=== PATIENT | male | born 1945 | race Caucasian/White ===

== ENCOUNTER 2017-08-02 14:51 | Inpatient (IN) | payer MEDICARE, MEDICAID ==
--- NOTE | 2017-08-02 15:30 | ED Physician Chart ---
ED Chief Complaint/HPI - Patient Information Date Seen:: 08/02/17 Time Seen:: 15:23 Chief Complaint:: Irrational behavior History of Present Illness:: 72 yo male refused to leave his relative's family and become forgetful. His relative called 911 saying the patient was an alcoholic and not welcomed. The patient was brought to ER and was put on 5150 hold by special police. The patient had multiple abrasions on face, bilateral elbows and knees. He had a G tube due to radiation therapy for his throat cancer. Allergies:: Allergies Allergy/AdvReac Type Severity Reaction Status Date / Time No Known Allergies Allergy Verified 08/02/17 15:10 Vitals:: Vital Signs - 8 hr 08/02/17 15:10 Temp 97.9 F HR 110 RR 16 BP 174/100 O2 Sat % 98 ED Review of Systems - Review of Systems General/Constitutional: No fever, No chills, Weakness Skin: Skin lesions Head: No headache Eyes: No pain ENT: No nasal drainage Neck: No neck pain Cardio Vascular: No chest pain Pulmonary: No SOB GI: No nausea, No vomiting Neurological: Confusion ED Past Medical History - Past Medical History Past Medical History: HTN, Other (G-tube, throat cancer) Social History: Non Smoker, Alcohol, No Drug Use Surgical History: PEG/GTube Family Medical History - Family Member Mother History Unknown: Yes Ethnicity: Non- Living Status: ED Physical Exam - Physical Examination General/Constitutional: Awake Eyes: PERRL ED Septic Shock - <6hrs of presentation: Vital Signs: Vital Signs - 8 hr 08/02/17 15:10 Temp 97.9 F HR 110 RR 16 BP 174/100 O2 Sat % 98
[2017-08-02 15:49] LABS: HEMATOCRIT 39.6 % (41.0-60); HEMOGLOBIN 13.2 gm/dL (12-16); MEAN CELL VOLUME 97.7 fl (80-99); MEAN CORPUSCULAR HEMOGLOBIN 32.6 pg (27.0-31.0); MEAN CORPUSCULAR HGB CONC 33.3 pg (28.0-36.0); MEAN PLATELET VOLUME 6.3 fl; PLATELET COUNT 353 Th/cmm (150-400); RED BLOOD COUNT 4.05 Mil/cmm (3.80-5.80); RED CELL DISTRIBUTION WIDTH 13.2 % (11.5-20.0); WHITE BLOOD COUNT 7.1 Th/cmm (4.8-10.8)
[2017-08-02 15:50] LABS: URINE MICROSCOPIC INDICATED? YES; URINE SOURCE RANDOM
[2017-08-02 15:52] LABS: URINE BILIRUBIN NEGATIVE (NEGATIVE); URINE BLOOD TRACE (NEGATIVE); URINE GLUCOSE (UA) NEGATIVE (NEGATIVE); URINE KETONE NEGATIVE (NEGATIVE); URINE LEUKOCYTE ESTERASE NEGATIVE (NEGATIVE); URINE NITRATE NEGATIVE (NEGATIVE); URINE PH 6.5 (4.6 - 8.0); URINE PROTEIN NEGATIVE (NEGATIVE); URINE UROBILINOGEN 0.2 E.U./dL (0.2 - 1.0)
[2017-08-02 15:56] LABS: URINE CLARITY CLEAR (CLEAR); URINE COLOR YELLOW
[2017-08-02 15:57] LABS: URINE RBC 0-2 /hpf (0-5)
[2017-08-02 15:58] LABS: URINE BACTERIA NONE SEEN /hpf (NONE SEEN); URINE EPITHELIAL CELLS NONE SEEN /lpf (FEW); URINE WBC 0-2 /hpf (0-5)
[2017-08-02 16:06] LABS: ALB/GLOB RATIO 1.1 (1.0-1.8); ALKALINE PHOSPHATASE 91 U/L (34-104); ANION GAP 13.5 (7.0-16.0); BILIRUBIN,TOTAL 0.9 mg/dL (0.3-1.0); BUN - UREA NITROGEN 8 mg/dL (7-25); CALCIUM SERUM 9.4 mg/dL (8.6-10.3); CARBON DIOXIDE 25.9 mEq/L (21.0-31.0); CHLORIDE 82 mEq/L (98-107); CREATININE - SERUM 0.8 mg/dL (0.7-1.3); GLUCOSE 85 mg/dL (70-105); POTASSIUM SERUM 3.4 mEq/L (3.5-5.1); SGOT 23 U/L (13-39); SGPT/ALT 9 U/L (7-52); TOTAL PROTEIN,SERUM 7.6 gm/dL (6.0-8.3)
[2017-08-02 16:13] LABS: SODIUM SERUM 118 mEq/L (136-145)
[2017-08-02] MEDS ORDERED: Potassium Chloride Elixir 20 mEq /15 mL UDC GT ONE (16:35)
[2017-08-02] MEDS ORDERED: Sodium Chloride 0.9% 1,000 ML IV ONE (16:35)
[2017-08-02 16:37] LABS: BAND NEUTROPHILE 3 % (0-10); LYMPHOCYTE 9 % (20-50); NEUTROPHILS 80 % (40-80); TOTAL CELLS COUNTED 100
[2017-08-02 16:38] LABS: BASOPHIL 0 % (0-3); EOSINOPHIL 4 % (0-5); MANUAL DIFF REQUIRED? YES; MONOCYTE 4 % (2-10)
[2017-08-02] MEDS ORDERED: Potassium Chloride Elixir 20 mEq /15 mL UDC ONE ×2 (16:41→16:57)
[2017-08-02] MEDS ORDERED: Ipratropium Neb 0.5 mg/2.5 mL UD HHN STA (17:10)
[2017-08-02] MEDS ORDERED: Ipratropium Neb 0.5 mg/2.5 mL UD HHN ONE (17:19)
[2017-08-02] MEDS ORDERED: Sodium Chloride 3% 300 ML IV ONE (19:04)
[2017-08-02] MEDS ORDERED: Piperacillin Sodium/Tazobact 3.375 gm Vial IV ONE (21:14)
[2017-08-02] MEDS ORDERED: Sodium Chloride 3% 500 ML IV ONE (21:37)
[2017-08-03 00:53] VITALS: BP 184/100
[2017-08-03 07:17] LABS: BASOPHILE ABSOLUTE 0.1 Th/cumm (0-0.2); EOSINOPHILE ABSOLUTE 0.4 Th/cmm (0.1-0.4); HEMATOCRIT 37.6 % (41.0-60); HEMOGLOBIN 12.6 gm/dL (12-16); LYMPHOCYTE ABSOLUTE 0.6 Th/cmm (1.5-3.0); MEAN CELL VOLUME 97.9 fl (80-99); MEAN CORPUSCULAR HEMOGLOBIN 32.7 pg (27.0-31.0); MEAN CORPUSCULAR HGB CONC 33.4 pg (28.0-36.0); MEAN PLATELET VOLUME 6.7 fl; NEUTROPHILE ABSOLUTE 4.2 Th/cmm (1.8-8.0); PLATELET COUNT 346 Th/cmm (150-400); RED BLOOD COUNT 3.84 Mil/cmm (3.80-5.80); RED CELL DISTRIBUTION WIDTH 13.4 % (11.5-20.0); WHITE BLOOD COUNT 6.3 Th/cmm (4.8-10.8)
[2017-08-03 07:19] LABS: % BASOPHILS 0.8 % (0.0-2.0); % EOSINOPHILS 7.1 % (0.0-5.0); % LYMPHOCYTES 9.9 % (20.0-50.0); % MONOCYTES 15.1 % (2.0-10.0); % NEUTROPHILS 67.1 % (40.0-80.0)
[2017-08-03 07:52] LABS: ALB/GLOB RATIO 1.1 (1.0-1.8); ALBUMIN 3.4 gm/dL (4.2-5.5); ALKALINE PHOSPHATASE 78 U/L (34-104); ANION GAP 8.8 (7.0-16.0); BILIRUBIN,TOTAL 1.3 mg/dL (0.3-1.0); BUN - UREA NITROGEN 11 mg/dL (7-25); CALCIUM SERUM 9.2 mg/dL (8.6-10.3); CARBON DIOXIDE 27.5 mEq/L (21.0-31.0); CHLORIDE 93 mEq/L (98-107); CREATININE - SERUM 0.9 mg/dL (0.7-1.3); GLUCOSE 137 mg/dL (70-105); POTASSIUM SERUM 3.3 mEq/L (3.5-5.1); SGOT 18 U/L (13-39); SGPT/ALT 7 U/L (7-52); SODIUM SERUM 126 mEq/L (136-145); TOTAL PROTEIN,SERUM 6.5 gm/dL (6.0-8.3)
[2017-08-03] MEDS: Albuterol/Ipratropium Neb 3 ML AERS HHN SCH ×3 (08:18→19:54)
--- NOTE | 2017-08-03 08:57 | Diagnostic Imaging Report ---
CHEST X-RAY: AP view INDICATION: pain COMPARISON: None FINDINGS: Chronic lung changes are seen with no focal consolidation or effusions. Heart size is normal. Left basal subsegmental atelectasis versus scarring is noted. Atherosclerosis is noted. Degenerative changes of spine are noted with scoliosis. IMPRESSION: Chronic lung changes with possible COPD. Left basal subsegmental atelectasis versus scarring. No focal consolidation identified Atherosclerotic vascular disease.
[2017-08-03 09:51] LABS: pH 7.49 (7.35-7.45)
--- NOTE | 2017-08-03 16:20 | History & Physical ---
ADMIT DATE: PATIENT IDENTIFICATION: A 72-year-old male. CHIEF COMPLAINT: "I am fine." HISTORY OF PRESENT ILLNESS: A 72-year-old male, who is an extremely poor historian, brought into the Emergency Room by [facility] when patient was visiting a family member and he was refused to leave and extremely combative. According to the note, the patient has history of alcoholism as well. When patient was brought in to the Emergency Room, the patient was placed on hold. The patient was noted to have multiple abrasions on the face as well as the elbows and knees as well. The patient has a G-tube due to radiation therapy for his throat cancer. I was trying to get meaningful history, but I was unsuccessful. PAST MEDICAL HISTORY: Remarkable for: 1. Throat cancer. 2. Dysphagia required gastrostomy tube placement. 3. DJD. 4. Possible underlying psychotic disorder. 5. Alcoholism use history. MEDICATIONS AT HOME: Unknown. ALLERGIES: None. SOCIAL HISTORY: According to the chart, the patient lives in [place]. The patient has a previous history of smoking cigarette and alcohol use according to the chart. FAMILY MEDICAL HISTORY: Unavailable. REVIEW OF SYSTEMS: Unable to obtain. PHYSICAL EXAMINATION: GENERAL: The patient is alert, awake, follows simple command. VITAL SIGNS: Temperature is 97.9, pulse is 110, respiratory rate is 16, blood pressure is 174/100 on arrival to Emergency Room. Currently, blood pressure reported is 159/69. HEENT: Normocephalic, atraumatic. Multiple superficial cuts noted. Extraocular muscles are intact. Tongue was pink and coated. NECK: Supple, no JVD, no hepatojugular reflex. No lymphadenopathy, thyromegaly. HEART: Both heart sounds are regular. CHEST AND LUNGS: Equal in expansion with no expiratory wheezing. ABDOMEN: Soft. No guarding or rigidity. Gastrostomy tube noted. Bowel sounds present. EXTREMITIES: No edema. Multiple abrasions involving upper and lower extremity noted. Peripheral +1. No calf tenderness. NEUROLOGIC: Limited. The patient is alert, awake, trying to follow commands. Decreased power throughout the upper and lower extremity noted. AVAILABLE DIAGNOSTIC DATA: The patient's white count is 7.1, hemoglobin is 13.2, platelet count is 353, pH of 7.49, pCO2 of 41, pO2 of 53, bicarbonate of 30.4. Sodium 118, potassium 3.4, chloride 82, CO2 of 25.9. BUN and creatinine 8 and 0.8, albumin of 4. Urine is unremarkable. Chest x-ray: No infiltrate, no congestion. CT head is unavailable for my review. CLINICAL IMPRESSION: 1. Hyponatremia, etiology needs to determine. Clinically, the patient looks euvolemic. SIADH is a possibility. 2. Altered mental status. Difficult to determine the baseline. Cannot rule out encephalopathy super-seated on underlying dementia. 3. Alcoholism history. 4. Status post gastrostomy tube placement for throat cancer. 5. Degenerative joint disease. 6. Peripheral vascular disease. 7. Social issue. PLAN: The patient is admitted at this time to telemetry unit. I will give him 3% sodium chloride of 300 mL and let his sodium go to the comfort level of about 125. The patient will have further workup for hyponatremia by checking serum osmolality, urine osmolality, serum uric acid, serum TSH level along with urine electrolytes as well. Nephrology consultation will be requested as well. Tube feeding will be started. The patient will be empirically placed on IV antibiotic and will proceed with CT scan of the head as well. Psychiatric consultation will be obtained as well considering the patient is placed on hold as well. The patient to have social service consultation for localization of the patient's family and getting more history in order to help this individual. JOB# [id number]
--- NOTE | 2017-08-03 23:21 | Consultation ---
DATE OF CONSULTATION: 08/03/2017 RENAL CONSULTATION REASON FOR CONSULTATION: Hyponatremia. HISTORY OF PRESENT ILLNESS: I was kindly asked to evaluate this 72-year-old male. The patient had some behavioral issues. Family called 911. The patient has a history of alcoholism. He was brought in by loan review officer at 5150. He was noted to have multiple abrasions on his face, elbow, and knees. He has a G-tube because of his history of throat cancer and radiation. When he came in, his serum sodium was 118. Therefore, I was called to evaluate the patient. PAST MEDICAL HISTORY: Includes hypertension, alcoholism and throat cancer. PAST SURGICAL HISTORY: PEG. SOCIAL HISTORY: Negative for smoking, alcohol, or drugs. He used to be an alcoholic. FAMILY HISTORY: Noncontributory. LABORATORY DATA: Shows white count is 6.3, H and H 12 and 37, and platelets 346. Serum sodium is 126, potassium is 3.3, and total bilirubin is 1.3. PHYSICAL EXAMINATION: VITAL SIGNS: Blood pressure is 159/69, heart rate is 75, and temperature 97.9. HEENT: Anicteric sclerae. NECK: Supple. No JVD. LUNGS: Clear to auscultation bilaterally. CARDIOVASCULAR: Regular rate and rhythm. ABDOMEN: Soft, nontender, nondistended. EXTREMITIES: No edema. ASSESSMENT AND PLAN: This is a 72-year-old male who appears to be dehydrated and received 3% saline, his serum sodium has improved. We will check magnesium and phosphorus and continue the patient on normal saline. JOB# [id number]
[2017-08-04] MEDS: Sodium Chloride 0.9% 1,000 ML IV SCH ×2 (03:15→21:40)
[2017-08-04 07:32] LABS: ANION GAP 7.4 (7.0-16.0); BUN - UREA NITROGEN 12 mg/dL (7-25); CALCIUM SERUM 9.6 mg/dL (8.6-10.3); CARBON DIOXIDE 28.9 mEq/L (21.0-31.0); CHLORIDE 99 mEq/L (98-107); GLUCOSE 119 mg/dL (70-105); MAGNESIUM 1.9 mg/dL (1.9-2.7); POTASSIUM SERUM 3.3 mEq/L (3.5-5.1); SODIUM SERUM 132 mEq/L (136-145)
[2017-08-04] MEDS: Albuterol/Ipratropium Neb 3 ML AERS HHN SCH ×3 (07:59→20:10)
--- NOTE | 2017-08-04 10:23 | Diagnostic Imaging Report ---
Head CT without intravenous contrast Indication: Altered level of consciousness Comparison: None Technique: Axial images were obtained from the vertex to the skull base without IV contrast. Coronal reconstructions were made. Total DLP: 638, CTDI32 FINDINGS: Images of the brain obtained without contrast demonstrate no evidence of an acute hemorrhage. Atrophy is noted. Large CSF space of the left temporal lobe is noted measuring 4.2 x 3.9 cm. Mild white matter disease is noted. The ventricles and basal cisterns are patent. No mass effect or midline shift. Sclerotic bilateral mastoid air cells are noted with small amount of fluid. No evidence of a skull fracture or focal soft tissue swelling. There is mucosal thickening of the paranasal sinuses. Atherosclerosis is noted. IMPRESSION: No evidence of an acute intracranial hemorrhage. Atrophy. Mild supratentorial white matter disease which is nonspecific and may be due to chronic microvessel ischemia. Large left temporal lobe arachnoid cyst which may be congenital. Atherosclerosis. Bilateral mastoid air cell disease with scarring changes likely due to chronic inflammatory process.
--- NOTE | 2017-08-04 17:27 | General Progress Note ---
Subjective - Review of Systems Service Date: 08/04/17 Subjective: pt seen and examined Objective - Results Result Diagrams: 08/03/17 06:57 08/04/17 06:42 Recent Labs: Laboratory Last Values WBC 6.3 Th/cmm (4.8-10.8) 08/03/17 06:57 RBC 3.84 Mil/cmm (3.80-5.80) 08/03/17 06:57 Hgb 12.6 gm/dL (12-16) 08/03/17 06:57 Hct 37.6 % (41.0-60) L 08/03/17 06:57 MCV 97.9 fl (80-99) 08/03/17 06:57 MCH 32.7 pg (27.0-31.0) H 08/03/17 06:57 MCHC Differential 33.4 pg (28.0-36.0) 08/03/17 06:57 RDW 13.4 % (11.5-20.0) 08/03/17 06:57 Plt Count 346 Th/cmm (150-400) 08/03/17 06:57 MPV 6.7 fl 08/03/17 06:57 Neutrophils % 67.1 % (40.0-80.0) 08/03/17 06:57 Band Neutrophils % 3 % (0-10) 08/02/17 15:43 Lymphocytes % 9.9 % (20.0-50.0) L 08/03/17 06:57 Monocytes % 15.1 % (2.0-10.0) H 08/03/17 06:57 Eosinophils % 7.1 % (0.0-5.0) H 08/03/17 06:57 Basophils % 0.8 % (0.0-2.0) 08/03/17 06:57 Neutrophils (Manual) 80 % (40-80) 08/02/17 15:43 Lymphocytes 9 % (20-50) L 08/02/17 15:43 Monocytes 4 % (2-10) 08/02/17 15:43 Eosinophils 4 % (0-5) 08/02/17 15:43 Basophils 0 % (0-3) 08/02/17 15:43 Specimen Source Arterial 08/02/17 09:33 Sample Site RB 08/02/17 09:33 pH 7.49 (7.35-7.45) H 08/02/17 09:33 pCO2 41.0 mmHg (35.0-45.0) 08/02/17 09:33 pO2 53.0 mmHg (80.0-100.0) L 08/02/17 09:33 HCO3 30.4 mEq/L (20.0-26.0) H 08/02/17 09:33 Base Excess 7.2 mEq/L (-3.0-3.0) H 08/02/17 09:33 O2 Saturation 90.0 % (92.0-100.0) L 08/02/17 09:33 Bladimir Test NA 08/02/17 09:33 Vent Rate NA 08/02/17 09:33 Inspired O2 21 08/02/17 09:33 Tidal Volume NA 08/02/17 09:33 PEEP NA 08/02/17 09:33 Pressure (ins/psv/peep) NA 08/02/17 09:33 Critical Value LZHANG 08/02/17 09:33 Sodium 132 mEq/L (136-145) L 08/04/17 06:42 Potassium 3.3 mEq/L (3.5-5.1) L 08/04/17 06:42 Chloride 99 mEq/L (98-107) 08/04/17 06:42 Carbon Dioxide 28.9 mEq/L (21.0-31.0) 08/04/17 06:42 Anion Gap 7.4 (7.0-16.0) 08/04/17 06:42 BUN 12 mg/dL (7-25) 08/04/17 06:42 Creatinine 1.0 mg/dL (0.7-1.3) 08/04/17 06:42 Est GFR ( Amer) TNP 08/04/17 06:42 Est GFR (Non-Af Amer) TNP 08/04/17 06:42 BUN/Creatinine Ratio 12.0 08/04/17 06:42 Glucose 119 mg/dL (70-105) H 08/04/17 06:42 Uric Acid 5.3 mg/dL (4.4-7.6) 08/02/17 15:43 Calcium 9.6 mg/dL (8.6-10.3) 08/04/17 06:42 Magnesium 1.9 mg/dL (1.9-2.7) 08/04/17 06:42 Total Bilirubin 1.3 mg/dL (0.3-1.0) H 08/03/17 06:57 AST 18 U/L (13-39) 08/03/17 06:57 ALT 7 U/L (7-52) 08/03/17 06:57 Alkaline Phosphatase 78 U/L (34-104) 08/03/17 06:57 Ammonia 48 umol/L (16-53) 08/03/17 03:10 Total Protein 6.5 gm/dL (6.0-8.3) 08/03/17 06:57 Albumin 3.4 gm/dL (4.2-5.5) L 08/03/17 06:57 Globulin 3.1 gm/dL 08/03/17 06:57 Albumin/Globulin Ratio 1.1 (1.0-1.8) 08/03/17 06:57 TSH 5.34 uIU/ml (0.34-5.60) 08/02/17 15:43 Urine Source RANDOM 08/02/17 15:00 Urine Color YELLOW 08/02/17 15:00 Urine Clarity CLEAR (CLEAR) 08/02/17 15:00 Urine pH 6.5 (4.6 - 8.0) 08/02/17 15:00 Ur Specific [place] <= 1.005 (1.005-1.030) 08/02/17 15:00 Urine Protein NEGATIVE mg/dL (NEGATIVE) 08/02/17 15:00 Urine Glucose (UA) NEGATIVE mg/dL (NEGATIVE) 08/02/17 15:00 Urine Ketones NEGATIVE mg/dL (NEGATIVE) 08/02/17 15:00 Urine Blood TRACE (NEGATIVE) 08/02/17 15:00 Urine Nitrate NEGATIVE (NEGATIVE) 08/02/17 15:00 Urine Bilirubin NEGATIVE (NEGATIVE) 08/02/17 15:00 Urine Urobilinogen 0.2 E.U./dL (0.2 - 1.0) 08/02/17 15:00 Ur Leukocyte Esterase NEGATIVE (NEGATIVE) 08/02/17 15:00 Urine RBC 0-2 /hpf (0-5) H 08/02/17 15:00 Urine WBC 0-2 /hpf (0-5) 08/02/17 15:00 Ur Epithelial Cells NONE SEEN /lpf (FEW) 08/02/17 15:00 Urine Bacteria NONE SEEN /hpf (NONE SEEN) 08/02/17 15:00 - Physical Exam Vitals and I&O: Vital Signs Temp 97.9 F 08/04/17 04:00 Pulse 82 08/04/17 14:21 Resp 18 08/04/17 12:30 BP 184/108 08/04/17 14:21 Pulse Ox 96 08/04/17 12:30 Intake & Output 08/03/17 08/04/17 08/04/17 17:59 06:59 18:59 Intake Total 50 Balance 50 Weight (lbs) Intake: Intake, IV Amount 50 Piperacillin Sodium/ 50 Tazobact 3.375 gm In Sodium Chloride 0.9% 50 ml @ 100 mls/hr IV Q6H [facility] Rx#:[id number] Tube Feeding Other Other: # Voids Active Medications: Current Medications Acetaminophen (Tylenol) 650 mg PO Q6H PRN PRN Reason: Mild Pain/Headache/T above 101 Stop: 10/01/17 19:00 Albuterol/Ipratropium (Duoneb Neb) 3 ml HHN [id number] [facility] Stop: 10/02/17 06:59 Last Admin: 08/04/17 12:14 Dose: 3 ml Carvedilol (Coreg) 6.25 mg PO BID [facility] Stop: 10/03/17 13:44 Last Admin: 08/04/17 14:21 Dose: 6.25 mg Piperacillin Sod/Tazobactam (Sod 3.375 gm/ Sodium Chloride) 50 mls @ 100 mls/ hr IV Q6H [facility] Stop: 10/01/17 20:59 Last Infusion: 08/04/17 11:00 Dose: Infused Sodium Chloride (Nacl 0.9%) 1,000 mls @ 75 mls/hr IV .[id number] [facility] Stop: 10/02/17 12:14 Last Admin: 08/04/17 03:15 Dose: 75 mls/hr Ondansetron HCl (Zofran) 4 mg IVP Q6H PRN PRN Reason: Nausea / Vomiting Stop: 10/01/17 19:00 Sodium Chloride (Saline Flush) 10 ml IV QSHIFT [facility] Stop: 10/01/17 19:59 Last Admin: 08/03/17 23:47 Dose: Not Given General: Cooperative HEENT: PERRLA Neck: Supple Cardiovascular: Regular rate, Normal S1, Normal S2 Lungs: Clear to auscultation Abdomen: Bowel sounds Assessment/Plan - Assessment Assessment: hyponatremia hypokalemia alcoholism - Plan Plan: continue IVF replace potassium
[2017-08-04] MEDS ORDERED: Potassium Phosphate 20 MMOLE in Sodium Chloride 0.9% 250 ML IV ONE (17:29)
[2017-08-04] MEDS ORDERED: POTASSIUM CHLORIDE IV ONE (18:30)
[2017-08-04] MEDS ORDERED: SODIUM CHLORIDE 0.9% IV ONE (18:30)
[2017-08-04] MEDS ORDERED: KCL 20mEq/100mL Premix 20 MEQ/100 ML PIGGYBACK IV ONE (21:22)
--- NOTE | 2017-08-04 23:58 | Progress Notes ---
DATE: 08/04/2017 SUBJECTIVE: The patient seen and examined. The patient is lying in the bed. The patient does not provide any meaningful history today. PHYSICAL EXAMINATION: VITAL SIGNS: Temperature 98, pulse is 82, respiratory rate 18, and blood pressure 184/100. HEENT: No facial asymmetry. Multiple superficial cuts noted. NECK: Supple, no JVD. HEART: Regular. CHEST: Lung equal in expansion with expiratory wheezing. ABDOMEN: Soft. Gastrostomy tube noted. EXTREMITIES: No edema. NEUROLOGIC: Alert, awake, follows commands. CLINICAL IMPRESSION: 1. Hyponatremia, better. 2. Hypokalemia. 3. Hypertension. 4. Dysphagia, required gastrostomy tube placement. 5. Degenerative joint disease. 6. Underlying psychotic disorder. 7. Alcoholism. 8. Decline in self-care and mobility. PLAN: The patient's sodium looks acceptable range. Continue to provide tube feeding. General nursing care along with adding carvedilol 6.25 mg b.i.d. for the hypertension and provide broad-spectrum antibiotic as the patient was receiving until we get the cultures back. The patient will have psych evaluation in the view of patient is on hold. Care plan reviewed and discussed with staff. JOB# [id number]
[2017-08-05 07:18] LABS: ANION GAP 10.1 (7.0-16.0); BUN - UREA NITROGEN 9 mg/dL (7-25); CALCIUM SERUM 9.4 mg/dL (8.6-10.3); CARBON DIOXIDE 30.1 mEq/L (21.0-31.0); CHLORIDE 96 mEq/L (98-107); CREATININE - SERUM 0.9 mg/dL (0.7-1.3); GLUCOSE 139 mg/dL (70-105); POTASSIUM SERUM 3.2 mEq/L (3.5-5.1); SODIUM SERUM 133 mEq/L (136-145)
[2017-08-05] MEDS: Albuterol/Ipratropium Neb 3 ML AERS HHN SCH ×3 (07:25→19:33)
[2017-08-05] MEDS ORDERED: Potassium Chloride 20 mEq ER Tab PO ONE (12:00)
--- NOTE | 2017-08-05 16:42 | General Progress Note ---
Subjective - Review of Systems Service Date: 08/05/17 Subjective: pt seen and examined Objective - Results Result Diagrams: 08/03/17 06:57 08/05/17 06:25 Recent Labs: Laboratory Last Values WBC 6.3 Th/cmm (4.8-10.8) 08/03/17 06:57 RBC 3.84 Mil/cmm (3.80-5.80) 08/03/17 06:57 Hgb 12.6 gm/dL (12-16) 08/03/17 06:57 Hct 37.6 % (41.0-60) L 08/03/17 06:57 MCV 97.9 fl (80-99) 08/03/17 06:57 MCH 32.7 pg (27.0-31.0) H 08/03/17 06:57 MCHC Differential 33.4 pg (28.0-36.0) 08/03/17 06:57 RDW 13.4 % (11.5-20.0) 08/03/17 06:57 Plt Count 346 Th/cmm (150-400) 08/03/17 06:57 MPV 6.7 fl 08/03/17 06:57 Neutrophils % 67.1 % (40.0-80.0) 08/03/17 06:57 Band Neutrophils % 3 % (0-10) 08/02/17 15:43 Lymphocytes % 9.9 % (20.0-50.0) L 08/03/17 06:57 Monocytes % 15.1 % (2.0-10.0) H 08/03/17 06:57 Eosinophils % 7.1 % (0.0-5.0) H 08/03/17 06:57 Basophils % 0.8 % (0.0-2.0) 08/03/17 06:57 Neutrophils (Manual) 80 % (40-80) 08/02/17 15:43 Lymphocytes 9 % (20-50) L 08/02/17 15:43 Monocytes 4 % (2-10) 08/02/17 15:43 Eosinophils 4 % (0-5) 08/02/17 15:43 Basophils 0 % (0-3) 08/02/17 15:43 Specimen Source Arterial 08/02/17 09:33 Sample Site RB 08/02/17 09:33 pH 7.49 (7.35-7.45) H 08/02/17 09:33 pCO2 41.0 mmHg (35.0-45.0) 08/02/17 09:33 pO2 53.0 mmHg (80.0-100.0) L 08/02/17 09:33 HCO3 30.4 mEq/L (20.0-26.0) H 08/02/17 09:33 Base Excess 7.2 mEq/L (-3.0-3.0) H 08/02/17 09:33 O2 Saturation 90.0 % (92.0-100.0) L 08/02/17 09:33 Bladimir Test NA 08/02/17 09:33 Vent Rate NA 08/02/17 09:33 Inspired O2 21 08/02/17 09:33 Tidal Volume NA 08/02/17 09:33 PEEP NA 08/02/17 09:33 Pressure (ins/psv/peep) NA 08/02/17 09:33 Critical Value LZHANG 08/02/17 09:33 Sodium 133 mEq/L (136-145) L 08/05/17 06:25 Potassium 3.2 mEq/L (3.5-5.1) L 08/05/17 06:25 Chloride 96 mEq/L (98-107) L 08/05/17 06:25 Carbon Dioxide 30.1 mEq/L (21.0-31.0) 08/05/17 06:25 Anion Gap 10.1 (7.0-16.0) 08/05/17 06:25 BUN 9 mg/dL (7-25) 08/05/17 06:25 Creatinine 0.9 mg/dL (0.7-1.3) 08/05/17 06:25 Est GFR ( Amer) TNP 08/05/17 06:25 Est GFR (Non-Af Amer) TNP 08/05/17 06:25 BUN/Creatinine Ratio 10.0 08/05/17 06:25 Glucose 139 mg/dL (70-105) H 08/05/17 06:25 Plasma/Ser Osmolality 255 mOsmol/kg (280-301) L 08/02/17 15:43 Uric Acid 5.3 mg/dL (4.4-7.6) 08/02/17 15:43 Calcium 9.4 mg/dL (8.6-10.3) 08/05/17 06:25 Magnesium 1.9 mg/dL (1.9-2.7) 08/04/17 06:42 Total Bilirubin 1.3 mg/dL (0.3-1.0) H 08/03/17 06:57 AST 18 U/L (13-39) 08/03/17 06:57 ALT 7 U/L (7-52) 08/03/17 06:57 Alkaline Phosphatase 78 U/L (34-104) 08/03/17 06:57 Ammonia 48 umol/L (16-53) 08/03/17 03:10 Total Protein 6.5 gm/dL (6.0-8.3) 08/03/17 06:57 Albumin 3.4 gm/dL (4.2-5.5) L 08/03/17 06:57 Globulin 3.1 gm/dL 08/03/17 06:57 Albumin/Globulin Ratio 1.1 (1.0-1.8) 08/03/17 06:57 TSH 5.34 uIU/ml (0.34-5.60) 08/02/17 15:43 Urine Source RANDOM 08/02/17 15:00 Urine Color YELLOW 08/02/17 15:00 Urine Clarity CLEAR (CLEAR) 08/02/17 15:00 Urine pH 6.5 (4.6 - 8.0) 08/02/17 15:00 Ur Specific [place] <= 1.005 (1.005-1.030) 08/02/17 15:00 Urine Protein NEGATIVE mg/dL (NEGATIVE) 08/02/17 15:00 Urine Glucose (UA) NEGATIVE mg/dL (NEGATIVE) 08/02/17 15:00 Urine Ketones NEGATIVE mg/dL (NEGATIVE) 08/02/17 15:00 Urine Blood TRACE (NEGATIVE) 08/02/17 15:00 Urine Nitrate NEGATIVE (NEGATIVE) 08/02/17 15:00 Urine Bilirubin NEGATIVE (NEGATIVE) 08/02/17 15:00 Urine Urobilinogen 0.2 E.U./dL (0.2 - 1.0) 08/02/17 15:00 Ur Leukocyte Esterase NEGATIVE (NEGATIVE) 08/02/17 15:00 Urine RBC 0-2 /hpf (0-5) H 08/02/17 15:00 Urine WBC 0-2 /hpf (0-5) 08/02/17 15:00 Ur Epithelial Cells NONE SEEN /lpf (FEW) 08/02/17 15:00 Urine Bacteria NONE SEEN /hpf (NONE SEEN) 08/02/17 15:00 - Physical Exam Vitals and I&O: Vital Signs Temp 98.4 F 08/05/17 04:00 Pulse 68 08/05/17 16:32 Resp 18 08/05/17 12:01 BP 168/91 08/05/17 16:32 Pulse Ox 98 08/05/17 12:01 Intake & Output 08/04/17 08/05/17 08/05/17 18:59 06:59 18:59 Intake Total 1100 1755 50 Balance 1100 1755 50 Weight (lbs) 60.01 kg Intake: Intake, IV Amount 1100 205 50 Piperacillin Sodium/ 100 100 50 Tazobact 3.375 gm In Sodium Chloride 0.9% 50 ml @ 100 mls/hr IV Q6H [facility] Rx#:[id number] Potassium Chloride 20 meq 105 In Sodium Chloride 0.9% 95 ml @ 50 mls/hr IV X1 ONE Rx#:[id number] Sodium Chloride 0.9% 1, 1000 000 ml @ 75 mls/hr IV . [id number] [facility] Rx#:[id number] Oral 0 Tube Feeding 1150 Other 400 Other: # Voids 2 # Bowel Movements 1 Active Medications: Current Medications Acetaminophen (Tylenol) 650 mg PO Q6H PRN PRN Reason: Mild Pain/Headache/T above 101 Stop: 10/01/17 19:00 Last Admin: 08/05/17 04:46 Dose: 650 mg Albuterol/Ipratropium (Duoneb Neb) 3 ml HHN [id number] [facility] Stop: 10/02/17 06:59 Last Admin: 08/05/17 12:00 Dose: 3 ml Carvedilol (Coreg) 6.25 mg PO BID [facility] Stop: 10/03/17 13:44 Last Admin: 08/05/17 16:32 Dose: 6.25 mg Piperacillin Sod/Tazobactam (Sod 3.375 gm/ Sodium Chloride) 50 mls @ 100 mls/ hr IV Q6H [facility] Stop: 10/01/17 20:59 Last Admin: 08/05/17 16:33 Dose: 100 mls/hr Sodium Chloride (Nacl 0.9%) 1,000 mls @ 75 mls/hr IV .[id number] [facility] Stop: 10/02/17 12:14 Last Admin: 08/04/17 21:40 Dose: 75 mls/hr Ondansetron HCl (Zofran) 4 mg IVP Q6H PRN PRN Reason: Nausea / Vomiting Stop: 10/01/17 19:00 Sodium Chloride (Saline Flush) 10 ml IV QSHIFT [facility] Stop: 10/01/17 19:59 Last Admin: 08/05/17 09:27 Dose: 10 ml General: Cooperative HEENT: PERRLA Neck: Supple Cardiovascular: Regular rate, Normal S1, Normal S2 Lungs: Clear to auscultation Abdomen: Bowel sounds Assessment/Plan - Assessment Assessment: hyponatremia hypokalemia alcoholism - Plan Plan: continue IVF replace potassium
--- NOTE | 2017-08-05 19:29 | Consultation ---
DATE OF CONSULTATION: 08/05/2017 REASON FOR CONSULTATION: Psych eval. HISTORY OF PRESENT ILLNESS: A 72-year-old male, very poor historian, brought into the ER by [employer] police. He was visiting a family, refusing to leave, was combative; also with history of alcoholism, placed on a hold. On [id number], the patient is confused as to why he is here. He does not know where he is, he does not know what is going on. He does know the year, he knows the month, he is not quite sure about the day of the week, but he has no idea why he is here other than "animation director brought me here." Forgets that he had become unruly. Denies depression, anxiety. States he wants to go home. He believes he can live alone, although he has a lot medical problems and has been really confused upon admission. PAST PSYCHIATRIC HISTORY: Rule out dementia. FAMILY HISTORY: Noncontributory. SOCIAL HISTORY: Lives in [place], born in [place], . He states he has 4 kids. It is unclear how involved they are. PAST MEDICAL HISTORY: Hyponatremia, gastrostomy tube, DJD, PVD. MEDICATIONS: Noted. MENTAL STATUS EXAMINATION: Stated age. Fair eye contact. Speech within normal limits. Mood "Okay." Thought processes were somewhat disoriented. No overt SI or HI. Impulse control, questionable. Insight poor. PROVISIONAL DIAGNOSIS: Mood unspecified, anxiety unspecified, rule out dementia. MEDICAL: Please see full H and P. RECOMMENDATIONS AND PLAN: Continue hospitalization. We will initiate a 14-day hold for grave disability. He is not dangerous or combative at this time, it seems that he was upset and was combative because he was so confused and disoriented, but seems to be calmer now. Plan will be to initiate a 14-day hold. He may need Geropsych placement. There are also concerns about his ability to care for his basic needs outside of the hospital setting. JOB# [id number]
[2017-08-05] MEDS: Sodium Chloride 0.9% 1,000 ML IV SCH (22:00)
--- NOTE | 2017-08-06 01:20 | Consultation ---
DATE OF CONSULTATION: 08/05/2017 INPATIENT GASTROINTESTINAL CONSULTATION REFERRING PHYSICIAN: Dr. Kim. REASON FOR CONSULTATION: Altered level of consciousness. HISTORY OF PRESENT ILLNESS: A 72-year-old male who was brought to the hospital because apparently was combative and was confused. In discussing the matter with the patient, he denies being confused, he states he is fine, denies having any abdominal pain, wants to be released and go home. PAST MEDICAL HISTORY: Throat cancer, dysphagia, degenerative joint disease, and alcoholic history. PAST SURGICAL HISTORY: PEG tube placement. FAMILY HISTORY: Noncontributory. PAST SOCIAL HISTORY: Positive for tobacco and alcohol. No IV drug usage. ALLERGIES: None. CURRENT MEDICATIONS: Tylenol, Coreg, Zofran, Zosyn, and normal saline. REVIEW OF SYSTEMS: Ten-point review of system was performed and the pertinent positive was the history of throat cancer, dysphagia. All other systems were unremarkable. PHYSICAL EXAMINATION: VITAL SIGNS: Temperature is 98.4, breathing 18, pulse of 65, blood pressure is 146/80, and satting 97%. GENERAL: In no apparent distress. EYES: Anicteric. Normal conjunctivae. HEENT: Normocephalic and atraumatic. Moist mucous membranes. NECK: Soft and supple. CHEST: Clear. No effort. CARDIOVASCULAR: Regular rate and rhythm. ABDOMEN: Soft, nontender, and nondistended with G-tube. SKIN: Warm and dry. EXTREMITIES: Revealed no cyanosis. PSYCHOLOGIC: Alert and oriented x 3. LABORATORY DATA: Labs show white count 6.3, hemoglobin 12.6, and platelets of 346. IMPRESSION: This is a 72-year-old male with alleged altered level of consciousness. During our interview, the patient does not exhibit any signs of confusion. He is alert and oriented x 3. His ammonia level was reviewed and was within normal limits. PLAN: 1. Continue supportive care. 2. Avoid alcohol, join AA. 3. Should the patient become confused, trial of lactulose and Xifaxan may be considered in the future. 4. He should follow up with his primary care provider and be followed for any forms of chronic liver illnesses. 5. His admitting LFTs were within normal limits, but this could also be reexamined as an outpatient with his primary care provider for any signs of liver disease. Thank you for allowing me to participate. Please call me if you have any questions. JOB# [id number]
--- NOTE | 2017-08-06 04:01 | Progress Notes ---
DATE: 08/05/2017 PATIENT IDENTIFICATION: A 72-year-old male. SUBJECTIVE: The patient seen and examined. The patient is alert, awake, oriented. The patient still wants to go home. At this time, the patient lives by himself in [facility]. He does get his G-tube feeding and he uses 6-7 cans a day every day. The patient currently has mild cough. He has a history of hypertension and for that he has been followed by his primary care physician ____. The [facility] is [facility]. Currently, psych evaluation is currently pending. PHYSICAL EXAMINATION: VITAL SIGNS: On today's exam, temperature 98.4, pulse 66, respiratory 18, blood pressure 146/80. HEENT: No facial asymmetry. Oropharynx congested. NECK: Supple, no JVD. HEART: Regular. CHEST: Lung equal in expansion with expiratory wheezing. ABDOMEN: Soft. Bowel sounds are present. Gastrostomy tube noted. EXTREMITIES: No edema. Multiple superficial cuts noted. AVAILABLE DIAGNOSTIC DATA: Sodium 133, potassium 3.2, chloride 96, CO2 of 30, BUN and creatinine is 9 and 0.9. CLINICAL IMPRESSION: 1. Altered level of consciousness, significantly improved. 2. Hyponatremia, improving. 3. Hypokalemia. 4. Status post gastrostomy tube placement with severe dysphagia for throat cancer. 5. Hypertension. 6. Degenerative joint disease. 7. High risk for fall. PLAN: 1. Replace potassium. 2. Psych consult. 3. Hold to be lift up. The patient to start physical therapy and occupational therapy. We will follow up on consult recommendations along with. Continue his antihypertensive medication. Care plan is reviewed. Discharge planning to home since the patient lives at home with a structured environment. Care plan has been reviewed and discussed with the staff. JOB# [id number]
[2017-08-06 06:36] LABS: % BASOPHILS 1.2 % (0.0-2.0); % EOSINOPHILS 23.9 % (0.0-5.0); % MONOCYTES 11.6 % (2.0-10.0); % NEUTROPHILS 51.3 % (40.0-80.0); BASOPHILE ABSOLUTE 0.1 Th/cumm (0-0.2); EOSINOPHILE ABSOLUTE 1.6 Th/cmm (0.1-0.4); HEMATOCRIT 37.2 % (41.0-60); HEMOGLOBIN 12.6 gm/dL (12-16); LYMPHOCYTE ABSOLUTE 0.8 Th/cmm (1.5-3.0); MEAN CELL VOLUME 97.6 fl (80-99); MEAN CORPUSCULAR HEMOGLOBIN 33.1 pg (27.0-31.0); MEAN PLATELET VOLUME 6.9 fl; MONOCYTE ABSOLUTE 0.8 Th/cmm (0.3-1.0); NEUTROPHILE ABSOLUTE 3.6 Th/cmm (1.8-8.0); PLATELET COUNT 365 Th/cmm (150-400); RED BLOOD COUNT 3.81 Mil/cmm (3.80-5.80); RED CELL DISTRIBUTION WIDTH 13.6 % (11.5-20.0); WHITE BLOOD COUNT 6.9 Th/cmm (4.8-10.8)
[2017-08-06 07:08] LABS: ANION GAP 8.7 (7.0-16.0); BUN - UREA NITROGEN 10 mg/dL (7-25); CALCIUM SERUM 9.5 mg/dL (8.6-10.3); CHLORIDE 96 mEq/L (98-107); CREATININE - SERUM 0.9 mg/dL (0.7-1.3); GLUCOSE 120 mg/dL (70-105); POTASSIUM SERUM 3.7 mEq/L (3.5-5.1); SODIUM SERUM 131 mEq/L (136-145)
[2017-08-06] MEDS: Albuterol/Ipratropium Neb 3 ML AERS HHN SCH ×3 (07:20→19:10)
--- NOTE | 2017-08-06 09:35 | General Progress Note ---
Subjective - Review of Systems Service Date: 08/06/17 Subjective: Patient is seen and examined. Patient lying comfortably. GI consult is still pending. Patient is seen by psychiatrist and patient is placed on hold. Patient denies any chest pain, shortness of breath, palpitation, dizziness, nausea, vomiting, headache. Objective - Results Result Diagrams: 08/06/17 06:08 08/06/17 06:08 Recent Labs: Laboratory Last Values WBC 6.9 Th/cmm (4.8-10.8) 08/06/17 06:08 RBC 3.81 Mil/cmm (3.80-5.80) 08/06/17 06:08 Hgb 12.6 gm/dL (12-16) 08/06/17 06:08 Hct 37.2 % (41.0-60) L 08/06/17 06:08 MCV 97.6 fl (80-99) 08/06/17 06:08 MCH 33.1 pg (27.0-31.0) H 08/06/17 06:08 MCHC Differential 34.0 pg (28.0-36.0) 08/06/17 06:08 RDW 13.6 % (11.5-20.0) 08/06/17 06:08 Plt Count 365 Th/cmm (150-400) 08/06/17 06:08 MPV 6.9 fl 08/06/17 06:08 Neutrophils % 51.3 % (40.0-80.0) 08/06/17 06:08 Band Neutrophils % 3 % (0-10) 08/02/17 15:43 Lymphocytes % 12.0 % (20.0-50.0) L 08/06/17 06:08 Monocytes % 11.6 % (2.0-10.0) H 08/06/17 06:08 Eosinophils % 23.9 % (0.0-5.0) H 08/06/17 06:08 Basophils % 1.2 % (0.0-2.0) 08/06/17 06:08 Neutrophils (Manual) 80 % (40-80) 08/02/17 15:43 Lymphocytes 9 % (20-50) L 08/02/17 15:43 Monocytes 4 % (2-10) 08/02/17 15:43 Eosinophils 4 % (0-5) 08/02/17 15:43 Basophils 0 % (0-3) 08/02/17 15:43 Specimen Source Arterial 08/02/17 09:33 Sample Site RB 08/02/17 09:33 pH 7.49 (7.35-7.45) H 08/02/17 09:33 pCO2 41.0 mmHg (35.0-45.0) 08/02/17 09:33 pO2 53.0 mmHg (80.0-100.0) L 08/02/17 09:33 HCO3 30.4 mEq/L (20.0-26.0) H 08/02/17 09:33 Base Excess 7.2 mEq/L (-3.0-3.0) H 08/02/17 09:33 O2 Saturation 90.0 % (92.0-100.0) L 08/02/17 09:33 Bladimir Test NA 08/02/17 09:33 Vent Rate NA 08/02/17 09:33 Inspired O2 21 08/02/17 09:33 Tidal Volume NA 08/02/17 09:33 PEEP NA 08/02/17 09:33 Pressure (ins/psv/peep) NA 08/02/17 09:33 Critical Value LZHANG 08/02/17 09:33 Sodium 131 mEq/L (136-145) L 08/06/17 06:08 Potassium 3.7 mEq/L (3.5-5.1) 08/06/17 06:08 Chloride 96 mEq/L (98-107) L 08/06/17 06:08 Carbon Dioxide 30.0 mEq/L (21.0-31.0) 08/06/17 06:08 Anion Gap 8.7 (7.0-16.0) 08/06/17 06:08 BUN 10 mg/dL (7-25) 08/06/17 06:08 Creatinine 0.9 mg/dL (0.7-1.3) 08/06/17 06:08 Est GFR ( Amer) TNP 08/06/17 06:08 Est GFR (Non-Af Amer) TNP 08/06/17 06:08 BUN/Creatinine Ratio 11.1 08/06/17 06:08 Glucose 120 mg/dL (70-105) H 08/06/17 06:08 Plasma/Ser Osmolality 255 mOsmol/kg (280-301) L 08/02/17 15:43 Uric Acid 5.3 mg/dL (4.4-7.6) 08/02/17 15:43 Calcium 9.5 mg/dL (8.6-10.3) 08/06/17 06:08 Magnesium 1.9 mg/dL (1.9-2.7) 08/04/17 06:42 Total Bilirubin 1.3 mg/dL (0.3-1.0) H 08/03/17 06:57 AST 18 U/L (13-39) 08/03/17 06:57 ALT 7 U/L (7-52) 08/03/17 06:57 Alkaline Phosphatase 78 U/L (34-104) 08/03/17 06:57 Ammonia 48 umol/L (16-53) 08/03/17 03:10 Total Protein 6.5 gm/dL (6.0-8.3) 08/03/17 06:57 Albumin 3.4 gm/dL (4.2-5.5) L 08/03/17 06:57 Globulin 3.1 gm/dL 08/03/17 06:57 Albumin/Globulin Ratio 1.1 (1.0-1.8) 08/03/17 06:57 TSH 5.34 uIU/ml (0.34-5.60) 08/02/17 15:43 Urine Source RANDOM 08/02/17 15:00 Urine Color YELLOW 08/02/17 15:00 Urine Clarity CLEAR (CLEAR) 08/02/17 15:00 Urine pH 6.5 (4.6 - 8.0) 08/02/17 15:00 Ur Specific [place] <= 1.005 (1.005-1.030) 08/02/17 15:00 Urine Protein NEGATIVE mg/dL (NEGATIVE) 08/02/17 15:00 Urine Glucose (UA) NEGATIVE mg/dL (NEGATIVE) 08/02/17 15:00 Urine Ketones NEGATIVE mg/dL (NEGATIVE) 08/02/17 15:00 Urine Blood TRACE (NEGATIVE) 08/02/17 15:00 Urine Nitrate NEGATIVE (NEGATIVE) 08/02/17 15:00 Urine Bilirubin NEGATIVE (NEGATIVE) 08/02/17 15:00 Urine Urobilinogen 0.2 E.U./dL (0.2 - 1.0) 08/02/17 15:00 Ur Leukocyte Esterase NEGATIVE (NEGATIVE) 08/02/17 15:00 Urine RBC 0-2 /hpf (0-5) H 08/02/17 15:00 Urine WBC 0-2 /hpf (0-5) 08/02/17 15:00 Ur Epithelial Cells NONE SEEN /lpf (FEW) 08/02/17 15:00 Urine Bacteria NONE SEEN /hpf (NONE SEEN) 08/02/17 15:00 - Physical Exam Vitals and I&O: Vital Signs Temp 97.4 F 08/06/17 04:00 Pulse 61 08/06/17 09:30 Resp 18 08/06/17 07:21 BP 164/91 08/06/17 09:30 Pulse Ox 96 08/06/17 07:21 Intake & Output 08/05/17 08/06/17 08/06/17 18:59 06:59 18:59 Intake Total 1700 700 Balance 1700 700 Weight (lbs) 59.874 kg 59.874 kg Intake: Intake, IV Amount 1100 100 Piperacillin Sodium/ 100 100 Tazobact 3.375 gm In Sodium Chloride 0.9% 50 ml @ 100 mls/hr IV Q6H [facility] Rx#:[id number] Sodium Chloride 0.9% 1, 1000 000 ml @ 75 mls/hr IV . [id number] [facility] Rx#:[id number] Oral 0 Tube Feeding 600 600 Other: # Voids 3 3 # Bowel Movements 0 Active Medications: Current Medications Acetaminophen (Tylenol) 650 mg PO Q6H PRN PRN Reason: Mild Pain/Headache/T above 101 Stop: 10/01/17 19:00 Last Admin: 08/05/17 04:46 Dose: 650 mg Albuterol/Ipratropium (Duoneb Neb) 3 ml HHN [id number] [facility] Stop: 10/02/17 06:59 Last Admin: 08/06/17 07:20 Dose: 3 ml Carvedilol (Coreg) 6.25 mg PO BID [facility] Stop: 10/03/17 13:44 Last Admin: 08/06/17 09:30 Dose: 6.25 mg Piperacillin Sod/Tazobactam (Sod 3.375 gm/ Sodium Chloride) 50 mls @ 100 mls/ hr IV Q6H [facility] Stop: 10/01/17 20:59 Last Admin: 08/06/17 09:30 Dose: 100 mls/hr Sodium Chloride (Nacl 0.9%) 1,000 mls @ 75 mls/hr IV .[id number] [facility] Stop: 10/02/17 12:14 Last Admin: 08/05/17 22:00 Dose: 75 mls/hr Ondansetron HCl (Zofran) 4 mg IVP Q6H PRN PRN Reason: Nausea / Vomiting Stop: 10/01/17 19:00 Sodium Chloride (Saline Flush) 10 ml IV QSHIFT [facility] Stop: 10/01/17 19:59 Last Admin: 08/06/17 09:32 Dose: 10 ml General: Alert, Cooperative, No acute distress HEENT: PERRLA Neck: Supple Cardiovascular: Regular rate, Normal S1, Normal S2 Lungs: Clear to auscultation Abdomen: Bowel sounds, Soft, Other (G-tube noted.) Extremities: Other (No edema, cyanosis, clubbing.) Neurological: Other (Alert awake and following commands.) Assessment/Plan - Assessment Assessment: Hyponatremia resolved. Altered mental status resolved. Metabolic encephalopathy resolved. Alcoholism. History of throat cancer. Status post gastrostomy tube placement for dysphagia. Hypertension. DJD. Psyc disorder. - Plan Plan: Patient does look clinically stable at this time, once patient is seen by industrial machine system technician and his G-tube is changed patient can go to [facility] for psychiatry treatment. Patient has been advised at this time to continue feeding along with other medication as patient is receiving. Care plan reviewed with the assigned nurse as well. Continue general nursing care along with the symptoms management and medication management.
--- NOTE | 2017-08-06 12:53 | GI Progress Note ---
Subjective - Review of Systems Subjective: DENIES CONFUSION Objective - Results Result Diagrams: 08/06/17 06:08 08/06/17 06:08 Recent Labs: Laboratory Last Values WBC 6.9 Th/cmm (4.8-10.8) 08/06/17 06:08 RBC 3.81 Mil/cmm (3.80-5.80) 08/06/17 06:08 Hgb 12.6 gm/dL (12-16) 08/06/17 06:08 Hct 37.2 % (41.0-60) L 08/06/17 06:08 MCV 97.6 fl (80-99) 08/06/17 06:08 MCH 33.1 pg (27.0-31.0) H 08/06/17 06:08 MCHC Differential 34.0 pg (28.0-36.0) 08/06/17 06:08 RDW 13.6 % (11.5-20.0) 08/06/17 06:08 Plt Count 365 Th/cmm (150-400) 08/06/17 06:08 MPV 6.9 fl 08/06/17 06:08 Neutrophils % 51.3 % (40.0-80.0) 08/06/17 06:08 Band Neutrophils % 3 % (0-10) 08/02/17 15:43 Lymphocytes % 12.0 % (20.0-50.0) L 08/06/17 06:08 Monocytes % 11.6 % (2.0-10.0) H 08/06/17 06:08 Eosinophils % 23.9 % (0.0-5.0) H 08/06/17 06:08 Basophils % 1.2 % (0.0-2.0) 08/06/17 06:08 Neutrophils (Manual) 80 % (40-80) 08/02/17 15:43 Lymphocytes 9 % (20-50) L 08/02/17 15:43 Monocytes 4 % (2-10) 08/02/17 15:43 Eosinophils 4 % (0-5) 08/02/17 15:43 Basophils 0 % (0-3) 08/02/17 15:43 Specimen Source Arterial 08/02/17 09:33 Sample Site RB 08/02/17 09:33 pH 7.49 (7.35-7.45) H 08/02/17 09:33 pCO2 41.0 mmHg (35.0-45.0) 08/02/17 09:33 pO2 53.0 mmHg (80.0-100.0) L 08/02/17 09:33 HCO3 30.4 mEq/L (20.0-26.0) H 08/02/17 09:33 Base Excess 7.2 mEq/L (-3.0-3.0) H 08/02/17 09:33 O2 Saturation 90.0 % (92.0-100.0) L 08/02/17 09:33 Bladimir Test NA 08/02/17 09:33 Vent Rate NA 08/02/17 09:33 Inspired O2 21 08/02/17 09:33 Tidal Volume NA 08/02/17 09:33 PEEP NA 08/02/17 09:33 Pressure (ins/psv/peep) NA 08/02/17 09:33 Critical Value LZHANG 08/02/17 09:33 Sodium 131 mEq/L (136-145) L 08/06/17 06:08 Potassium 3.7 mEq/L (3.5-5.1) 08/06/17 06:08 Chloride 96 mEq/L (98-107) L 08/06/17 06:08 Carbon Dioxide 30.0 mEq/L (21.0-31.0) 08/06/17 06:08 Anion Gap 8.7 (7.0-16.0) 08/06/17 06:08 BUN 10 mg/dL (7-25) 08/06/17 06:08 Creatinine 0.9 mg/dL (0.7-1.3) 08/06/17 06:08 Est GFR ( Amer) TNP 08/06/17 06:08 Est GFR (Non-Af Amer) TNP 08/06/17 06:08 BUN/Creatinine Ratio 11.1 08/06/17 06:08 Glucose 120 mg/dL (70-105) H 08/06/17 06:08 Plasma/Ser Osmolality 255 mOsmol/kg (280-301) L 08/02/17 15:43 Uric Acid 5.3 mg/dL (4.4-7.6) 08/02/17 15:43 Calcium 9.5 mg/dL (8.6-10.3) 08/06/17 06:08 Magnesium 1.9 mg/dL (1.9-2.7) 08/04/17 06:42 Total Bilirubin 1.3 mg/dL (0.3-1.0) H 08/03/17 06:57 AST 18 U/L (13-39) 08/03/17 06:57 ALT 7 U/L (7-52) 08/03/17 06:57 Alkaline Phosphatase 78 U/L (34-104) 08/03/17 06:57 Ammonia 48 umol/L (16-53) 08/03/17 03:10 Total Protein 6.5 gm/dL (6.0-8.3) 08/03/17 06:57 Albumin 3.4 gm/dL (4.2-5.5) L 08/03/17 06:57 Globulin 3.1 gm/dL 08/03/17 06:57 Albumin/Globulin Ratio 1.1 (1.0-1.8) 08/03/17 06:57 TSH 5.34 uIU/ml (0.34-5.60) 08/02/17 15:43 Urine Source RANDOM 08/02/17 15:00 Urine Color YELLOW 08/02/17 15:00 Urine Clarity CLEAR (CLEAR) 08/02/17 15:00 Urine pH 6.5 (4.6 - 8.0) 08/02/17 15:00 Ur Specific [place] <= 1.005 (1.005-1.030) 08/02/17 15:00 Urine Protein NEGATIVE mg/dL (NEGATIVE) 08/02/17 15:00 Urine Glucose (UA) NEGATIVE mg/dL (NEGATIVE) 08/02/17 15:00 Urine Ketones NEGATIVE mg/dL (NEGATIVE) 08/02/17 15:00 Urine Blood TRACE (NEGATIVE) 08/02/17 15:00 Urine Nitrate NEGATIVE (NEGATIVE) 08/02/17 15:00 Urine Bilirubin NEGATIVE (NEGATIVE) 08/02/17 15:00 Urine Urobilinogen 0.2 E.U./dL (0.2 - 1.0) 08/02/17 15:00 Ur Leukocyte Esterase NEGATIVE (NEGATIVE) 08/02/17 15:00 Urine RBC 0-2 /hpf (0-5) H 08/02/17 15:00 Urine WBC 0-2 /hpf (0-5) 08/02/17 15:00 Ur Epithelial Cells NONE SEEN /lpf (FEW) 08/02/17 15:00 Urine Bacteria NONE SEEN /hpf (NONE SEEN) 08/02/17 15:00 - Physical Exam Vitals and I&O: Vital Signs Temp 98.9 F 08/06/17 08:00 Pulse 95 08/06/17 11:54 Resp 20 08/06/17 08:00 BP 142/73 08/06/17 11:54 Pulse Ox 99 08/06/17 08:00 Intake & Output 08/05/17 08/06/17 08/06/17 18:59 06:59 18:59 Intake Total 1700 700 Balance 1700 700 Weight (lbs) 59.874 kg 59.874 kg 62.097 kg Intake: Intake, IV Amount 1100 100 Piperacillin Sodium/ 100 100 Tazobact 3.375 gm In Sodium Chloride 0.9% 50 ml @ 100 mls/hr IV Q6H [facility] Rx#:[id number] Sodium Chloride 0.9% 1, 1000 000 ml @ 75 mls/hr IV . [id number] [facility] Rx#:[id number] Oral 0 Tube Feeding 600 600 Other: # Voids 3 3 # Bowel Movements 0 Active Medications: Current Medications Acetaminophen (Tylenol) 650 mg PO Q6H PRN PRN Reason: Mild Pain/Headache/T above 101 Stop: 10/01/17 19:00 Last Admin: 08/05/17 04:46 Dose: 650 mg Albuterol/Ipratropium (Duoneb Neb) 3 ml HHN [id number] [facility] Stop: 10/02/17 06:59 Last Admin: 08/06/17 12:48 Dose: 3 ml Carvedilol (Coreg) 6.25 mg PO BID [facility] Stop: 10/03/17 13:44 Last Admin: 08/06/17 09:30 Dose: 6.25 mg Piperacillin Sod/Tazobactam (Sod 3.375 gm/ Sodium Chloride) 50 mls @ 100 mls/ hr IV Q6H [facility] Stop: 10/01/17 20:59 Last Admin: 08/06/17 09:30 Dose: 100 mls/hr Sodium Chloride (Nacl 0.9%) 1,000 mls @ 75 mls/hr IV .[id number] [facility] Stop: 10/02/17 12:14 Last Admin: 08/05/17 22:00 Dose: 75 mls/hr Ondansetron HCl (Zofran) 4 mg IVP Q6H PRN PRN Reason: Nausea / Vomiting Stop: 10/01/17 19:00 Sodium Chloride (Saline Flush) 10 ml IV QSHIFT [facility] Stop: 10/01/17 19:59 Last Admin: 08/06/17 09:32 Dose: 10 ml General: Cooperative HEENT: PERRLA Neck: Supple Cardiovascular: Regular rate, Normal S1, Normal S2 Lungs: Clear to auscultation Abdomen: Bowel sounds Assessment/Plan - Assessment Assessment: 72 YO WITH ALOC NOW RESOLVED AMMONIA IS NORMAL 1.CONT SUPP CARE 2.FOLLOW LFTS OUTPATIENT TO SEE IF THERE IS UNDERLYING LIVER DISEASE AND WORK UP ACCORDINGLY 3.AVOID ETOH AND JOIN AA 4.F/U PCP 5.WILL SEE NEEDED; CALL IF QUESTIONS
[2017-08-06] MEDS: Sodium Chloride 0.9% 1,000 ML IV SCH (14:00)
--- NOTE | 2017-08-06 18:16 | General Progress Note ---
Subjective - Review of Systems Service Date: 08/06/17 Subjective: pt seen and examined Objective - Results Result Diagrams: 08/06/17 06:08 08/06/17 06:08 Recent Labs: Laboratory Last Values WBC 6.9 Th/cmm (4.8-10.8) 08/06/17 06:08 RBC 3.81 Mil/cmm (3.80-5.80) 08/06/17 06:08 Hgb 12.6 gm/dL (12-16) 08/06/17 06:08 Hct 37.2 % (41.0-60) L 08/06/17 06:08 MCV 97.6 fl (80-99) 08/06/17 06:08 MCH 33.1 pg (27.0-31.0) H 08/06/17 06:08 MCHC Differential 34.0 pg (28.0-36.0) 08/06/17 06:08 RDW 13.6 % (11.5-20.0) 08/06/17 06:08 Plt Count 365 Th/cmm (150-400) 08/06/17 06:08 MPV 6.9 fl 08/06/17 06:08 Neutrophils % 51.3 % (40.0-80.0) 08/06/17 06:08 Band Neutrophils % 3 % (0-10) 08/02/17 15:43 Lymphocytes % 12.0 % (20.0-50.0) L 08/06/17 06:08 Monocytes % 11.6 % (2.0-10.0) H 08/06/17 06:08 Eosinophils % 23.9 % (0.0-5.0) H 08/06/17 06:08 Basophils % 1.2 % (0.0-2.0) 08/06/17 06:08 Neutrophils (Manual) 80 % (40-80) 08/02/17 15:43 Lymphocytes 9 % (20-50) L 08/02/17 15:43 Monocytes 4 % (2-10) 08/02/17 15:43 Eosinophils 4 % (0-5) 08/02/17 15:43 Basophils 0 % (0-3) 08/02/17 15:43 Specimen Source Arterial 08/02/17 09:33 Sample Site RB 08/02/17 09:33 pH 7.49 (7.35-7.45) H 08/02/17 09:33 pCO2 41.0 mmHg (35.0-45.0) 08/02/17 09:33 pO2 53.0 mmHg (80.0-100.0) L 08/02/17 09:33 HCO3 30.4 mEq/L (20.0-26.0) H 08/02/17 09:33 Base Excess 7.2 mEq/L (-3.0-3.0) H 08/02/17 09:33 O2 Saturation 90.0 % (92.0-100.0) L 08/02/17 09:33 Bladimir Test NA 08/02/17 09:33 Vent Rate NA 08/02/17 09:33 Inspired O2 21 08/02/17 09:33 Tidal Volume NA 08/02/17 09:33 PEEP NA 08/02/17 09:33 Pressure (ins/psv/peep) NA 08/02/17 09:33 Critical Value LZHANG 08/02/17 09:33 Sodium 131 mEq/L (136-145) L 08/06/17 06:08 Potassium 3.7 mEq/L (3.5-5.1) 08/06/17 06:08 Chloride 96 mEq/L (98-107) L 08/06/17 06:08 Carbon Dioxide 30.0 mEq/L (21.0-31.0) 08/06/17 06:08 Anion Gap 8.7 (7.0-16.0) 08/06/17 06:08 BUN 10 mg/dL (7-25) 08/06/17 06:08 Creatinine 0.9 mg/dL (0.7-1.3) 08/06/17 06:08 Est GFR ( Amer) TNP 08/06/17 06:08 Est GFR (Non-Af Amer) TNP 08/06/17 06:08 BUN/Creatinine Ratio 11.1 08/06/17 06:08 Glucose 120 mg/dL (70-105) H 08/06/17 06:08 Plasma/Ser Osmolality 255 mOsmol/kg (280-301) L 08/02/17 15:43 Uric Acid 5.3 mg/dL (4.4-7.6) 08/02/17 15:43 Calcium 9.5 mg/dL (8.6-10.3) 08/06/17 06:08 Magnesium 1.9 mg/dL (1.9-2.7) 08/04/17 06:42 Total Bilirubin 1.3 mg/dL (0.3-1.0) H 08/03/17 06:57 AST 18 U/L (13-39) 08/03/17 06:57 ALT 7 U/L (7-52) 08/03/17 06:57 Alkaline Phosphatase 78 U/L (34-104) 08/03/17 06:57 Ammonia 48 umol/L (16-53) 08/03/17 03:10 Total Protein 6.5 gm/dL (6.0-8.3) 08/03/17 06:57 Albumin 3.4 gm/dL (4.2-5.5) L 08/03/17 06:57 Globulin 3.1 gm/dL 08/03/17 06:57 Albumin/Globulin Ratio 1.1 (1.0-1.8) 08/03/17 06:57 TSH 5.34 uIU/ml (0.34-5.60) 08/02/17 15:43 Urine Source RANDOM 08/02/17 15:00 Urine Color YELLOW 08/02/17 15:00 Urine Clarity CLEAR (CLEAR) 08/02/17 15:00 Urine pH 6.5 (4.6 - 8.0) 08/02/17 15:00 Ur Specific [place] <= 1.005 (1.005-1.030) 08/02/17 15:00 Urine Protein NEGATIVE mg/dL (NEGATIVE) 08/02/17 15:00 Urine Glucose (UA) NEGATIVE mg/dL (NEGATIVE) 08/02/17 15:00 Urine Ketones NEGATIVE mg/dL (NEGATIVE) 08/02/17 15:00 Urine Blood TRACE (NEGATIVE) 08/02/17 15:00 Urine Nitrate NEGATIVE (NEGATIVE) 08/02/17 15:00 Urine Bilirubin NEGATIVE (NEGATIVE) 08/02/17 15:00 Urine Urobilinogen 0.2 E.U./dL (0.2 - 1.0) 08/02/17 15:00 Ur Leukocyte Esterase NEGATIVE (NEGATIVE) 08/02/17 15:00 Urine RBC 0-2 /hpf (0-5) H 08/02/17 15:00 Urine WBC 0-2 /hpf (0-5) 08/02/17 15:00 Ur Epithelial Cells NONE SEEN /lpf (FEW) 08/02/17 15:00 Urine Bacteria NONE SEEN /hpf (NONE SEEN) 08/02/17 15:00 - Physical Exam Vitals and I&O: Vital Signs Temp 98.9 F 08/06/17 08:00 Pulse 64 08/06/17 17:18 Resp 18 08/06/17 12:51 BP 161/80 08/06/17 17:18 Pulse Ox 96 08/06/17 12:51 Intake & Output 08/05/17 08/06/17 08/06/17 18:59 06:59 18:59 Intake Total 2629 599 1812 Balance 7834 649 6172 Weight (lbs) 59.874 kg 59.874 kg 62.097 kg Intake: Intake, IV Amount 0804 813 6793 Piperacillin Sodium/ 100 100 50 Tazobact 3.375 gm In Sodium Chloride 0.9% 50 ml @ 100 mls/hr IV Q6H [facility] Rx#:[id number] Sodium Chloride 0.9% 1, 1000 1000 000 ml @ 75 mls/hr IV . [id number] [facility] Rx#:[id number] Oral 0 Tube Feeding 600 600 Other: # Voids 3 3 # Bowel Movements 0 Active Medications: Current Medications Acetaminophen (Tylenol) 650 mg PO Q6H PRN PRN Reason: Mild Pain/Headache/T above 101 Stop: 10/01/17 19:00 Last Admin: 08/05/17 04:46 Dose: 650 mg Albuterol/Ipratropium (Duoneb Neb) 3 ml HHN [id number] [facility] Stop: 10/02/17 06:59 Last Admin: 08/06/17 12:48 Dose: 3 ml Carvedilol (Coreg) 6.25 mg PO BID [facility] Stop: 10/03/17 13:44 Last Admin: 08/06/17 17:18 Dose: 6.25 mg Piperacillin Sod/Tazobactam (Sod 3.375 gm/ Sodium Chloride) 50 mls @ 100 mls/ hr IV Q6H [facility] Stop: 10/01/17 20:59 Last Admin: 08/06/17 17:17 Dose: 100 mls/hr Sodium Chloride (Nacl 0.9%) 1,000 mls @ 75 mls/hr IV .[id number] [facility] Stop: 10/02/17 12:14 Last Admin: 08/06/17 14:00 Dose: 75 mls/hr Ondansetron HCl (Zofran) 4 mg IVP Q6H PRN PRN Reason: Nausea / Vomiting Stop: 10/01/17 19:00 Sodium Chloride (Saline Flush) 10 ml IV QSHIFT [facility] Stop: 10/01/17 19:59 Last Admin: 08/06/17 09:32 Dose: 10 ml General: Cooperative HEENT: PERRLA Neck: Supple Cardiovascular: Regular rate, Normal S1, Normal S2 Lungs: Clear to auscultation Abdomen: Bowel sounds Assessment/Plan - Assessment Assessment: hyponatremia hypokalemia alcoholism - Plan Plan: continue IVF replace potassium
[2017-08-07] MEDS: Sodium Chloride 0.9% 1,000 ML IV SCH (07:19)
[2017-08-07] MEDS: Albuterol/Ipratropium Neb 3 ML AERS HHN SCH ×3 (07:31→19:08)
--- NOTE | 2017-08-07 09:30 | General Progress Note ---
Subjective - Review of Systems Subjective: Patient is seen and examined. RN reports little blood tinged upeer airway secretion. Patient denies any chest pain, shortness of breath, palpitation, dizziness, nausea, vomiting, headache. Objective - Results Result Diagrams: 08/06/17 06:08 08/06/17 06:08 Recent Labs: Laboratory Last Values WBC 6.9 Th/cmm (4.8-10.8) 08/06/17 06:08 RBC 3.81 Mil/cmm (3.80-5.80) 08/06/17 06:08 Hgb 12.6 gm/dL (12-16) 08/06/17 06:08 Hct 37.2 % (41.0-60) L 08/06/17 06:08 MCV 97.6 fl (80-99) 08/06/17 06:08 MCH 33.1 pg (27.0-31.0) H 08/06/17 06:08 MCHC Differential 34.0 pg (28.0-36.0) 08/06/17 06:08 RDW 13.6 % (11.5-20.0) 08/06/17 06:08 Plt Count 365 Th/cmm (150-400) 08/06/17 06:08 MPV 6.9 fl 08/06/17 06:08 Neutrophils % 51.3 % (40.0-80.0) 08/06/17 06:08 Band Neutrophils % 3 % (0-10) 08/02/17 15:43 Lymphocytes % 12.0 % (20.0-50.0) L 08/06/17 06:08 Monocytes % 11.6 % (2.0-10.0) H 08/06/17 06:08 Eosinophils % 23.9 % (0.0-5.0) H 08/06/17 06:08 Basophils % 1.2 % (0.0-2.0) 08/06/17 06:08 Neutrophils (Manual) 80 % (40-80) 08/02/17 15:43 Lymphocytes 9 % (20-50) L 08/02/17 15:43 Monocytes 4 % (2-10) 08/02/17 15:43 Eosinophils 4 % (0-5) 08/02/17 15:43 Basophils 0 % (0-3) 08/02/17 15:43 Specimen Source Arterial 08/02/17 09:33 Sample Site RB 08/02/17 09:33 pH 7.49 (7.35-7.45) H 08/02/17 09:33 pCO2 41.0 mmHg (35.0-45.0) 08/02/17 09:33 pO2 53.0 mmHg (80.0-100.0) L 08/02/17 09:33 HCO3 30.4 mEq/L (20.0-26.0) H 08/02/17 09:33 Base Excess 7.2 mEq/L (-3.0-3.0) H 08/02/17 09:33 O2 Saturation 90.0 % (92.0-100.0) L 08/02/17 09:33 Bladimir Test NA 08/02/17 09:33 Vent Rate NA 08/02/17 09:33 Inspired O2 21 08/02/17 09:33 Tidal Volume NA 08/02/17 09:33 PEEP NA 08/02/17 09:33 Pressure (ins/psv/peep) NA 08/02/17 09:33 Critical Value LZHANG 08/02/17 09:33 Sodium 131 mEq/L (136-145) L 08/06/17 06:08 Potassium 3.7 mEq/L (3.5-5.1) 08/06/17 06:08 Chloride 96 mEq/L (98-107) L 08/06/17 06:08 Carbon Dioxide 30.0 mEq/L (21.0-31.0) 08/06/17 06:08 Anion Gap 8.7 (7.0-16.0) 08/06/17 06:08 BUN 10 mg/dL (7-25) 08/06/17 06:08 Creatinine 0.9 mg/dL (0.7-1.3) 08/06/17 06:08 Est GFR ( Amer) TNP 08/06/17 06:08 Est GFR (Non-Af Amer) TNP 08/06/17 06:08 BUN/Creatinine Ratio 11.1 08/06/17 06:08 Glucose 120 mg/dL (70-105) H 08/06/17 06:08 Plasma/Ser Osmolality 255 mOsmol/kg (280-301) L 08/02/17 15:43 Uric Acid 5.3 mg/dL (4.4-7.6) 08/02/17 15:43 Calcium 9.5 mg/dL (8.6-10.3) 08/06/17 06:08 Magnesium 1.9 mg/dL (1.9-2.7) 08/04/17 06:42 Total Bilirubin 1.3 mg/dL (0.3-1.0) H 08/03/17 06:57 AST 18 U/L (13-39) 08/03/17 06:57 ALT 7 U/L (7-52) 08/03/17 06:57 Alkaline Phosphatase 78 U/L (34-104) 08/03/17 06:57 Ammonia 48 umol/L (16-53) 08/03/17 03:10 Total Protein 6.5 gm/dL (6.0-8.3) 08/03/17 06:57 Albumin 3.4 gm/dL (4.2-5.5) L 08/03/17 06:57 Globulin 3.1 gm/dL 08/03/17 06:57 Albumin/Globulin Ratio 1.1 (1.0-1.8) 08/03/17 06:57 TSH 5.34 uIU/ml (0.34-5.60) 08/02/17 15:43 Urine Source RANDOM 08/02/17 15:00 Urine Color YELLOW 08/02/17 15:00 Urine Clarity CLEAR (CLEAR) 08/02/17 15:00 Urine pH 6.5 (4.6 - 8.0) 08/02/17 15:00 Ur Specific [place] <= 1.005 (1.005-1.030) 08/02/17 15:00 Urine Protein NEGATIVE mg/dL (NEGATIVE) 08/02/17 15:00 Urine Glucose (UA) NEGATIVE mg/dL (NEGATIVE) 08/02/17 15:00 Urine Ketones NEGATIVE mg/dL (NEGATIVE) 08/02/17 15:00 Urine Blood TRACE (NEGATIVE) 08/02/17 15:00 Urine Nitrate NEGATIVE (NEGATIVE) 08/02/17 15:00 Urine Bilirubin NEGATIVE (NEGATIVE) 08/02/17 15:00 Urine Urobilinogen 0.2 E.U./dL (0.2 - 1.0) 08/02/17 15:00 Ur Leukocyte Esterase NEGATIVE (NEGATIVE) 08/02/17 15:00 Urine RBC 0-2 /hpf (0-5) H 08/02/17 15:00 Urine WBC 0-2 /hpf (0-5) 08/02/17 15:00 Ur Epithelial Cells NONE SEEN /lpf (FEW) 08/02/17 15:00 Urine Bacteria NONE SEEN /hpf (NONE SEEN) 08/02/17 15:00 - Physical Exam Vitals and I&O: Vital Signs Temp 98.1 F 08/07/17 05:00 Pulse 86 08/07/17 07:32 Resp 18 08/07/17 07:32 BP 152/81 08/07/17 05:00 Pulse Ox 93 08/07/17 07:32 Intake & Output 08/06/17 08/07/17 08/07/17 18:59 06:59 18:59 Intake Total 1100 1650 Balance 1100 1650 Weight (lbs) 62.097 kg 61.689 kg Intake: Intake, IV Amount 1100 1050 Piperacillin Sodium/ 100 50 Tazobact 3.375 gm In Sodium Chloride 0.9% 50 ml @ 100 mls/hr IV Q6H [facility] Rx#:[id number] Sodium Chloride 0.9% 1, 1000 1000 000 ml @ 75 mls/hr IV . [id number] [facility] Rx#:[id number] Oral 0 Tube Feeding 600 Other: # Voids 3 # Bowel Movements 0 Active Medications: Current Medications Acetaminophen (Tylenol) 650 mg PO Q6H PRN PRN Reason: Mild Pain/Headache/T above 101 Stop: 10/01/17 19:00 Last Admin: 08/05/17 04:46 Dose: 650 mg Albuterol/Ipratropium (Duoneb Neb) 3 ml HHN [id number] [facility] Stop: 10/02/17 06:59 Last Admin: 08/07/17 07:31 Dose: 3 ml Carvedilol (Coreg) 6.25 mg PO BID [facility] Stop: 10/03/17 13:44 Last Admin: 08/06/17 17:18 Dose: 6.25 mg Piperacillin Sod/Tazobactam (Sod 3.375 gm/ Sodium Chloride) 50 mls @ 100 mls/ hr IV Q6H [facility] Stop: 10/01/17 20:59 Last Admin: 08/07/17 03:44 Dose: 100 mls/hr Sodium Chloride (Nacl 0.9%) 1,000 mls @ 75 mls/hr IV .[id number] [facility] Stop: 10/02/17 12:14 Last Admin: 08/07/17 07:19 Dose: 75 mls/hr Ondansetron HCl (Zofran) 4 mg IVP Q6H PRN PRN Reason: Nausea / Vomiting Stop: 10/01/17 19:00 Sodium Chloride (Saline Flush) 10 ml IV QSHIFT [facility] Stop: 10/01/17 19:59 Last Admin: 08/06/17 21:26 Dose: 10 ml General: Alert, Cooperative, No acute distress HEENT: PERRLA Neck: Supple Cardiovascular: Regular rate, Normal S1, Normal S2 Lungs: Clear to auscultation Abdomen: Bowel sounds, Soft, Other (G-tube noted.) Extremities: Other (No edema, cyanosis, clubbing.) Neurological: Other (Alert awake and following commands.) Assessment/Plan - Assessment Assessment: Hyponatremia resolved. Altered mental status resolved. Metabolic encephalopathy resolved. Alcoholism. History of throat cancer. Status post gastrostomy tube placement for dysphagia. Hypertension. DJD. Psych disorder. - Plan Plan: Patient does look clinically stable at this time.Patient can go to [facility] for psychiatry treatment. Patient has been advised at this time to continue feeding along with other medication as patient is receiving. Care plan reviewed with the assigned nurse as well. Continue general nursing care along with the symptoms management and medication management. DC IV antibiotics.
[2017-08-07] MEDS: Pantoprazole 40 mg/Packet PO SCH (09:35)
--- NOTE | 2017-08-07 12:41 | General Progress Note ---
Subjective - Review of Systems Service Date: 08/07/17 Subjective: pt seen and examined Objective - Results Result Diagrams: 08/06/17 06:08 08/06/17 06:08 Recent Labs: Laboratory Last Values WBC 6.9 Th/cmm (4.8-10.8) 08/06/17 06:08 RBC 3.81 Mil/cmm (3.80-5.80) 08/06/17 06:08 Hgb 12.6 gm/dL (12-16) 08/06/17 06:08 Hct 37.2 % (41.0-60) L 08/06/17 06:08 MCV 97.6 fl (80-99) 08/06/17 06:08 MCH 33.1 pg (27.0-31.0) H 08/06/17 06:08 MCHC Differential 34.0 pg (28.0-36.0) 08/06/17 06:08 RDW 13.6 % (11.5-20.0) 08/06/17 06:08 Plt Count 365 Th/cmm (150-400) 08/06/17 06:08 MPV 6.9 fl 08/06/17 06:08 Neutrophils % 51.3 % (40.0-80.0) 08/06/17 06:08 Band Neutrophils % 3 % (0-10) 08/02/17 15:43 Lymphocytes % 12.0 % (20.0-50.0) L 08/06/17 06:08 Monocytes % 11.6 % (2.0-10.0) H 08/06/17 06:08 Eosinophils % 23.9 % (0.0-5.0) H 08/06/17 06:08 Basophils % 1.2 % (0.0-2.0) 08/06/17 06:08 Neutrophils (Manual) 80 % (40-80) 08/02/17 15:43 Lymphocytes 9 % (20-50) L 08/02/17 15:43 Monocytes 4 % (2-10) 08/02/17 15:43 Eosinophils 4 % (0-5) 08/02/17 15:43 Basophils 0 % (0-3) 08/02/17 15:43 Specimen Source Arterial 08/02/17 09:33 Sample Site RB 08/02/17 09:33 pH 7.49 (7.35-7.45) H 08/02/17 09:33 pCO2 41.0 mmHg (35.0-45.0) 08/02/17 09:33 pO2 53.0 mmHg (80.0-100.0) L 08/02/17 09:33 HCO3 30.4 mEq/L (20.0-26.0) H 08/02/17 09:33 Base Excess 7.2 mEq/L (-3.0-3.0) H 08/02/17 09:33 O2 Saturation 90.0 % (92.0-100.0) L 08/02/17 09:33 Bladimir Test NA 08/02/17 09:33 Vent Rate NA 08/02/17 09:33 Inspired O2 21 08/02/17 09:33 Tidal Volume NA 08/02/17 09:33 PEEP NA 08/02/17 09:33 Pressure (ins/psv/peep) NA 08/02/17 09:33 Critical Value LZHANG 08/02/17 09:33 Sodium 131 mEq/L (136-145) L 08/06/17 06:08 Potassium 3.7 mEq/L (3.5-5.1) 08/06/17 06:08 Chloride 96 mEq/L (98-107) L 08/06/17 06:08 Carbon Dioxide 30.0 mEq/L (21.0-31.0) 08/06/17 06:08 Anion Gap 8.7 (7.0-16.0) 08/06/17 06:08 BUN 10 mg/dL (7-25) 08/06/17 06:08 Creatinine 0.9 mg/dL (0.7-1.3) 08/06/17 06:08 Est GFR ( Amer) TNP 08/06/17 06:08 Est GFR (Non-Af Amer) TNP 08/06/17 06:08 BUN/Creatinine Ratio 11.1 08/06/17 06:08 Glucose 120 mg/dL (70-105) H 08/06/17 06:08 Plasma/Ser Osmolality 255 mOsmol/kg (280-301) L 08/02/17 15:43 Uric Acid 5.3 mg/dL (4.4-7.6) 08/02/17 15:43 Calcium 9.5 mg/dL (8.6-10.3) 08/06/17 06:08 Magnesium 1.9 mg/dL (1.9-2.7) 08/04/17 06:42 Total Bilirubin 1.3 mg/dL (0.3-1.0) H 08/03/17 06:57 AST 18 U/L (13-39) 08/03/17 06:57 ALT 7 U/L (7-52) 08/03/17 06:57 Alkaline Phosphatase 78 U/L (34-104) 08/03/17 06:57 Ammonia 48 umol/L (16-53) 08/03/17 03:10 Total Protein 6.5 gm/dL (6.0-8.3) 08/03/17 06:57 Albumin 3.4 gm/dL (4.2-5.5) L 08/03/17 06:57 Globulin 3.1 gm/dL 08/03/17 06:57 Albumin/Globulin Ratio 1.1 (1.0-1.8) 08/03/17 06:57 TSH 5.34 uIU/ml (0.34-5.60) 08/02/17 15:43 Urine Source RANDOM 08/02/17 15:00 Urine Color YELLOW 08/02/17 15:00 Urine Clarity CLEAR (CLEAR) 08/02/17 15:00 Urine pH 6.5 (4.6 - 8.0) 08/02/17 15:00 Ur Specific [place] <= 1.005 (1.005-1.030) 08/02/17 15:00 Urine Protein NEGATIVE mg/dL (NEGATIVE) 08/02/17 15:00 Urine Glucose (UA) NEGATIVE mg/dL (NEGATIVE) 08/02/17 15:00 Urine Ketones NEGATIVE mg/dL (NEGATIVE) 08/02/17 15:00 Urine Blood TRACE (NEGATIVE) 08/02/17 15:00 Urine Nitrate NEGATIVE (NEGATIVE) 08/02/17 15:00 Urine Bilirubin NEGATIVE (NEGATIVE) 08/02/17 15:00 Urine Urobilinogen 0.2 E.U./dL (0.2 - 1.0) 08/02/17 15:00 Ur Leukocyte Esterase NEGATIVE (NEGATIVE) 08/02/17 15:00 Urine RBC 0-2 /hpf (0-5) H 08/02/17 15:00 Urine WBC 0-2 /hpf (0-5) 08/02/17 15:00 Ur Epithelial Cells NONE SEEN /lpf (FEW) 08/02/17 15:00 Urine Bacteria NONE SEEN /hpf (NONE SEEN) 08/02/17 15:00 - Physical Exam Vitals and I&O: Vital Signs Temp 98.1 F 08/07/17 05:00 Pulse 67 08/07/17 09:35 Resp 18 08/07/17 07:32 BP 176/94 08/07/17 09:35 Pulse Ox 93 08/07/17 07:32 Intake & Output 08/06/17 08/07/17 08/07/17 18:59 06:59 18:59 Intake Total 1100 1700 Balance 1100 1700 Weight (lbs) 62.097 kg 61.689 kg Intake: Intake, IV Amount 1100 1100 Piperacillin Sodium/ 100 100 Tazobact 3.375 gm In Sodium Chloride 0.9% 50 ml @ 100 mls/hr IV Q6H [facility] Rx#:[id number] Sodium Chloride 0.9% 1, 1000 1000 000 ml @ 75 mls/hr IV . [id number] [facility] Rx#:[id number] Oral 0 Tube Feeding 600 Other: # Voids 3 # Bowel Movements 0 Active Medications: Current Medications Acetaminophen (Tylenol) 650 mg PO Q6H PRN PRN Reason: Mild Pain/Headache/T above 101 Stop: 10/01/17 19:00 Last Admin: 08/05/17 04:46 Dose: 650 mg Albuterol/Ipratropium (Duoneb Neb) 3 ml HHN [id number] [facility] Stop: 10/02/17 06:59 Last Admin: 08/07/17 07:31 Dose: 3 ml Carvedilol (Coreg) 6.25 mg PO BID [facility] Stop: 10/03/17 13:44 Last Admin: 08/07/17 09:35 Dose: 6.25 mg Ondansetron HCl (Zofran) 4 mg IVP Q6H PRN PRN Reason: Nausea / Vomiting Stop: 10/01/17 19:00 Pantoprazole Sodium (Protonix) 40 mg PO DAILY [facility] Stop: 10/06/17 09:44 Last Admin: 08/07/17 09:35 Dose: 40 mg Sodium Chloride (Saline Flush) 10 ml IV QSHIFT [facility] Stop: 10/01/17 19:59 Last Admin: 08/07/17 09:36 Dose: 10 ml General: Alert, Cooperative, No acute distress HEENT: PERRLA Neck: Supple Cardiovascular: Regular rate, Normal S1, Normal S2 Lungs: Clear to auscultation Abdomen: Bowel sounds, Soft, Other (G-tube noted.) Extremities: Other (No edema, cyanosis, clubbing.) Neurological: Other (Alert awake and following commands.) Assessment/Plan - Assessment Assessment: hyponatremia hypokalemia alcoholism - Plan Plan: continue IVF replace potassium will sign off
[2017-08-07] MEDS ORDERED: Diatrizoate Meglumine/Diatri 30 mL Sol PO ONE ×2 (13:34)
--- NOTE | 2017-08-07 14:19 | Diagnostic Imaging Report ---
Upper GI with Gastrografin HISTORY: G-tube confirmation COMPARISON: None FINDINGS: Parts Chaser view demonstrates copious amount of stool with distal fecal impaction. Generalized gaseous loops of bowel are noted. Atherosclerosis is noted. Degenerative changes of the spine are noted. Partially visualized left femoral fracture fixation hardware is noted. The second image demonstrates contrast opacification of the stomach and small bowel loops. IMPRESSION: Intraluminal confirmation of patient's percutaneous gastric feeding tube. Copious amount of stool with distal fecal impaction.
--- NOTE | 2017-08-07 18:32 | Operative Report ---
DATE OF SURGERY: 08/07/2017 INPATIENT GASTROINTESTINAL PROCEDURE PROCEDURE: G-tube change. REFERRING PHYSICIAN: Dr. Kim. REASON FOR PROCEDURE: Malfunctioning G-tube. PREOPERATIVE DIAGNOSES: Malfunctioning G-tube, dysphagia. POSTOPERATIVE DIAGNOSES: Malfunctioning G-tube, dysphagia and a new 20-Israeli gastrostomy tube placed. DESCRIPTION OF PROCEDURE: The patient was placed on her back. Old G-tube was identified and pulled out through traction method. A new 20-Israeli gastrostomy tube was lubricated. The tip inserted through the gastrocutaneous fistula entering stomach lumen. Internal balloon was inflated with 15 mL of sterile saline. The outer flange was secured in position. Procedure was then completed. COMPLICATIONS: None. FINDINGS: New 20-Israeli gastrostomy tube placed. RECOMMENDATIONS: 1. KUB Gastrografin confirmed placement in the stomach. 2. If it is in stomach, may begin using it. 3. Check residual every 6 hours and hold if greater than 100 mL. Thank you for allowing me to participate. Please call me if any questions. JOB# [id number]
[2017-08-08] MEDS: Albuterol/Ipratropium Neb 3 ML AERS HHN SCH ×3 (08:01→18:55)
[2017-08-08] MEDS: Pantoprazole 40 mg/Packet PO SCH (09:21)
--- NOTE | 2017-08-08 10:29 | Progress Notes ---
DATE: SUBJECTIVE: Chart reviewed and the patient interviewed. Also discussed the patient's condition with the staff and reviewed records and labs. The patient is still confused, but not as agitated. The patient also is easier to redirect him. The patient also is cooperative in regard to treatment and his combative behavior seems to be less. Otherwise, the patient still needs to be monitored closely. ASSESSMENT: The patient is still confused and still having episodes of agitation. TREATMENT PLAN: Continue to monitor behavior closely and continue to follow up. [facility]# [id number]
--- NOTE | 2017-08-08 11:41 | General Progress Note ---
Subjective - Review of Systems Service Date: 08/08/17 Subjective: pt seen and examined Objective - Results Result Diagrams: 08/06/17 06:08 08/06/17 06:08 Recent Labs: Laboratory Last Values WBC 6.9 Th/cmm (4.8-10.8) 08/06/17 06:08 RBC 3.81 Mil/cmm (3.80-5.80) 08/06/17 06:08 Hgb 12.6 gm/dL (12-16) 08/06/17 06:08 Hct 37.2 % (41.0-60) L 08/06/17 06:08 MCV 97.6 fl (80-99) 08/06/17 06:08 MCH 33.1 pg (27.0-31.0) H 08/06/17 06:08 MCHC Differential 34.0 pg (28.0-36.0) 08/06/17 06:08 RDW 13.6 % (11.5-20.0) 08/06/17 06:08 Plt Count 365 Th/cmm (150-400) 08/06/17 06:08 MPV 6.9 fl 08/06/17 06:08 Neutrophils % 51.3 % (40.0-80.0) 08/06/17 06:08 Band Neutrophils % 3 % (0-10) 08/02/17 15:43 Lymphocytes % 12.0 % (20.0-50.0) L 08/06/17 06:08 Monocytes % 11.6 % (2.0-10.0) H 08/06/17 06:08 Eosinophils % 23.9 % (0.0-5.0) H 08/06/17 06:08 Basophils % 1.2 % (0.0-2.0) 08/06/17 06:08 Neutrophils (Manual) 80 % (40-80) 08/02/17 15:43 Lymphocytes 9 % (20-50) L 08/02/17 15:43 Monocytes 4 % (2-10) 08/02/17 15:43 Eosinophils 4 % (0-5) 08/02/17 15:43 Basophils 0 % (0-3) 08/02/17 15:43 Specimen Source Arterial 08/02/17 09:33 Sample Site RB 08/02/17 09:33 pH 7.49 (7.35-7.45) H 08/02/17 09:33 pCO2 41.0 mmHg (35.0-45.0) 08/02/17 09:33 pO2 53.0 mmHg (80.0-100.0) L 08/02/17 09:33 HCO3 30.4 mEq/L (20.0-26.0) H 08/02/17 09:33 Base Excess 7.2 mEq/L (-3.0-3.0) H 08/02/17 09:33 O2 Saturation 90.0 % (92.0-100.0) L 08/02/17 09:33 Bladimir Test NA 08/02/17 09:33 Vent Rate NA 08/02/17 09:33 Inspired O2 21 08/02/17 09:33 Tidal Volume NA 08/02/17 09:33 PEEP NA 08/02/17 09:33 Pressure (ins/psv/peep) NA 08/02/17 09:33 Critical Value LZHANG 08/02/17 09:33 Sodium 131 mEq/L (136-145) L 08/06/17 06:08 Potassium 3.7 mEq/L (3.5-5.1) 08/06/17 06:08 Chloride 96 mEq/L (98-107) L 08/06/17 06:08 Carbon Dioxide 30.0 mEq/L (21.0-31.0) 08/06/17 06:08 Anion Gap 8.7 (7.0-16.0) 08/06/17 06:08 BUN 10 mg/dL (7-25) 08/06/17 06:08 Creatinine 0.9 mg/dL (0.7-1.3) 08/06/17 06:08 Est GFR ( Amer) TNP 08/06/17 06:08 Est GFR (Non-Af Amer) TNP 08/06/17 06:08 BUN/Creatinine Ratio 11.1 08/06/17 06:08 Glucose 120 mg/dL (70-105) H 08/06/17 06:08 Plasma/Ser Osmolality 255 mOsmol/kg (280-301) L 08/02/17 15:43 Uric Acid 5.3 mg/dL (4.4-7.6) 08/02/17 15:43 Calcium 9.5 mg/dL (8.6-10.3) 08/06/17 06:08 Magnesium 1.9 mg/dL (1.9-2.7) 08/04/17 06:42 Total Bilirubin 1.3 mg/dL (0.3-1.0) H 08/03/17 06:57 AST 18 U/L (13-39) 08/03/17 06:57 ALT 7 U/L (7-52) 08/03/17 06:57 Alkaline Phosphatase 78 U/L (34-104) 08/03/17 06:57 Ammonia 48 umol/L (16-53) 08/03/17 03:10 Total Protein 6.5 gm/dL (6.0-8.3) 08/03/17 06:57 Albumin 3.4 gm/dL (4.2-5.5) L 08/03/17 06:57 Globulin 3.1 gm/dL 08/03/17 06:57 Albumin/Globulin Ratio 1.1 (1.0-1.8) 08/03/17 06:57 TSH 5.34 uIU/ml (0.34-5.60) 08/02/17 15:43 Urine Source RANDOM 08/02/17 15:00 Urine Color YELLOW 08/02/17 15:00 Urine Clarity CLEAR (CLEAR) 08/02/17 15:00 Urine pH 6.5 (4.6 - 8.0) 08/02/17 15:00 Ur Specific [place] <= 1.005 (1.005-1.030) 08/02/17 15:00 Urine Protein NEGATIVE mg/dL (NEGATIVE) 08/02/17 15:00 Urine Glucose (UA) NEGATIVE mg/dL (NEGATIVE) 08/02/17 15:00 Urine Ketones NEGATIVE mg/dL (NEGATIVE) 08/02/17 15:00 Urine Blood TRACE (NEGATIVE) 08/02/17 15:00 Urine Nitrate NEGATIVE (NEGATIVE) 08/02/17 15:00 Urine Bilirubin NEGATIVE (NEGATIVE) 08/02/17 15:00 Urine Urobilinogen 0.2 E.U./dL (0.2 - 1.0) 08/02/17 15:00 Ur Leukocyte Esterase NEGATIVE (NEGATIVE) 08/02/17 15:00 Urine RBC 0-2 /hpf (0-5) H 08/02/17 15:00 Urine WBC 0-2 /hpf (0-5) 08/02/17 15:00 Ur Epithelial Cells NONE SEEN /lpf (FEW) 08/02/17 15:00 Urine Bacteria NONE SEEN /hpf (NONE SEEN) 08/02/17 15:00 Urine Osmolality 475 mOsmol/kg 08/06/17 21:00 - Physical Exam Vitals and I&O: Vital Signs Temp 97.4 F 08/08/17 10:00 Pulse 68 08/08/17 10:00 Resp 17 08/08/17 10:00 BP 162/91 08/08/17 10:00 Pulse Ox 95 08/08/17 10:00 Intake & Output 08/07/17 08/08/17 08/08/17 18:59 06:59 18:59 Intake Total 750 550 Balance 750 550 Weight (lbs) 61.689 kg 62.142 kg Intake: Intake, IV Amount 50 Piperacillin Sodium/ 50 Tazobact 3.375 gm In Sodium Chloride 0.9% 50 ml @ 100 mls/hr IV Q6H [facility] Rx#:[id number] Tube Feeding 500 500 Other 250 Other: # Voids 2 2 # Bowel Movements 1 1 Active Medications: Current Medications Acetaminophen (Tylenol) 650 mg PO Q6H PRN PRN Reason: Mild Pain/Headache/T above 101 Stop: 10/01/17 19:00 Last Admin: 08/05/17 04:46 Dose: 650 mg Albuterol/Ipratropium (Duoneb Neb) 3 ml HHN [id number] [facility] Stop: 10/02/17 06:59 Last Admin: 08/08/17 08:01 Dose: 3 ml Carvedilol (Coreg) 12.5 mg PO BID [facility] Stop: 10/07/17 11:39 Ondansetron HCl (Zofran) 4 mg IVP Q6H PRN PRN Reason: Nausea / Vomiting Stop: 10/01/17 19:00 Pantoprazole Sodium (Protonix) 40 mg PO DAILY [facility] Stop: 10/06/17 09:44 Last Admin: 08/08/17 09:21 Dose: 40 mg Sodium Chloride (Saline Flush) 10 ml IV QSHIFT [facility] Stop: 10/01/17 19:59 Last Admin: 08/08/17 09:21 Dose: 10 ml General: Alert, Cooperative, No acute distress HEENT: PERRLA Neck: Supple Cardiovascular: Regular rate, Normal S1, Normal S2 Lungs: Clear to auscultation Abdomen: Bowel sounds, Soft, Other (G-tube noted.) Extremities: Other (No edema, cyanosis, clubbing.) Neurological: Other (Alert awake and following commands.) Assessment/Plan - Assessment Assessment: hyponatremia hypokalemia alcoholism - Plan Plan: continue IVF replace potassium bp not controlled will increase coerg Nutritional Asmnt/Malnutr-PDOC - Dietary Evaluation Malnutrition Findings (Please click <Entered> for more info): Nutritional Asmnt/Malnutrition Start: 08/07/17 14: 53 Text: Status: Complete Freq: Document 08/07/17 14:53 [email or web address] (Rec: 08/07/17 15:02 [id number] Nutritional Asmnt/Malnutrition Patient General Information Nutritional Screening Moderate Risk Diagnosis ALOC Pertinent Medical Hx/Surgical Hx throat cancer, dysphagia with g tube, DJD, psychotic disorder, alcholism use Subjective Information Pt seen lying in bed at time of visit. Verified TF running at 50ml/hr. Per RN, TF runs continuous. No residual noted per EMR. Current Diet Order/ Nutrition Support Fibersource HN 50ml/hr Pertinent Medications protonix Pertinent Labs 08/06 Na 131, K 3.7 (improved), Cl 96, BUN 10, Cr 0.9, GLucos 120 Nutritional Hx/Data Height 1.55 m Height (Calculated Centimeters) 154.9 Current Weight (lbs) 61.689 kg Weight (Calculated Kilograms) 61.7 Weight (Calculated Grams) 48349.6 [place] Body Weight 112 Body Mass Index (BMI) 25.7 Weight Status Overweight GI Symptoms GI Symptoms None Last BM 08/05 Difficult in: None Skin Integrity/Comment: skin tear multiple sites Estimated Nutritional Goals BEE in Kcals: Using Current wt Calories/Kcals/Kg 23-27 Kcals Calculated 1390-0363 Protein: Using Current wt Protein g/k-1.2 Protein Calculated 62-74 Nutritional Problem No current Nutrition Prob Problem N/A Intervention/Recommendation Comments 1. Continue with current TF regimen. It provides 1440kcal, 65g protein, 972ml free water , meeting 100% of nutritional needs 2. Monitor TF rate, tolerance, wt weekly, skin integrity and labs 3. F/U as moderate risk in 3-5 days, 08/10-08/12 Expected Outcomes/Goals Expected Outcomes/Goals 1. Pt to meet at least 75% of nutritional needs via nutrition support with tolerance 2. Wt stability, skin to remain intact, labs to approach WNL.
--- NOTE | 2017-08-08 16:34 | GI Progress Note ---
Subjective - Review of Systems Subjective: DENIES CONFUSION OR ABD PAIN ARJUN GT Objective - Results Result Diagrams: 08/06/17 06:08 08/06/17 06:08 Recent Labs: Laboratory Last Values WBC 6.9 Th/cmm (4.8-10.8) 08/06/17 06:08 RBC 3.81 Mil/cmm (3.80-5.80) 08/06/17 06:08 Hgb 12.6 gm/dL (12-16) 08/06/17 06:08 Hct 37.2 % (41.0-60) L 08/06/17 06:08 MCV 97.6 fl (80-99) 08/06/17 06:08 MCH 33.1 pg (27.0-31.0) H 08/06/17 06:08 MCHC Differential 34.0 pg (28.0-36.0) 08/06/17 06:08 RDW 13.6 % (11.5-20.0) 08/06/17 06:08 Plt Count 365 Th/cmm (150-400) 08/06/17 06:08 MPV 6.9 fl 08/06/17 06:08 Neutrophils % 51.3 % (40.0-80.0) 08/06/17 06:08 Band Neutrophils % 3 % (0-10) 08/02/17 15:43 Lymphocytes % 12.0 % (20.0-50.0) L 08/06/17 06:08 Monocytes % 11.6 % (2.0-10.0) H 08/06/17 06:08 Eosinophils % 23.9 % (0.0-5.0) H 08/06/17 06:08 Basophils % 1.2 % (0.0-2.0) 08/06/17 06:08 Neutrophils (Manual) 80 % (40-80) 08/02/17 15:43 Lymphocytes 9 % (20-50) L 08/02/17 15:43 Monocytes 4 % (2-10) 08/02/17 15:43 Eosinophils 4 % (0-5) 08/02/17 15:43 Basophils 0 % (0-3) 08/02/17 15:43 Specimen Source Arterial 08/02/17 09:33 Sample Site RB 08/02/17 09:33 pH 7.49 (7.35-7.45) H 08/02/17 09:33 pCO2 41.0 mmHg (35.0-45.0) 08/02/17 09:33 pO2 53.0 mmHg (80.0-100.0) L 08/02/17 09:33 HCO3 30.4 mEq/L (20.0-26.0) H 08/02/17 09:33 Base Excess 7.2 mEq/L (-3.0-3.0) H 08/02/17 09:33 O2 Saturation 90.0 % (92.0-100.0) L 08/02/17 09:33 Bladimir Test NA 08/02/17 09:33 Vent Rate NA 08/02/17 09:33 Inspired O2 21 08/02/17 09:33 Tidal Volume NA 08/02/17 09:33 PEEP NA 08/02/17 09:33 Pressure (ins/psv/peep) NA 08/02/17 09:33 Critical Value LZHANG 08/02/17 09:33 Sodium 131 mEq/L (136-145) L 08/06/17 06:08 Potassium 3.7 mEq/L (3.5-5.1) 08/06/17 06:08 Chloride 96 mEq/L (98-107) L 08/06/17 06:08 Carbon Dioxide 30.0 mEq/L (21.0-31.0) 08/06/17 06:08 Anion Gap 8.7 (7.0-16.0) 08/06/17 06:08 BUN 10 mg/dL (7-25) 08/06/17 06:08 Creatinine 0.9 mg/dL (0.7-1.3) 08/06/17 06:08 Est GFR ( Amer) TNP 08/06/17 06:08 Est GFR (Non-Af Amer) TNP 08/06/17 06:08 BUN/Creatinine Ratio 11.1 08/06/17 06:08 Glucose 120 mg/dL (70-105) H 08/06/17 06:08 Plasma/Ser Osmolality 255 mOsmol/kg (280-301) L 08/02/17 15:43 Uric Acid 5.3 mg/dL (4.4-7.6) 08/02/17 15:43 Calcium 9.5 mg/dL (8.6-10.3) 08/06/17 06:08 Magnesium 1.9 mg/dL (1.9-2.7) 08/04/17 06:42 Total Bilirubin 1.3 mg/dL (0.3-1.0) H 08/03/17 06:57 AST 18 U/L (13-39) 08/03/17 06:57 ALT 7 U/L (7-52) 08/03/17 06:57 Alkaline Phosphatase 78 U/L (34-104) 08/03/17 06:57 Ammonia 48 umol/L (16-53) 08/03/17 03:10 Total Protein 6.5 gm/dL (6.0-8.3) 08/03/17 06:57 Albumin 3.4 gm/dL (4.2-5.5) L 08/03/17 06:57 Globulin 3.1 gm/dL 08/03/17 06:57 Albumin/Globulin Ratio 1.1 (1.0-1.8) 08/03/17 06:57 TSH 5.34 uIU/ml (0.34-5.60) 08/02/17 15:43 Urine Source RANDOM 08/02/17 15:00 Urine Color YELLOW 08/02/17 15:00 Urine Clarity CLEAR (CLEAR) 08/02/17 15:00 Urine pH 6.5 (4.6 - 8.0) 08/02/17 15:00 Ur Specific [place] <= 1.005 (1.005-1.030) 08/02/17 15:00 Urine Protein NEGATIVE mg/dL (NEGATIVE) 08/02/17 15:00 Urine Glucose (UA) NEGATIVE mg/dL (NEGATIVE) 08/02/17 15:00 Urine Ketones NEGATIVE mg/dL (NEGATIVE) 08/02/17 15:00 Urine Blood TRACE (NEGATIVE) 08/02/17 15:00 Urine Nitrate NEGATIVE (NEGATIVE) 08/02/17 15:00 Urine Bilirubin NEGATIVE (NEGATIVE) 08/02/17 15:00 Urine Urobilinogen 0.2 E.U./dL (0.2 - 1.0) 08/02/17 15:00 Ur Leukocyte Esterase NEGATIVE (NEGATIVE) 08/02/17 15:00 Urine RBC 0-2 /hpf (0-5) H 08/02/17 15:00 Urine WBC 0-2 /hpf (0-5) 08/02/17 15:00 Ur Epithelial Cells NONE SEEN /lpf (FEW) 08/02/17 15:00 Urine Bacteria NONE SEEN /hpf (NONE SEEN) 08/02/17 15:00 Urine Osmolality 475 mOsmol/kg 08/06/17 21:00 - Physical Exam Vitals and I&O: Vital Signs Temp 97.4 F 08/08/17 10:00 Pulse 68 08/08/17 13:25 Resp 18 08/08/17 13:25 BP 162/91 08/08/17 10:00 Pulse Ox 95 08/08/17 13:25 Intake & Output 08/07/17 08/08/17 08/08/17 18:59 06:59 18:59 Intake Total 750 550 Balance 750 550 Weight (lbs) 61.689 kg 62.142 kg Intake: Intake, IV Amount 50 Piperacillin Sodium/ 50 Tazobact 3.375 gm In Sodium Chloride 0.9% 50 ml @ 100 mls/hr IV Q6H [facility] Rx#:[id number] Tube Feeding 500 500 Other 250 Other: # Voids 2 2 # Bowel Movements 1 1 Active Medications: Current Medications Acetaminophen (Tylenol) 650 mg PO Q6H PRN PRN Reason: Mild Pain/Headache/T above 101 Stop: 10/01/17 19:00 Last Admin: 08/05/17 04:46 Dose: 650 mg Albuterol/Ipratropium (Duoneb Neb) 3 ml HHN [id number] [facility] Stop: 10/02/17 06:59 Last Admin: 08/08/17 13:25 Dose: 3 ml Carvedilol (Coreg) 12.5 mg PO BID [facility] Stop: 10/07/17 11:39 Ondansetron HCl (Zofran) 4 mg IVP Q6H PRN PRN Reason: Nausea / Vomiting Stop: 10/01/17 19:00 Pantoprazole Sodium (Protonix) 40 mg PO DAILY [facility] Stop: 10/06/17 09:44 Last Admin: 08/08/17 09:21 Dose: 40 mg Sodium Chloride (Saline Flush) 10 ml IV QSHIFT [facility] Stop: 10/01/17 19:59 Last Admin: 08/08/17 09:21 Dose: 10 ml General: Alert, Cooperative, No acute distress HEENT: PERRLA Neck: Supple Cardiovascular: Regular rate, Normal S1, Normal S2 Lungs: Clear to auscultation Abdomen: Bowel sounds, Soft, Other (G-tube noted.) Extremities: Other (No edema, cyanosis, clubbing.) Neurological: Other (Alert awake and following commands.) - Procedures Procedures: Procedures Procedure Code Date CHANGE FEEDING DEVICE IN UP INTEST TRACT, [employer]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
--- NOTE | 2017-08-08 22:04 | General Progress Note ---
Subjective - Review of Systems Service Date: 08/08/17 Subjective: Patient seen and examined chart reviewed (Covering for Dr Kim) Patient doing better no reported concern Objective - Results Result Diagrams: 08/06/17 06:08 08/06/17 06:08 Recent Labs: Laboratory Last Values WBC 6.9 Th/cmm (4.8-10.8) 08/06/17 06:08 RBC 3.81 Mil/cmm (3.80-5.80) 08/06/17 06:08 Hgb 12.6 gm/dL (12-16) 08/06/17 06:08 Hct 37.2 % (41.0-60) L 08/06/17 06:08 MCV 97.6 fl (80-99) 08/06/17 06:08 MCH 33.1 pg (27.0-31.0) H 08/06/17 06:08 MCHC Differential 34.0 pg (28.0-36.0) 08/06/17 06:08 RDW 13.6 % (11.5-20.0) 08/06/17 06:08 Plt Count 365 Th/cmm (150-400) 08/06/17 06:08 MPV 6.9 fl 08/06/17 06:08 Neutrophils % 51.3 % (40.0-80.0) 08/06/17 06:08 Band Neutrophils % 3 % (0-10) 08/02/17 15:43 Lymphocytes % 12.0 % (20.0-50.0) L 08/06/17 06:08 Monocytes % 11.6 % (2.0-10.0) H 08/06/17 06:08 Eosinophils % 23.9 % (0.0-5.0) H 08/06/17 06:08 Basophils % 1.2 % (0.0-2.0) 08/06/17 06:08 Neutrophils (Manual) 80 % (40-80) 08/02/17 15:43 Lymphocytes 9 % (20-50) L 08/02/17 15:43 Monocytes 4 % (2-10) 08/02/17 15:43 Eosinophils 4 % (0-5) 08/02/17 15:43 Basophils 0 % (0-3) 08/02/17 15:43 Specimen Source Arterial 08/02/17 09:33 Sample Site RB 08/02/17 09:33 pH 7.49 (7.35-7.45) H 08/02/17 09:33 pCO2 41.0 mmHg (35.0-45.0) 08/02/17 09:33 pO2 53.0 mmHg (80.0-100.0) L 08/02/17 09:33 HCO3 30.4 mEq/L (20.0-26.0) H 08/02/17 09:33 Base Excess 7.2 mEq/L (-3.0-3.0) H 08/02/17 09:33 O2 Saturation 90.0 % (92.0-100.0) L 08/02/17 09:33 Bladimir Test NA 08/02/17 09:33 Vent Rate NA 08/02/17 09:33 Inspired O2 21 08/02/17 09:33 Tidal Volume NA 08/02/17 09:33 PEEP NA 08/02/17 09:33 Pressure (ins/psv/peep) NA 08/02/17 09:33 Critical Value LZHANG 08/02/17 09:33 Sodium 131 mEq/L (136-145) L 08/06/17 06:08 Potassium 3.7 mEq/L (3.5-5.1) 08/06/17 06:08 Chloride 96 mEq/L (98-107) L 08/06/17 06:08 Carbon Dioxide 30.0 mEq/L (21.0-31.0) 08/06/17 06:08 Anion Gap 8.7 (7.0-16.0) 08/06/17 06:08 BUN 10 mg/dL (7-25) 08/06/17 06:08 Creatinine 0.9 mg/dL (0.7-1.3) 08/06/17 06:08 Est GFR ( Amer) TNP 08/06/17 06:08 Est GFR (Non-Af Amer) TNP 08/06/17 06:08 BUN/Creatinine Ratio 11.1 08/06/17 06:08 Glucose 120 mg/dL (70-105) H 08/06/17 06:08 Plasma/Ser Osmolality 255 mOsmol/kg (280-301) L 08/02/17 15:43 Uric Acid 5.3 mg/dL (4.4-7.6) 08/02/17 15:43 Calcium 9.5 mg/dL (8.6-10.3) 08/06/17 06:08 Magnesium 1.9 mg/dL (1.9-2.7) 08/04/17 06:42 Total Bilirubin 1.3 mg/dL (0.3-1.0) H 08/03/17 06:57 AST 18 U/L (13-39) 08/03/17 06:57 ALT 7 U/L (7-52) 08/03/17 06:57 Alkaline Phosphatase 78 U/L (34-104) 08/03/17 06:57 Ammonia 48 umol/L (16-53) 08/03/17 03:10 Total Protein 6.5 gm/dL (6.0-8.3) 08/03/17 06:57 Albumin 3.4 gm/dL (4.2-5.5) L 08/03/17 06:57 Globulin 3.1 gm/dL 08/03/17 06:57 Albumin/Globulin Ratio 1.1 (1.0-1.8) 08/03/17 06:57 TSH 5.34 uIU/ml (0.34-5.60) 08/02/17 15:43 Urine Source RANDOM 08/02/17 15:00 Urine Color YELLOW 08/02/17 15:00 Urine Clarity CLEAR (CLEAR) 08/02/17 15:00 Urine pH 6.5 (4.6 - 8.0) 08/02/17 15:00 Ur Specific [place] <= 1.005 (1.005-1.030) 08/02/17 15:00 Urine Protein NEGATIVE mg/dL (NEGATIVE) 08/02/17 15:00 Urine Glucose (UA) NEGATIVE mg/dL (NEGATIVE) 08/02/17 15:00 Urine Ketones NEGATIVE mg/dL (NEGATIVE) 08/02/17 15:00 Urine Blood TRACE (NEGATIVE) 08/02/17 15:00 Urine Nitrate NEGATIVE (NEGATIVE) 08/02/17 15:00 Urine Bilirubin NEGATIVE (NEGATIVE) 08/02/17 15:00 Urine Urobilinogen 0.2 E.U./dL (0.2 - 1.0) 08/02/17 15:00 Ur Leukocyte Esterase NEGATIVE (NEGATIVE) 08/02/17 15:00 Urine RBC 0-2 /hpf (0-5) H 08/02/17 15:00 Urine WBC 0-2 /hpf (0-5) 08/02/17 15:00 Ur Epithelial Cells NONE SEEN /lpf (FEW) 08/02/17 15:00 Urine Bacteria NONE SEEN /hpf (NONE SEEN) 08/02/17 15:00 Urine Osmolality 475 mOsmol/kg 08/06/17 21:00 - Physical Exam Vitals and I&O: Vital Signs Temp 96 F 08/08/17 20:00 Pulse 60 08/08/17 20:00 Resp 18 08/08/17 20:00 BP 138/73 08/08/17 20:00 Pulse Ox 95 08/08/17 20:00 Intake & Output 08/08/17 08/08/17 08/09/17 06:59 18:59 06:59 Intake Total 550 800 Balance 550 800 Weight (lbs) 62.142 kg 62.142 kg Intake: Intake, IV Amount 50 Piperacillin Sodium/ 50 Tazobact 3.375 gm In Sodium Chloride 0.9% 50 ml @ 100 mls/hr IV Q6H [facility] Rx#:[id number] Tube Feeding 500 600 Other 200 Other: # Voids 2 2 # Bowel Movements 1 1 Active Medications: Current Medications Acetaminophen (Tylenol) 650 mg PO Q6H PRN PRN Reason: Mild Pain/Headache/T above 101 Stop: 10/01/17 19:00 Last Admin: 08/05/17 04:46 Dose: 650 mg Albuterol/Ipratropium (Duoneb Neb) 3 ml HHN [id number] [facility] Stop: 10/02/17 06:59 Last Admin: 08/08/17 18:55 Dose: 3 ml Carvedilol (Coreg) 12.5 mg PO BID [facility] Stop: 10/07/17 11:39 Last Admin: 08/08/17 17:56 Dose: 12.5 mg Ondansetron HCl (Zofran) 4 mg IVP Q6H PRN PRN Reason: Nausea / Vomiting Stop: 10/01/17 19:00 Pantoprazole Sodium (Protonix) 40 mg PO DAILY [facility] Stop: 10/06/17 09:44 Last Admin: 08/08/17 09:21 Dose: 40 mg Polyethylene Glycol (Miralax) 17 gm GT DAILY [facility] Stop: 10/08/17 08:59 Sodium Chloride (Saline Flush) 10 ml IV QSHIFT [facility] Stop: 10/01/17 19:59 Last Admin: 08/08/17 09:21 Dose: 10 ml General: No acute distress Neck: Supple Cardiovascular: Regular rate, Normal S1, Normal S2 Lungs: Clear to auscultation Abdomen: Soft, Other (G-tube noted.) Extremities: Other (No edema, cyanosis, clubbing.) Neurological: Other (Alert awake and following commands.) - Procedures Procedures: Procedures Procedure Code Date CHANGE FEEDING DEVICE IN UP INTEST TRACT, 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 [id number] 08/02/17 CHANGE GASTROSTOMY TUBE 64318 08/02/17 Assessment/Plan - Assessment Assessment: HTN Dysphagia G tube status Mental health disorder Constipation - Plan Plan: 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 stable 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 Verified TF running at 50ml/hr. Per RN, TF runs continuous. No residual noted per EMR. Current Diet Order/ Nutrition Support Fibersource HN 50ml/hr Pertinent Medications protonix Pertinent Labs 08/06 Na 131, K 3.7 (improved), Cl 96, BUN 10, Cr 0.9, GLucos 120 Nutritional Hx/Data Height 1.55 m Height (Calculated Centimeters) 154.9 Current Weight (lbs) 61.689 kg Weight (Calculated Kilograms) 61.7 Weight (Calculated Grams) 10128.6 [place] Body Weight 112 Body Mass Index (BMI) 25.7 Weight Status Overweight GI Symptoms GI Symptoms None Last BM 08/05 Difficult in: None Skin Integrity/Comment: skin tear multiple sites Estimated Nutritional Goals BEE in Kcals: Using Current wt Calories/Kcals/Kg 23-27 Kcals Calculated 1547-4179 Protein: Using Current wt Protein g/k-1.2 Protein Calculated 62-74 Nutritional Problem No current Nutrition Prob Problem N/A Intervention/Recommendation Comments 1. Continue with current TF regimen. It provides 1440kcal, 65g protein, 972ml free water , meeting 100% of nutritional needs 2. Monitor TF rate, tolerance, wt weekly, skin integrity and labs 3. F/U as moderate risk in 3-5 days, 08/10-08/12 Expected Outcomes/Goals Expected Outcomes/Goals 1. Pt to meet at least 75% of nutritional needs via nutrition support with tolerance 2. Wt stability, skin to remain intact, labs to approach WNL.
[2017-08-09] MEDS ORDERED: Albuterol/Ipratropium Neb 3 ML AERS HHN ONE (07:23)
[2017-08-09] MEDS: Albuterol/Ipratropium Neb 3 ML AERS HHN SCH ×4 (07:54→19:37)
[2017-08-09] MEDS: Pantoprazole 40 mg/Packet PO SCH (08:48)
[2017-08-09] MEDS: POLYETHYLENE GLYCOL 3350 17 GM PACK GT SCH (08:48)
--- NOTE | 2017-08-09 09:20 | GI Progress Note ---
Subjective - Review of Systems Service Date: 08/09/17 Subjective: No new events. G tube confirmed Objective - Results Result Diagrams: 08/06/17 06:08 08/06/17 06:08 Recent Labs: Laboratory Last Values WBC 6.9 Th/cmm (4.8-10.8) 08/06/17 06:08 RBC 3.81 Mil/cmm (3.80-5.80) 08/06/17 06:08 Hgb 12.6 gm/dL (12-16) 08/06/17 06:08 Hct 37.2 % (41.0-60) L 08/06/17 06:08 MCV 97.6 fl (80-99) 08/06/17 06:08 MCH 33.1 pg (27.0-31.0) H 08/06/17 06:08 MCHC Differential 34.0 pg (28.0-36.0) 08/06/17 06:08 RDW 13.6 % (11.5-20.0) 08/06/17 06:08 Plt Count 365 Th/cmm (150-400) 08/06/17 06:08 MPV 6.9 fl 08/06/17 06:08 Neutrophils % 51.3 % (40.0-80.0) 08/06/17 06:08 Band Neutrophils % 3 % (0-10) 08/02/17 15:43 Lymphocytes % 12.0 % (20.0-50.0) L 08/06/17 06:08 Monocytes % 11.6 % (2.0-10.0) H 08/06/17 06:08 Eosinophils % 23.9 % (0.0-5.0) H 08/06/17 06:08 Basophils % 1.2 % (0.0-2.0) 08/06/17 06:08 Neutrophils (Manual) 80 % (40-80) 08/02/17 15:43 Lymphocytes 9 % (20-50) L 08/02/17 15:43 Monocytes 4 % (2-10) 08/02/17 15:43 Eosinophils 4 % (0-5) 08/02/17 15:43 Basophils 0 % (0-3) 08/02/17 15:43 Specimen Source Arterial 08/02/17 09:33 Sample Site RB 08/02/17 09:33 pH 7.49 (7.35-7.45) H 08/02/17 09:33 pCO2 41.0 mmHg (35.0-45.0) 08/02/17 09:33 pO2 53.0 mmHg (80.0-100.0) L 08/02/17 09:33 HCO3 30.4 mEq/L (20.0-26.0) H 08/02/17 09:33 Base Excess 7.2 mEq/L (-3.0-3.0) H 08/02/17 09:33 O2 Saturation 90.0 % (92.0-100.0) L 08/02/17 09:33 Bladimir Test NA 08/02/17 09:33 Vent Rate NA 08/02/17 09:33 Inspired O2 21 08/02/17 09:33 Tidal Volume NA 08/02/17 09:33 PEEP NA 08/02/17 09:33 Pressure (ins/psv/peep) NA 08/02/17 09:33 Critical Value LZHANG 08/02/17 09:33 Sodium 131 mEq/L (136-145) L 08/06/17 06:08 Potassium 3.7 mEq/L (3.5-5.1) 08/06/17 06:08 Chloride 96 mEq/L (98-107) L 08/06/17 06:08 Carbon Dioxide 30.0 mEq/L (21.0-31.0) 08/06/17 06:08 Anion Gap 8.7 (7.0-16.0) 08/06/17 06:08 BUN 10 mg/dL (7-25) 08/06/17 06:08 Creatinine 0.9 mg/dL (0.7-1.3) 08/06/17 06:08 Est GFR ( Amer) TNP 08/06/17 06:08 Est GFR (Non-Af Amer) TNP 08/06/17 06:08 BUN/Creatinine Ratio 11.1 08/06/17 06:08 Glucose 120 mg/dL (70-105) H 08/06/17 06:08 Plasma/Ser Osmolality 255 mOsmol/kg (280-301) L 08/02/17 15:43 Uric Acid 5.3 mg/dL (4.4-7.6) 08/02/17 15:43 Calcium 9.5 mg/dL (8.6-10.3) 08/06/17 06:08 Magnesium 1.9 mg/dL (1.9-2.7) 08/04/17 06:42 Total Bilirubin 1.3 mg/dL (0.3-1.0) H 08/03/17 06:57 AST 18 U/L (13-39) 08/03/17 06:57 ALT 7 U/L (7-52) 08/03/17 06:57 Alkaline Phosphatase 78 U/L (34-104) 08/03/17 06:57 Ammonia 48 umol/L (16-53) 08/03/17 03:10 Total Protein 6.5 gm/dL (6.0-8.3) 08/03/17 06:57 Albumin 3.4 gm/dL (4.2-5.5) L 08/03/17 06:57 Globulin 3.1 gm/dL 08/03/17 06:57 Albumin/Globulin Ratio 1.1 (1.0-1.8) 08/03/17 06:57 TSH 5.34 uIU/ml (0.34-5.60) 08/02/17 15:43 Urine Source RANDOM 08/02/17 15:00 Urine Color YELLOW 08/02/17 15:00 Urine Clarity CLEAR (CLEAR) 08/02/17 15:00 Urine pH 6.5 (4.6 - 8.0) 08/02/17 15:00 Ur Specific [place] <= 1.005 (1.005-1.030) 08/02/17 15:00 Urine Protein NEGATIVE mg/dL (NEGATIVE) 08/02/17 15:00 Urine Glucose (UA) NEGATIVE mg/dL (NEGATIVE) 08/02/17 15:00 Urine Ketones NEGATIVE mg/dL (NEGATIVE) 08/02/17 15:00 Urine Blood TRACE (NEGATIVE) 08/02/17 15:00 Urine Nitrate NEGATIVE (NEGATIVE) 08/02/17 15:00 Urine Bilirubin NEGATIVE (NEGATIVE) 08/02/17 15:00 Urine Urobilinogen 0.2 E.U./dL (0.2 - 1.0) 08/02/17 15:00 Ur Leukocyte Esterase NEGATIVE (NEGATIVE) 08/02/17 15:00 Urine RBC 0-2 /hpf (0-5) H 08/02/17 15:00 Urine WBC 0-2 /hpf (0-5) 08/02/17 15:00 Ur Epithelial Cells NONE SEEN /lpf (FEW) 08/02/17 15:00 Urine Bacteria NONE SEEN /hpf (NONE SEEN) 08/02/17 15:00 Urine Osmolality 475 mOsmol/kg 08/06/17 21:00 - Physical Exam Vitals and I&O: Vital Signs Temp 97.9 F 08/09/17 06:04 Pulse 72 08/09/17 08:48 Resp 18 08/09/17 07:56 BP 161/81 08/09/17 08:48 Pulse Ox 95 08/09/17 07:56 Intake & Output 08/08/17 08/09/17 08/09/17 18:59 06:59 18:59 Intake Total 800 Output Total 800 Balance 800 -800 Weight (lbs) 62.142 kg 61.462 kg Intake: Tube Feeding 600 Other 200 Output: Urine 800 Other: # Voids 2 # Bowel Movements 1 1 Active Medications: Current Medications Acetaminophen (Tylenol) 650 mg PO Q6H PRN PRN Reason: Mild Pain/Headache/T above 101 Stop: 10/01/17 19:00 Last Admin: 08/05/17 04:46 Dose: 650 mg Albuterol/Ipratropium (Duoneb Neb) 3 ml HHN [id number] [facility] Stop: 10/02/17 06:59 Last Admin: 08/09/17 07:54 Dose: Not Given Carvedilol (Coreg) 12.5 mg PO BID [facility] Stop: 10/07/17 11:39 Last Admin: 08/09/17 08:48 Dose: 12.5 mg Ondansetron HCl (Zofran) 4 mg IVP Q6H PRN PRN Reason: Nausea / Vomiting Stop: 10/01/17 19:00 Pantoprazole Sodium (Protonix) 40 mg PO DAILY [facility] Stop: 10/06/17 09:44 Last Admin: 08/09/17 08:48 Dose: 40 mg Polyethylene Glycol (Miralax) 17 gm GT DAILY [facility] Stop: 10/08/17 08:59 Last Admin: 08/09/17 08:48 Dose: 17 gm Sodium Chloride (Saline Flush) 10 ml IV QSHIFT [facility] Stop: 10/01/17 19:59 Last Admin: 03/16/18 08:49 Dose: 10 ml General: No acute distress HEENT: PERRLA Neck: Supple Cardiovascular: Regular rate, Normal S1, Normal S2 Lungs: Clear to auscultation Abdomen: Soft, Other (G-tube noted.), no Tender, no Rebound, no Mass, no Guarding Extremities: Other (No edema, cyanosis, clubbing.) Neurological: Other (Alert awake and following commands.) - Procedures Procedures: Procedures Procedure Code Date CHANGE FEEDING DEVICE IN UP INTEST TRACT, 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 Miralax for constipation ordered Gi to see as needed, please call with any questions
--- NOTE | 2017-08-09 11:17 | Progress Notes ---
DATE: SUBJECTIVE: Chart reviewed and the patient interviewed. Also discussed the patient's condition with the staff and reviewed records and labs. The patient is calmer and he is less agitated. The patient also is easier to follow directions. The patient also has been cooperative with the staff and has not been combative. On the other hand, the patient still has periods of irritability, but less than before and it is much easier to redirect him. ASSESSMENT: The patient is calm and less agitated. TREATMENT PLAN: Continue monitoring his behavior and his condition closely and continue current treatment plans. JOB# [id number]
--- NOTE | 2017-08-09 15:39 | General Progress Note ---
Subjective - Review of Systems Service Date: 08/09/17 Subjective: pt seen and examined Objective - Results Result Diagrams: 08/06/17 06:08 08/06/17 06:08 Recent Labs: Laboratory Last Values WBC 6.9 Th/cmm (4.8-10.8) 08/06/17 06:08 RBC 3.81 Mil/cmm (3.80-5.80) 08/06/17 06:08 Hgb 12.6 gm/dL (12-16) 08/06/17 06:08 Hct 37.2 % (41.0-60) L 08/06/17 06:08 MCV 97.6 fl (80-99) 08/06/17 06:08 MCH 33.1 pg (27.0-31.0) H 08/06/17 06:08 MCHC Differential 34.0 pg (28.0-36.0) 08/06/17 06:08 RDW 13.6 % (11.5-20.0) 08/06/17 06:08 Plt Count 365 Th/cmm (150-400) 08/06/17 06:08 MPV 6.9 fl 08/06/17 06:08 Neutrophils % 51.3 % (40.0-80.0) 08/06/17 06:08 Band Neutrophils % 3 % (0-10) 08/02/17 15:43 Lymphocytes % 12.0 % (20.0-50.0) L 08/06/17 06:08 Monocytes % 11.6 % (2.0-10.0) H 08/06/17 06:08 Eosinophils % 23.9 % (0.0-5.0) H 08/06/17 06:08 Basophils % 1.2 % (0.0-2.0) 08/06/17 06:08 Neutrophils (Manual) 80 % (40-80) 08/02/17 15:43 Lymphocytes 9 % (20-50) L 08/02/17 15:43 Monocytes 4 % (2-10) 08/02/17 15:43 Eosinophils 4 % (0-5) 08/02/17 15:43 Basophils 0 % (0-3) 08/02/17 15:43 Specimen Source Arterial 08/02/17 09:33 Sample Site RB 08/02/17 09:33 pH 7.49 (7.35-7.45) H 08/02/17 09:33 pCO2 41.0 mmHg (35.0-45.0) 08/02/17 09:33 pO2 53.0 mmHg (80.0-100.0) L 08/02/17 09:33 HCO3 30.4 mEq/L (20.0-26.0) H 08/02/17 09:33 Base Excess 7.2 mEq/L (-3.0-3.0) H 08/02/17 09:33 O2 Saturation 90.0 % (92.0-100.0) L 08/02/17 09:33 Bladimir Test NA 08/02/17 09:33 Vent Rate NA 08/02/17 09:33 Inspired O2 21 08/02/17 09:33 Tidal Volume NA 08/02/17 09:33 PEEP NA 08/02/17 09:33 Pressure (ins/psv/peep) NA 08/02/17 09:33 Critical Value LZHANG 08/02/17 09:33 Sodium 131 mEq/L (136-145) L 08/06/17 06:08 Potassium 3.7 mEq/L (3.5-5.1) 08/06/17 06:08 Chloride 96 mEq/L (98-107) L 08/06/17 06:08 Carbon Dioxide 30.0 mEq/L (21.0-31.0) 08/06/17 06:08 Anion Gap 8.7 (7.0-16.0) 08/06/17 06:08 BUN 10 mg/dL (7-25) 08/06/17 06:08 Creatinine 0.9 mg/dL (0.7-1.3) 08/06/17 06:08 Est GFR ( Amer) TNP 08/06/17 06:08 Est GFR (Non-Af Amer) TNP 08/06/17 06:08 BUN/Creatinine Ratio 11.1 08/06/17 06:08 Glucose 120 mg/dL (70-105) H 08/06/17 06:08 Plasma/Ser Osmolality 255 mOsmol/kg (280-301) L 08/02/17 15:43 Uric Acid 5.3 mg/dL (4.4-7.6) 08/02/17 15:43 Calcium 9.5 mg/dL (8.6-10.3) 08/06/17 06:08 Magnesium 1.9 mg/dL (1.9-2.7) 08/04/17 06:42 Total Bilirubin 1.3 mg/dL (0.3-1.0) H 08/03/17 06:57 AST 18 U/L (13-39) 08/03/17 06:57 ALT 7 U/L (7-52) 08/03/17 06:57 Alkaline Phosphatase 78 U/L (34-104) 08/03/17 06:57 Ammonia 48 umol/L (16-53) 08/03/17 03:10 Total Protein 6.5 gm/dL (6.0-8.3) 08/03/17 06:57 Albumin 3.4 gm/dL (4.2-5.5) L 08/03/17 06:57 Globulin 3.1 gm/dL 08/03/17 06:57 Albumin/Globulin Ratio 1.1 (1.0-1.8) 08/03/17 06:57 TSH 5.34 uIU/ml (0.34-5.60) 08/02/17 15:43 Urine Source RANDOM 08/02/17 15:00 Urine Color YELLOW 08/02/17 15:00 Urine Clarity CLEAR (CLEAR) 08/02/17 15:00 Urine pH 6.5 (4.6 - 8.0) 08/02/17 15:00 Ur Specific [place] <= 1.005 (1.005-1.030) 08/02/17 15:00 Urine Protein NEGATIVE mg/dL (NEGATIVE) 08/02/17 15:00 Urine Glucose (UA) NEGATIVE mg/dL (NEGATIVE) 08/02/17 15:00 Urine Ketones NEGATIVE mg/dL (NEGATIVE) 08/02/17 15:00 Urine Blood TRACE (NEGATIVE) 08/02/17 15:00 Urine Nitrate NEGATIVE (NEGATIVE) 08/02/17 15:00 Urine Bilirubin NEGATIVE (NEGATIVE) 08/02/17 15:00 Urine Urobilinogen 0.2 E.U./dL (0.2 - 1.0) 08/02/17 15:00 Ur Leukocyte Esterase NEGATIVE (NEGATIVE) 08/02/17 15:00 Urine RBC 0-2 /hpf (0-5) H 08/02/17 15:00 Urine WBC 0-2 /hpf (0-5) 08/02/17 15:00 Ur Epithelial Cells NONE SEEN /lpf (FEW) 08/02/17 15:00 Urine Bacteria NONE SEEN /hpf (NONE SEEN) 08/02/17 15:00 Urine Osmolality 475 mOsmol/kg 08/06/17 21:00 - Physical Exam Vitals and I&O: Vital Signs Temp 97.7 F 08/09/17 10:00 Pulse 67 08/09/17 12:47 Resp 18 08/09/17 12:47 BP 161/81 08/09/17 10:00 Pulse Ox 95 08/09/17 12:47 Intake & Output 08/08/17 08/09/17 08/09/17 18:59 06:59 18:59 Intake Total 800 Output Total 800 Balance 800 -800 Weight (lbs) 62.142 kg 61.462 kg Intake: Tube Feeding 600 Other 200 Output: Urine 800 Other: # Voids 2 # Bowel Movements 1 1 Active Medications: Current Medications Acetaminophen (Tylenol) 650 mg PO Q6H PRN PRN Reason: Mild Pain/Headache/T above 101 Stop: 10/01/17 19:00 Last Admin: 08/05/17 04:46 Dose: 650 mg Albuterol/Ipratropium (Duoneb Neb) 3 ml HHN [id number] ON [facility] OF [facility] Stop: 10/02/17 06:59 Last Admin: 08/09/17 12:47 Dose: Not Given Carvedilol (Coreg) 12.5 mg PO BID ON [facility] OF [facility] Stop: 10/07/17 11:39 Last Admin: 08/09/17 08:48 Dose: 12.5 mg Ondansetron HCl (Zofran) 4 mg IVP Q6H PRN PRN Reason: Nausea / Vomiting Stop: 10/01/17 19:00 Pantoprazole Sodium (Protonix) 40 mg PO DAILY [facility] Stop: 10/06/17 09:44 Last Admin: 08/09/17 08:48 Dose: 40 mg Polyethylene Glycol (Miralax) 17 gm GT DAILY [facility] OF [facility] Stop: 10/08/17 08:59 Last Admin: 08/09/17 08:48 Dose: 17 gm Sodium Chloride (Saline Flush) 10 ml IV QSHIFT ON [facility] OF [facility] Stop: 10/01/17 19:59 Last Admin: 08/09/17 08:49 Dose: 10 ml General: No acute distress HEENT: PERRLA Neck: Supple Cardiovascular: Regular rate, Normal S1, Normal S2 Lungs: Clear to auscultation Abdomen: Soft, Other (G-tube noted.), no Tender, no Rebound, no Mass, no Guarding Extremities: Other (No edema, cyanosis, clubbing.) Neurological: Other (Alert awake and following commands.) - Procedures Procedures: Procedures Procedure Code Date CHANGE FEEDING DEVICE IN UP INTEST TRACT, [employer] APPROACH [id number] 08/02/17 CHANGE GASTROSTOMY TUBE 44424 08/02/17 Assessment/Plan - Assessment Assessment: hyponatremia hypokalemia alcoholism - Plan Plan: continue IVF replace potassium bp not controlled will increase coerg Nutritional Asmnt/Malnutr-PDOC - Dietary Evaluation Malnutrition Findings (Please click <Entered> for more info): Nutritional Asmnt/Malnutrition Start: 08/07/17 14: 53 Text: Status: Complete Freq: Document 08/07/17 14:53 TATO (Rec: 08/07/17 15:02 [place] [id number]) Nutritional Asmnt/Malnutrition Patient General Information Nutritional Screening Moderate Risk Diagnosis ALOC Pertinent Medical Hx/Surgical Hx throat cancer, dysphagia with g tube, DJD, psychotic disorder, alcholism use Subjective Information Pt seen lying in bed at time of visit. Verified TF running at 50ml/hr. Per RN, TF runs continuous. No residual noted per EMR. Current Diet Order/ Nutrition Support Fibersource HN 50ml/hr Pertinent Medications protonix Pertinent Labs 08/06 Na 131, K 3.7 (improved), Cl 96, BUN 10, Cr 0.9, GLucos 120 Nutritional Hx/Data Height 1.55 m Height (Calculated Centimeters) 154.9 Current Weight (lbs) 61.689 kg Weight (Calculated Kilograms) 61.7 Weight (Calculated Grams) 87945.6 [place] Body Weight 112 Body Mass Index (BMI) 25.7 Weight Status Overweight GI Symptoms GI Symptoms None Last BM 08/05 Difficult in: None Skin Integrity/Comment: skin tear multiple sites Estimated Nutritional Goals BEE in Kcals: Using Current wt Calories/Kcals/Kg 23-27 Kcals Calculated 5208-9223 Protein: Using Current wt Protein g/k-1.2 Protein Calculated 62-74 Nutritional Problem No current Nutrition Prob Problem N/A Intervention/Recommendation Comments 1. Continue with current TF regimen. It provides 1440kcal, 65g protein, 972ml free water , meeting 100% of nutritional needs 2. Monitor TF rate, tolerance, wt weekly, skin integrity and labs 3. F/U as moderate risk in 3-5 days, 08/10-08/12 Expected Outcomes/Goals Expected Outcomes/Goals 1. Pt to meet at least 75% of nutritional needs via nutrition support with tolerance 2. Wt stability, skin to remain intact, labs to approach WNL.
--- NOTE | 2017-08-09 21:41 | General Progress Note ---
Subjective - Review of Systems Service Date: 08/09/17 Subjective: Patient seen and examined nurse reported patient has cough with blood tinge sputum Objective - Results Result Diagrams: 08/06/17 06:08 08/06/17 06:08 Recent Labs: Laboratory Last Values WBC 6.9 Th/cmm (4.8-10.8) 08/06/17 06:08 RBC 3.81 Mil/cmm (3.80-5.80) 08/06/17 06:08 Hgb 12.6 gm/dL (12-16) 08/06/17 06:08 Hct 37.2 % (41.0-60) L 08/06/17 06:08 MCV 97.6 fl (80-99) 08/06/17 06:08 MCH 33.1 pg (27.0-31.0) H 08/06/17 06:08 MCHC Differential 34.0 pg (28.0-36.0) 08/06/17 06:08 RDW 13.6 % (11.5-20.0) 08/06/17 06:08 Plt Count 365 Th/cmm (150-400) 08/06/17 06:08 MPV 6.9 fl 08/06/17 06:08 Neutrophils % 51.3 % (40.0-80.0) 08/06/17 06:08 Band Neutrophils % 3 % (0-10) 08/02/17 15:43 Lymphocytes % 12.0 % (20.0-50.0) L 08/06/17 06:08 Monocytes % 11.6 % (2.0-10.0) H 08/06/17 06:08 Eosinophils % 23.9 % (0.0-5.0) H 08/06/17 06:08 Basophils % 1.2 % (0.0-2.0) 08/06/17 06:08 Neutrophils (Manual) 80 % (40-80) 08/02/17 15:43 Lymphocytes 9 % (20-50) L 08/02/17 15:43 Monocytes 4 % (2-10) 08/02/17 15:43 Eosinophils 4 % (0-5) 08/02/17 15:43 Basophils 0 % (0-3) 08/02/17 15:43 Specimen Source Arterial 08/02/17 09:33 Sample Site RB 08/02/17 09:33 pH 7.49 (7.35-7.45) H 08/02/17 09:33 pCO2 41.0 mmHg (35.0-45.0) 08/02/17 09:33 pO2 53.0 mmHg (80.0-100.0) L 08/02/17 09:33 HCO3 30.4 mEq/L (20.0-26.0) H 08/02/17 09:33 Base Excess 7.2 mEq/L (-3.0-3.0) H 08/02/17 09:33 O2 Saturation 90.0 % (92.0-100.0) L 08/02/17 09:33 Bladimir Test NA 08/02/17 09:33 Vent Rate NA 08/02/17 09:33 Inspired O2 21 08/02/17 09:33 Tidal Volume NA 08/02/17 09:33 PEEP NA 08/02/17 09:33 Pressure (ins/psv/peep) NA 08/02/17 09:33 Critical Value LZHANG 08/02/17 09:33 Sodium 131 mEq/L (136-145) L 08/06/17 06:08 Potassium 3.7 mEq/L (3.5-5.1) 08/06/17 06:08 Chloride 96 mEq/L (98-107) L 08/06/17 06:08 Carbon Dioxide 30.0 mEq/L (21.0-31.0) 08/06/17 06:08 Anion Gap 8.7 (7.0-16.0) 08/06/17 06:08 BUN 10 mg/dL (7-25) 08/06/17 06:08 Creatinine 0.9 mg/dL (0.7-1.3) 08/06/17 06:08 Est GFR ( Amer) TNP 08/06/17 06:08 Est GFR (Non-Af Amer) TNP 08/06/17 06:08 BUN/Creatinine Ratio 11.1 08/06/17 06:08 Glucose 120 mg/dL (70-105) H 08/06/17 06:08 Plasma/Ser Osmolality 255 mOsmol/kg (280-301) L 08/02/17 15:43 Uric Acid 5.3 mg/dL (4.4-7.6) 08/02/17 15:43 Calcium 9.5 mg/dL (8.6-10.3) 08/06/17 06:08 Magnesium 1.9 mg/dL (1.9-2.7) 08/04/17 06:42 Total Bilirubin 1.3 mg/dL (0.3-1.0) H 08/03/17 06:57 AST 18 U/L (13-39) 08/03/17 06:57 ALT 7 U/L (7-52) 08/03/17 06:57 Alkaline Phosphatase 78 U/L (34-104) 08/03/17 06:57 Ammonia 48 umol/L (16-53) 08/03/17 03:10 Total Protein 6.5 gm/dL (6.0-8.3) 08/03/17 06:57 Albumin 3.4 gm/dL (4.2-5.5) L 08/03/17 06:57 Globulin 3.1 gm/dL 08/03/17 06:57 Albumin/Globulin Ratio 1.1 (1.0-1.8) 08/03/17 06:57 TSH 5.34 uIU/ml (0.34-5.60) 08/02/17 15:43 Urine Source RANDOM 08/02/17 15:00 Urine Color YELLOW 08/02/17 15:00 Urine Clarity CLEAR (CLEAR) 08/02/17 15:00 Urine pH 6.5 (4.6 - 8.0) 08/02/17 15:00 Ur Specific [place] <= 1.005 (1.005-1.030) 08/02/17 15:00 Urine Protein NEGATIVE mg/dL (NEGATIVE) 08/02/17 15:00 Urine Glucose (UA) NEGATIVE mg/dL (NEGATIVE) 08/02/17 15:00 Urine Ketones NEGATIVE mg/dL (NEGATIVE) 08/02/17 15:00 Urine Blood TRACE (NEGATIVE) 08/02/17 15:00 Urine Nitrate NEGATIVE (NEGATIVE) 08/02/17 15:00 Urine Bilirubin NEGATIVE (NEGATIVE) 08/02/17 15:00 Urine Urobilinogen 0.2 E.U./dL (0.2 - 1.0) 08/02/17 15:00 Ur Leukocyte Esterase NEGATIVE (NEGATIVE) 08/02/17 15:00 Urine RBC 0-2 /hpf (0-5) H 08/02/17 15:00 Urine WBC 0-2 /hpf (0-5) 08/02/17 15:00 Ur Epithelial Cells NONE SEEN /lpf (FEW) 08/02/17 15:00 Urine Bacteria NONE SEEN /hpf (NONE SEEN) 08/02/17 15:00 Urine Osmolality 475 mOsmol/kg 08/06/17 21:00 - Physical Exam Vitals and I&O: Vital Signs Temp 98.3 F 08/09/17 17:46 Pulse 64 08/09/17 19:37 Resp 18 08/09/17 19:37 BP 195/91 08/09/17 17:46 Pulse Ox 92 08/09/17 19:37 Intake & Output 08/09/17 08/09/17 08/10/17 06:59 18:59 06:59 Intake Total 780 Output Total 800 950 Balance -800 -170 Weight (lbs) 61.462 kg 61.643 kg Intake: Tube Feeding 780 Output: Urine 800 950 Other: # Voids 3 # Bowel Movements 1 2 Active Medications: Current Medications Acetaminophen (Tylenol) 650 mg PO Q6H PRN PRN Reason: Mild Pain/Headache/T above 101 Stop: 10/01/17 19:00 Last Admin: 08/05/17 04:46 Dose: 650 mg Albuterol/Ipratropium (Duoneb Neb) 3 ml HHN [id number] [facility] Stop: 10/02/17 06:59 Last Admin: 08/09/17 19:37 Dose: 3 ml Carvedilol (Coreg) 12.5 mg PO BID [facility] Stop: 10/07/17 11:39 Last Admin: 08/09/17 16:19 Dose: 12.5 mg Ondansetron HCl (Zofran) 4 mg IVP Q6H PRN PRN Reason: Nausea / Vomiting Stop: 10/01/17 19:00 Pantoprazole Sodium (Protonix) 40 mg PO DAILY [facility] Stop: 10/06/17 09:44 Last Admin: 08/09/17 08:48 Dose: 40 mg Polyethylene Glycol (Miralax) 17 gm GT DAILY [facility] Stop: 10/08/17 08:59 Last Admin: 08/09/17 08:48 Dose: 17 gm Sodium Chloride (Saline Flush) 10 ml IV QSHIFT [facility] Stop: 10/01/17 19:59 Last Admin: 08/09/17 08:49 Dose: 10 ml General: No acute distress Cardiovascular: Regular rate, Normal S1, Normal S2 Lungs: Clear to auscultation Abdomen: Soft, Rebound, Mass, Other, no Tender, no Guarding Extremities: Other (No edema, cyanosis, clubbing.) Neurological: Other (Alert awake and following commands.) - Procedures Procedures: Procedures Procedure Code Date CHANGE FEEDING DEVICE IN UP INTEST TRACT, CONTACT CENTER [employer] LEAD APPROACH [id number] 08/02/17 CHANGE GASTROSTOMY TUBE 42079 08/02/17 Assessment/Plan - Assessment Assessment: HTN Cough Dysphagia G tube status Mental health disorder Constipation - Plan Plan: Chest x ray 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 Plan of care discussed with nursing staff Continue current treatment Psych follow up Nutritional Asmnt/Malnutr-PDOC - Dietary Evaluation Malnutrition Findings (Please click <Entered> for more info): Nutritional Asmnt/Malnutrition Start: 08/07/17 14: 53 Text: Status: Complete Freq: Document 08/07/17 14:53 OLIVIA (Rec: 08/07/17 15:[facility] Nutritional Asmnt/Malnutrition Patient General Information Nutritional Screening Moderate Risk Diagnosis ALOC Pertinent Medical Hx/Surgical Hx throat cancer, dysphagia with g tube, DJD, psychotic disorder, alcholism use Subjective Information Pt seen lying in bed at time of visit. Verified TF running at 50ml/hr. Per RN, TF runs continuous. No residual noted per EMR. Current Diet Order/ Nutrition Support Fibersource HN 50ml/hr Pertinent Medications protonix Pertinent Labs 08/06 Na 131, K 3.7 (improved), Cl 96, BUN 10, Cr 0.9, GLucos 120 Nutritional Hx/Data Height 1.55 m Height (Calculated Centimeters) 154.9 Current Weight (lbs) 61.689 kg Weight (Calculated Kilograms) 61.7 Weight (Calculated Grams) 82328.6 [place] Body Weight 112 Body Mass Index (BMI) 25.7 Weight Status Overweight GI Symptoms GI Symptoms None Last BM 08/05 Difficult in: None Skin Integrity/Comment: skin tear multiple sites Estimated Nutritional Goals BEE in Kcals: Using Current wt Calories/Kcals/Kg 23-27 Kcals Calculated 8407-0397 Protein: Using Current wt Protein g/k-1.2 Protein Calculated 62-74 Nutritional Problem No current Nutrition Prob Problem N/A Intervention/Recommendation Comments 1. Continue with current TF regimen. It provides 1440kcal, 65g protein, 972ml free water , meeting 100% of nutritional needs 2. Monitor TF rate, tolerance, wt weekly, skin integrity and labs 3. F/U as moderate risk in 3-5 days, 08/10-08/12 Expected Outcomes/Goals Expected Outcomes/Goals 1. Pt to meet at least 75% of nutritional needs via nutrition support with tolerance 2. Wt stability, skin to remain intact, labs to approach WNL.
[2017-08-10] MEDS: Albuterol/Ipratropium Neb 3 ML AERS HHN SCH ×3 (07:15→18:36)
--- NOTE | 2017-08-10 08:33 | Diagnostic Imaging Report ---
Chest x-ray (2 views) HISTORY: Shortness of breath Compared with a prior exam of August 02, 2017, a linear density seen in the right perihilar region. Findings may be associated with subsegmental atelectasis. No other change. IMPRESSION: 1. New linear density within the right perihilar region. The finding may be associated with subsegmental atelectasis.
[2017-08-10] MEDS: POLYETHYLENE GLYCOL 3350 17 GM PACK GT SCH (09:21)
[2017-08-10] MEDS: Pantoprazole 40 mg/Packet PO SCH (09:21)
--- NOTE | 2017-08-10 14:25 | General Progress Note ---
Subjective - Review of Systems Service Date: 08/10/17 Events since last encounter: No new events.l Subjective: "I am fine." Objective - Results Result Diagrams: 08/06/17 06:08 08/06/17 06:08 Recent Labs: Laboratory Last Values WBC 6.9 Th/cmm (4.8-10.8) 08/06/17 06:08 RBC 3.81 Mil/cmm (3.80-5.80) 08/06/17 06:08 Hgb 12.6 gm/dL (12-16) 08/06/17 06:08 Hct 37.2 % (41.0-60) L 08/06/17 06:08 MCV 97.6 fl (80-99) 08/06/17 06:08 MCH 33.1 pg (27.0-31.0) H 08/06/17 06:08 MCHC Differential 34.0 pg (28.0-36.0) 08/06/17 06:08 RDW 13.6 % (11.5-20.0) 08/06/17 06:08 Plt Count 365 Th/cmm (150-400) 08/06/17 06:08 MPV 6.9 fl 08/06/17 06:08 Neutrophils % 51.3 % (40.0-80.0) 08/06/17 06:08 Band Neutrophils % 3 % (0-10) 08/02/17 15:43 Lymphocytes % 12.0 % (20.0-50.0) L 08/06/17 06:08 Monocytes % 11.6 % (2.0-10.0) H 08/06/17 06:08 Eosinophils % 23.9 % (0.0-5.0) H 08/06/17 06:08 Basophils % 1.2 % (0.0-2.0) 08/06/17 06:08 Neutrophils (Manual) 80 % (40-80) 08/02/17 15:43 Lymphocytes 9 % (20-50) L 08/02/17 15:43 Monocytes 4 % (2-10) 08/02/17 15:43 Eosinophils 4 % (0-5) 08/02/17 15:43 Basophils 0 % (0-3) 08/02/17 15:43 Specimen Source Arterial 08/02/17 09:33 Sample Site RB 08/02/17 09:33 pH 7.49 (7.35-7.45) H 08/02/17 09:33 pCO2 41.0 mmHg (35.0-45.0) 08/02/17 09:33 pO2 53.0 mmHg (80.0-100.0) L 08/02/17 09:33 HCO3 30.4 mEq/L (20.0-26.0) H 08/02/17 09:33 Base Excess 7.2 mEq/L (-3.0-3.0) H 08/02/17 09:33 O2 Saturation 90.0 % (92.0-100.0) L 08/02/17 09:33 Bladimir Test NA 08/02/17 09:33 Vent Rate NA 08/02/17 09:33 Inspired O2 21 08/02/17 09:33 Tidal Volume NA 08/02/17 09:33 PEEP NA 08/02/17 09:33 Pressure (ins/psv/peep) NA 08/02/17 09:33 Critical Value LZHANG 08/02/17 09:33 Sodium 131 mEq/L (136-145) L 08/06/17 06:08 Potassium 3.7 mEq/L (3.5-5.1) 08/06/17 06:08 Chloride 96 mEq/L (98-107) L 08/06/17 06:08 Carbon Dioxide 30.0 mEq/L (21.0-31.0) 08/06/17 06:08 Anion Gap 8.7 (7.0-16.0) 08/06/17 06:08 BUN 10 mg/dL (7-25) 08/06/17 06:08 Creatinine 0.9 mg/dL (0.7-1.3) 08/06/17 06:08 Est GFR ( Amer) TNP 08/06/17 06:08 Est GFR (Non-Af Amer) TNP 08/06/17 06:08 BUN/Creatinine Ratio 11.1 08/06/17 06:08 Glucose 120 mg/dL (70-105) H 08/06/17 06:08 Plasma/Ser Osmolality 255 mOsmol/kg (280-301) L 08/02/17 15:43 Uric Acid 5.3 mg/dL (4.4-7.6) 08/02/17 15:43 Calcium 9.5 mg/dL (8.6-10.3) 08/06/17 06:08 Magnesium 1.9 mg/dL (1.9-2.7) 08/04/17 06:42 Total Bilirubin 1.3 mg/dL (0.3-1.0) H 08/03/17 06:57 AST 18 U/L (13-39) 08/03/17 06:57 ALT 7 U/L (7-52) 08/03/17 06:57 Alkaline Phosphatase 78 U/L (34-104) 08/03/17 06:57 Ammonia 48 umol/L (16-53) 08/03/17 03:10 Total Protein 6.5 gm/dL (6.0-8.3) 08/03/17 06:57 Albumin 3.4 gm/dL (4.2-5.5) L 08/03/17 06:57 Globulin 3.1 gm/dL 08/03/17 06:57 Albumin/Globulin Ratio 1.1 (1.0-1.8) 08/03/17 06:57 TSH 5.34 uIU/ml (0.34-5.60) 08/02/17 15:43 Urine Source RANDOM 08/02/17 15:00 Urine Color YELLOW 08/02/17 15:00 Urine Clarity CLEAR (CLEAR) 08/02/17 15:00 Urine pH 6.5 (4.6 - 8.0) 08/02/17 15:00 Ur Specific [place] <= 1.005 (1.005-1.030) 08/02/17 15:00 Urine Protein NEGATIVE mg/dL (NEGATIVE) 08/02/17 15:00 Urine Glucose (UA) NEGATIVE mg/dL (NEGATIVE) 08/02/17 15:00 Urine Ketones NEGATIVE mg/dL (NEGATIVE) 08/02/17 15:00 Urine Blood TRACE (NEGATIVE) 08/02/17 15:00 Urine Nitrate NEGATIVE (NEGATIVE) 08/02/17 15:00 Urine Bilirubin NEGATIVE (NEGATIVE) 08/02/17 15:00 Urine Urobilinogen 0.2 E.U./dL (0.2 - 1.0) 08/02/17 15:00 Ur Leukocyte Esterase NEGATIVE (NEGATIVE) 08/02/17 15:00 Urine RBC 0-2 /hpf (0-5) H 08/02/17 15:00 Urine WBC 0-2 /hpf (0-5) 08/02/17 15:00 Ur Epithelial Cells NONE SEEN /lpf (FEW) 08/02/17 15:00 Urine Bacteria NONE SEEN /hpf (NONE SEEN) 08/02/17 15:00 Urine Osmolality 475 mOsmol/kg 08/06/17 21:00 - Physical Exam Vitals and I&O: Vital Signs Temp 97.4 F 08/10/17 08:00 Pulse 68 08/10/17 13:35 Resp 18 08/10/17 13:27 BP 181/79 08/10/17 13:35 Pulse Ox 97 08/10/17 13:27 Intake & Output 08/09/17 08/10/17 08/10/17 18:59 06:59 18:59 Intake Total 780 Output Total 950 200 Balance -170 -200 Weight (lbs) 61.643 kg 61.643 kg Intake: Tube Feeding 780 Output: Urine 950 200 Other: # Voids 3 # Bowel Movements 2 0 Stool Characteristics Soft Formed Active Medications: Current Medications Acetaminophen (Tylenol) 650 mg PO Q6H PRN PRN Reason: Mild Pain/Headache/T above 101 Stop: 10/01/17 19:00 Last Admin: 08/05/17 04:46 Dose: 650 mg Albuterol/Ipratropium (Duoneb Neb) 3 ml HHN [id number] [facility] Stop: 10/02/17 06:59 Last Admin: 08/10/17 13:27 Dose: 3 ml Carvedilol (Coreg) 25 mg PO BID [facility] Stop: 10/09/17 16:59 Ondansetron HCl (Zofran) 4 mg IVP Q6H PRN PRN Reason: Nausea / Vomiting Stop: 10/01/17 19:00 Pantoprazole Sodium (Protonix) 40 mg PO DAILY [facility] Stop: 10/06/17 09:44 Last Admin: 08/10/17 09:21 Dose: 40 mg Polyethylene Glycol (Miralax) 17 gm GT DAILY [facility] Stop: 10/08/17 08:59 Last Admin: 08/10/17 09:21 Dose: 17 gm Sodium Chloride (Saline Flush) 10 ml IV QSHIFT [facility] Stop: 10/01/17 19:59 Last Admin: 08/10/17 09:28 Dose: 10 ml General: No acute distress HEENT: PERRLA Neck: Supple Cardiovascular: Regular rate, Normal S1, Normal S2 Lungs: Clear to auscultation Abdomen: Soft, Rebound, Mass, Other, no Tender, no Guarding Extremities: Other (No edema, cyanosis, clubbing.) Neurological: Other (Alert awake and following commands.) Other physical findings: Gtube - Procedures Procedures: Procedures Procedure Code Date CHANGE FEEDING DEVICE IN UP INTEST TRACT, IMPROVEMENT LEAD APPROACH [id number] 08/02/17 CHANGE GASTROSTOMY TUBE 45421 08/02/17 Assessment/Plan - Assessment Assessment: Pt has no new labs. Will recheck in am BP is high. Coreg was increased today by Dr. Gutierrez. Will monitor. - Plan Plan: Labs in am Coreg dose increased. Nutritional Asmnt/Malnutr-PDOC - Dietary Evaluation Malnutrition Findings (Please click <Entered> for more info): Nutritional Asmnt/Malnutrition Start: 08/07/17 14: 53 Text: Status: Complete Freq: Document 08/07/17 14:53 [facility] (Rec: 08/07/17 15:02 HEN [email or web address]) Nutritional Asmnt/Malnutrition Patient General Information Nutritional Screening Moderate Risk Diagnosis ALOC Pertinent Medical Hx/Surgical Hx throat cancer, dysphagia with g tube, DJD, psychotic disorder, alcholism use Subjective Information Pt seen lying in bed at time of visit. Verified TF running at 50ml/hr. Per RN, TF runs continuous. No residual noted per EMR. Current Diet Order/ Nutrition Support Fibersource HN 50ml/hr Pertinent Medications protonix Pertinent Labs 08/06 Na 131, K 3.7 (improved), Cl 96, BUN 10, Cr 0.9, GLucos 120 Nutritional Hx/Data Height 1.55 m Height (Calculated Centimeters) 154.9 Current Weight (lbs) 61.689 kg Weight (Calculated Kilograms) 61.7 Weight (Calculated Grams) 54230.6 [place] Body Weight 112 Body Mass Index (BMI) 25.7 Weight Status Overweight GI Symptoms GI Symptoms None Last BM 08/05 Difficult in: None Skin Integrity/Comment: skin tear multiple sites Estimated Nutritional Goals BEE in Kcals: Using Current wt Calories/Kcals/Kg 23-27 Kcals Calculated 2170-0639 Protein: Using Current wt Protein g/k-1.2 Protein Calculated 62-74 Nutritional Problem No current Nutrition Prob Problem N/A Intervention/Recommendation Comments 1. Continue with current TF regimen. It provides 1440kcal, 65g protein, 972ml free water , meeting 100% of nutritional needs 2. Monitor TF rate, tolerance, wt weekly, skin integrity and labs 3. F/U as moderate risk in 3-5 days, 08/10-08/12 Expected Outcomes/Goals Expected Outcomes/Goals 1. Pt to meet at least 75% of nutritional needs via nutrition support with tolerance 2. Wt stability, skin to remain intact, labs to approach WNL.
--- NOTE | 2017-08-10 16:41 | General Progress Note ---
Subjective - Review of Systems Service Date: 08/10/17 Subjective: Patient seen and examined nursing staff reported that patient' BP was running high systolic 180's Objective - Results Result Diagrams: 08/06/17 06:08 08/06/17 06:08 Recent Labs: Laboratory Last Values WBC 6.9 Th/cmm (4.8-10.8) 08/06/17 06:08 RBC 3.81 Mil/cmm (3.80-5.80) 08/06/17 06:08 Hgb 12.6 gm/dL (12-16) 08/06/17 06:08 Hct 37.2 % (41.0-60) L 08/06/17 06:08 MCV 97.6 fl (80-99) 08/06/17 06:08 MCH 33.1 pg (27.0-31.0) H 08/06/17 06:08 MCHC Differential 34.0 pg (28.0-36.0) 08/06/17 06:08 RDW 13.6 % (11.5-20.0) 08/06/17 06:08 Plt Count 365 Th/cmm (150-400) 08/06/17 06:08 MPV 6.9 fl 08/06/17 06:08 Neutrophils % 51.3 % (40.0-80.0) 08/06/17 06:08 Band Neutrophils % 3 % (0-10) 08/02/17 15:43 Lymphocytes % 12.0 % (20.0-50.0) L 08/06/17 06:08 Monocytes % 11.6 % (2.0-10.0) H 08/06/17 06:08 Eosinophils % 23.9 % (0.0-5.0) H 08/06/17 06:08 Basophils % 1.2 % (0.0-2.0) 08/06/17 06:08 Neutrophils (Manual) 80 % (40-80) 08/02/17 15:43 Lymphocytes 9 % (20-50) L 08/02/17 15:43 Monocytes 4 % (2-10) 08/02/17 15:43 Eosinophils 4 % (0-5) 08/02/17 15:43 Basophils 0 % (0-3) 08/02/17 15:43 Specimen Source Arterial 08/02/17 09:33 Sample Site RB 03/09/18 09:33 pH 7.49 (7.35-7.45) H 08/02/17 09:33 pCO2 41.0 mmHg (35.0-45.0) 08/02/17 09:33 pO2 53.0 mmHg (80.0-100.0) L 08/02/17 09:33 HCO3 30.4 mEq/L (20.0-26.0) H 08/02/17 09:33 Base Excess 7.2 mEq/L (-3.0-3.0) H 08/02/17 09:33 O2 Saturation 90.0 % (92.0-100.0) L 08/02/17 09:33 Bladimir Test NA 08/02/17 09:33 Vent Rate NA 08/02/17 09:33 Inspired O2 21 08/02/17 09:33 Tidal Volume NA 08/02/17 09:33 PEEP NA 08/02/17 09:33 Pressure (ins/psv/peep) NA 08/02/17 09:33 Critical Value LZHANG 08/02/17 09:33 Sodium 131 mEq/L (136-145) L 08/06/17 06:08 Potassium 3.7 mEq/L (3.5-5.1) 08/06/17 06:08 Chloride 96 mEq/L (98-107) L 08/06/17 06:08 Carbon Dioxide 30.0 mEq/L (21.0-31.0) 08/06/17 06:08 Anion Gap 8.7 (7.0-16.0) 08/06/17 06:08 BUN 10 mg/dL (7-25) 08/06/17 06:08 Creatinine 0.9 mg/dL (0.7-1.3) 08/06/17 06:08 Est GFR ( Amer) TNP 08/06/17 06:08 Est GFR (Non-Af Amer) TNP 08/06/17 06:08 BUN/Creatinine Ratio 11.1 08/06/17 06:08 Glucose 120 mg/dL (70-105) H 08/06/17 06:08 Plasma/Ser Osmolality 255 mOsmol/kg (280-301) L 08/02/17 15:43 Uric Acid 5.3 mg/dL (4.4-7.6) 08/02/17 15:43 Calcium 9.5 mg/dL (8.6-10.3) 08/06/17 06:08 Magnesium 1.9 mg/dL (1.9-2.7) 08/04/17 06:42 Total Bilirubin 1.3 mg/dL (0.3-1.0) H 08/03/17 06:57 AST 18 U/L (13-39) 08/03/17 06:57 ALT 7 U/L (7-52) 08/03/17 06:57 Alkaline Phosphatase 78 U/L (34-104) 08/03/17 06:57 Ammonia 48 umol/L (16-53) 08/03/17 03:10 Total Protein 6.5 gm/dL (6.0-8.3) 08/03/17 06:57 Albumin 3.4 gm/dL (4.2-5.5) L 08/03/17 06:57 Globulin 3.1 gm/dL 08/03/17 06:57 Albumin/Globulin Ratio 1.1 (1.0-1.8) 08/03/17 06:57 TSH 5.34 uIU/ml (0.34-5.60) 08/02/17 15:43 Urine Source RANDOM 08/02/17 15:00 Urine Color YELLOW 08/02/17 15:00 Urine Clarity CLEAR (CLEAR) 08/02/17 15:00 Urine pH 6.5 (4.6 - 8.0) 08/02/17 15:00 Ur Specific [place] <= 1.005 (1.005-1.030) 08/02/17 15:00 Urine Protein NEGATIVE mg/dL (NEGATIVE) 08/02/17 15:00 Urine Glucose (UA) NEGATIVE mg/dL (NEGATIVE) 08/02/17 15:00 Urine Ketones NEGATIVE mg/dL (NEGATIVE) 08/02/17 15:00 Urine Blood TRACE (NEGATIVE) 08/02/17 15:00 Urine Nitrate NEGATIVE (NEGATIVE) 08/02/17 15:00 Urine Bilirubin NEGATIVE (NEGATIVE) 08/02/17 15:00 Urine Urobilinogen 0.2 E.U./dL (0.2 - 1.0) 08/02/17 15:00 Ur Leukocyte Esterase NEGATIVE (NEGATIVE) 08/02/17 15:00 Urine RBC 0-2 /hpf (0-5) H 08/02/17 15:00 Urine WBC 0-2 /hpf (0-5) 08/02/17 15:00 Ur Epithelial Cells NONE SEEN /lpf (FEW) 08/02/17 15:00 Urine Bacteria NONE SEEN /hpf (NONE SEEN) 08/02/17 15:00 Urine Osmolality 475 mOsmol/kg 08/06/17 21:00 - Physical Exam Vitals and I&O: Vital Signs Temp 97.4 F 08/10/17 08:00 Pulse 68 08/10/17 14:00 Resp 18 08/10/17 13:27 BP 143/68 08/10/17 14:00 Pulse Ox 97 08/10/17 13:27 Intake & Output 08/09/17 08/10/17 08/10/17 18:59 06:59 18:59 Intake Total 780 Output Total 950 200 Balance -170 -200 Weight (lbs) 61.643 kg 61.643 kg Intake: Tube Feeding 780 Output: Urine 950 200 Other: # Voids 3 # Bowel Movements 2 0 Stool Characteristics Soft Formed Active Medications: Current Medications Acetaminophen (Tylenol) 650 mg PO Q6H PRN PRN Reason: Mild Pain/Headache/T above 101 Stop: 10/01/17 19:00 Last Admin: 08/05/17 04:46 Dose: 650 mg Albuterol/Ipratropium (Duoneb Neb) 3 ml HHN [id number] [facility] Stop: 10/02/17 06:59 Last Admin: 08/10/17 13:27 Dose: 3 ml Carvedilol (Coreg) 25 mg PO BID [facility] Stop: 10/09/17 16:59 Ondansetron HCl (Zofran) 4 mg IVP Q6H PRN PRN Reason: Nausea / Vomiting Stop: 10/01/17 19:00 Pantoprazole Sodium (Protonix) 40 mg PO DAILY [facility] Stop: 10/06/17 09:44 Last Admin: 08/10/17 09:21 Dose: 40 mg Polyethylene Glycol (Miralax) 17 gm GT DAILY [facility] Stop: 10/08/17 08:59 Last Admin: 08/10/17 09:21 Dose: 17 gm Sodium Chloride (Saline Flush) 10 ml IV QSHIFT [facility] Stop: 10/01/17 19:59 Last Admin: 08/10/17 09:28 Dose: 10 ml General: No acute distress Cardiovascular: Regular rate Lungs: Clear to auscultation Abdomen: Soft, no Tender, no Guarding Extremities: Other (No edema, cyanosis, clubbing.) Neurological: Other (Alert awake and following commands.) - Procedures Procedures: Procedures Procedure Code Date CHANGE FEEDING DEVICE IN UP INTEST TRACT, 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 [id number] 08/02/17 CHANGE GASTROSTOMY TUBE 09450 08/02/17 Assessment/Plan - Assessment Assessment: HTN with elevated BP Cough better Dysphagia G tube status Mental health disorder Constipation - Plan Plan: Chest x ray no acute findings Coreg dose was increased Monitor BP 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 Plan of care discussed with nursing staff Continue current treatment Psych follow up Nutritional Asmnt/Malnutr-PDOC - Dietary Evaluation Malnutrition Findings (Please click <Entered> for more info): Nutritional Asmnt/Malnutrition Start: 08/07/17 14: 53 Text: Status: Complete Freq: Document 08/07/17 14:53 TATO (Rec: 08/07/17 15:02 LCOLIVIA [email or web address]) Nutritional Asmnt/Malnutrition Patient General Information Nutritional Screening Moderate Risk Diagnosis ALOC Pertinent Medical Hx/Surgical Hx throat cancer, dysphagia with g tube, DJD, psychotic disorder, alcholism use Subjective Information Pt seen lying in bed at time of visit. Verified TF running at 50ml/hr. Per RN, TF runs continuous. No residual noted per EMR. Current Diet Order/ Nutrition Support Fibersource HN 50ml/hr Pertinent Medications protonix Pertinent Labs 08/06 Na 131, K 3.7 (improved), Cl 96, BUN 10, Cr 0.9, GLucos 120 Nutritional Hx/Data Height 1.55 m Height (Calculated Centimeters) 154.9 Current Weight (lbs) 61.689 kg Weight (Calculated Kilograms) 61.7 Weight (Calculated Grams) 79706.6 [place] Body Weight 112 Body Mass Index (BMI) 25.7 Weight Status Overweight GI Symptoms GI Symptoms None Last BM 08/05 Difficult in: None Skin Integrity/Comment: skin tear multiple sites Estimated Nutritional Goals BEE in Kcals: Using Current wt Calories/Kcals/Kg 23-27 Kcals Calculated 5447-5376 Protein: Using Current wt Protein g/k-1.2 Protein Calculated 62-74 Nutritional Problem No current Nutrition Prob Problem N/A Intervention/Recommendation Comments 1. Continue with current TF regimen. It provides 1440kcal, 65g protein, 972ml free water , meeting 100% of nutritional needs 2. Monitor TF rate, tolerance, wt weekly, skin integrity and labs 3. F/U as moderate risk in 3-5 days, 08/10-08/12 Expected Outcomes/Goals Expected Outcomes/Goals 1. Pt to meet at least 75% of nutritional needs via nutrition support with tolerance 2. Wt stability, skin to remain intact, labs to approach WNL.
--- NOTE | 2017-08-10 22:43 | Progress Notes ---
DATE: 08/10/[address] Juárez. Case was discussed with staff of the patient, reviewed records and labs. The patient has been calmer, less agitated, easier to follow direction, and more cooperative with staff. No combative behavior. He is still with peers of irritability, but less than before. Thank you very much for allowing me to participate in the care of this most interesting gentleman. JOB# [id number]
[2017-08-11 07:00] LABS: HEMATOCRIT 41.4 % (41.0-60); HEMOGLOBIN 13.6 gm/dL (12-16); MEAN CELL VOLUME 98.2 fl (80-99); MEAN CORPUSCULAR HEMOGLOBIN 32.3 pg (27.0-31.0); MEAN CORPUSCULAR HGB CONC 32.9 pg (28.0-36.0); MEAN PLATELET VOLUME 8.1 fl; PLATELET COUNT 342 Th/cmm (150-400); RED BLOOD COUNT 4.22 Mil/cmm (3.80-5.80); RED CELL DISTRIBUTION WIDTH 13.3 % (11.5-20.0); WHITE BLOOD COUNT 8.2 Th/cmm (4.8-10.8)
[2017-08-11] MEDS: Albuterol/Ipratropium Neb 3 ML AERS HHN SCH ×3 (07:02→18:50)
[2017-08-11 07:06] LABS: MANUAL DIFF REQUIRED? YES
[2017-08-11 07:13] LABS: ALBUMIN 3.7 gm/dL (4.2-5.5); ALKALINE PHOSPHATASE 64 U/L (34-104); ANION GAP 11.1 (7.0-16.0); BILIRUBIN,TOTAL 0.4 mg/dL (0.3-1.0); BUN - UREA NITROGEN 20 mg/dL (7-25); CALCIUM SERUM 9.9 mg/dL (8.6-10.3); CARBON DIOXIDE 24.9 mEq/L (21.0-31.0); CHLORIDE 99 mEq/L (98-107); CREATININE - SERUM 0.9 mg/dL (0.7-1.3); GLUCOSE 97 mg/dL (70-105); SGOT 15 U/L (13-39); SGPT/ALT 6 U/L (7-52); SODIUM SERUM 131 mEq/L (136-145); TOTAL PROTEIN,SERUM 7.3 gm/dL (6.0-8.3)
[2017-08-11] MEDS: Pantoprazole 40 mg/Packet PO SCH (09:06)
[2017-08-11] MEDS: POLYETHYLENE GLYCOL 3350 17 GM PACK GT SCH (09:06)
[2017-08-11 10:34] LABS: EOSINOPHIL 21 % (0-5); LYMPHOCYTE 10 % (20-50); MONOCYTE 9 % (2-10); NEUTROPHILS 60 % (40-80); TOTAL CELLS COUNTED 100
--- NOTE | 2017-08-11 15:40 | General Progress Note ---
Subjective - Review of Systems Service Date: 08/11/17 Events since last encounter: No new events Subjective: Denies CP, SOB Objective - Results Result Diagrams: 08/11/17 06:26 08/11/17 06:26 Recent Labs: Laboratory Last Values WBC 8.2 Th/cmm (4.8-10.8) 08/11/17 06:26 RBC 4.22 Mil/cmm (3.80-5.80) 08/11/17 06:26 Hgb 13.6 gm/dL (12-16) 08/11/17 06:26 Hct 41.4 % (41.0-60) 08/11/17 06:26 MCV 98.2 fl (80-99) 08/11/17 06:26 MCH 32.3 pg (27.0-31.0) H 08/11/17 06:26 MCHC Differential 32.9 pg (28.0-36.0) 08/11/17 06:26 RDW 13.3 % (11.5-20.0) 08/11/17 06:26 Plt Count 342 Th/cmm (150-400) 08/11/17 06:26 MPV 8.1 fl 08/11/17 06:26 Neutrophils % 51.3 % (40.0-80.0) 08/06/17 06:08 Band Neutrophils % 3 % (0-10) 08/02/17 15:43 Lymphocytes % 12.0 % (20.0-50.0) L 08/06/17 06:08 Monocytes % 11.6 % (2.0-10.0) H 08/06/17 06:08 Eosinophils % 23.9 % (0.0-5.0) H 08/06/17 06:08 Basophils % 1.2 % (0.0-2.0) 08/06/17 06:08 Neutrophils (Manual) 60 % (40-80) 08/11/17 06:26 Lymphocytes 10 % (20-50) L 08/11/17 06:26 Monocytes 9 % (2-10) 08/11/17 06:26 Eosinophils 21 % (0-5) H 08/11/17 06:26 Basophils 0 % (0-3) 08/02/17 15:43 Specimen Source Arterial 08/02/17 09:33 Sample Site RB 08/02/17 09:33 pH 7.49 (7.35-7.45) H 08/02/17 09:33 pCO2 41.0 mmHg (35.0-45.0) 08/02/17 09:33 pO2 53.0 mmHg (80.0-100.0) L 08/02/17 09:33 HCO3 30.4 mEq/L (20.0-26.0) H 08/02/17 09:33 Base Excess 7.2 mEq/L (-3.0-3.0) H 08/02/17 09:33 O2 Saturation 90.0 % (92.0-100.0) L 08/02/17 09:33 Bladimir Test NA 08/02/17 09:33 Vent Rate NA 08/02/17 09:33 Inspired O2 21 08/02/17 09:33 Tidal Volume NA 08/02/17 09:33 PEEP NA 08/02/17 09:33 Pressure (ins/psv/peep) NA 08/02/17 09:33 Critical Value LZHANG 08/02/17 09:33 Sodium 131 mEq/L (136-145) L 08/11/17 06:26 Potassium 4.0 mEq/L (3.5-5.1) 08/11/17 06:26 Chloride 99 mEq/L (98-107) 08/11/17 06:26 Carbon Dioxide 24.9 mEq/L (21.0-31.0) 08/11/17 06:26 Anion Gap 11.1 (7.0-16.0) 08/11/17 06:26 BUN 20 mg/dL (7-25) 08/11/17 06:26 Creatinine 0.9 mg/dL (0.7-1.3) 08/11/17 06:26 Est GFR ( Amer) TNP 08/11/17 06:26 Est GFR (Non-Af Amer) TNP 08/11/17 06:26 BUN/Creatinine Ratio 22.2 08/11/17 06:26 Glucose 97 mg/dL (70-105) 08/11/17 06:26 Plasma/Ser Osmolality 255 mOsmol/kg (280-301) L 08/02/17 15:43 Uric Acid 5.3 mg/dL (4.4-7.6) 08/02/17 15:43 Calcium 9.9 mg/dL (8.6-10.3) 08/11/17 06:26 Magnesium 1.9 mg/dL (1.9-2.7) 08/04/17 06:42 Total Bilirubin 0.4 mg/dL (0.3-1.0) 08/11/17 06:26 AST 15 U/L (13-39) 08/11/17 06:26 ALT 6 U/L (7-52) L 08/11/17 06:26 Alkaline Phosphatase 64 U/L (34-104) 08/11/17 06:26 Ammonia 48 umol/L (16-53) 08/03/17 03:10 Total Protein 7.3 gm/dL (6.0-8.3) 08/11/17 06:26 Albumin 3.7 gm/dL (4.2-5.5) L 08/11/17 06:26 Globulin 3.6 gm/dL 08/11/17 06:26 Albumin/Globulin Ratio 1.0 (1.0-1.8) 08/11/17 06:26 TSH 5.34 uIU/ml (0.34-5.60) 08/02/17 15:43 Urine Source RANDOM 08/02/17 15:00 Urine Color YELLOW 08/02/17 15:00 Urine Clarity CLEAR (CLEAR) 08/02/17 15:00 Urine pH 6.5 (4.6 - 8.0) 08/02/17 15:00 Ur Specific [place] <= 1.005 (1.005-1.030) 08/02/17 15:00 Urine Protein NEGATIVE mg/dL (NEGATIVE) 08/02/17 15:00 Urine Glucose (UA) NEGATIVE mg/dL (NEGATIVE) 08/02/17 15:00 Urine Ketones NEGATIVE mg/dL (NEGATIVE) 08/02/17 15:00 Urine Blood TRACE (NEGATIVE) 08/02/17 15:00 Urine Nitrate NEGATIVE (NEGATIVE) 08/02/17 15:00 Urine Bilirubin NEGATIVE (NEGATIVE) 08/02/17 15:00 Urine Urobilinogen 0.2 E.U./dL (0.2 - 1.0) 08/02/17 15:00 Ur Leukocyte Esterase NEGATIVE (NEGATIVE) 08/02/17 15:00 Urine RBC 0-2 /hpf (0-5) H 08/02/17 15:00 Urine WBC 0-2 /hpf (0-5) 08/02/17 15:00 Ur Epithelial Cells NONE SEEN /lpf (FEW) 08/02/17 15:00 Urine Bacteria NONE SEEN /hpf (NONE SEEN) 08/02/17 15:00 Urine Osmolality 475 mOsmol/kg 08/06/17 21:00 - Physical Exam Vitals and I&O: Vital Signs Temp 97.5 F 08/11/17 08:00 Pulse 65 08/11/17 12:10 Resp 18 08/11/17 12:10 BP 123/75 08/11/17 09:06 Pulse Ox 95 08/11/17 12:10 Intake & Output 08/10/17 08/11/17 08/11/17 18:59 06:59 18:59 Intake Total 850 600 Balance 850 600 Weight (lbs) 61.235 kg 61.235 kg Intake: Oral 600 0 Tube Feeding 600 Other 250 Other: # Voids 3 3 # Bowel Movements 1 1 Stool Characteristics Soft Soft Soft Formed Formed Formed Active Medications: Current Medications Acetaminophen (Tylenol) 650 mg PO Q6H PRN PRN Reason: Mild Pain/Headache/T above 101 Stop: 10/01/17 19:00 Last Admin: 08/05/17 04:46 Dose: 650 mg Albuterol/Ipratropium (Duoneb Neb) 3 ml HHN [id number] [facility] Stop: 10/02/17 06:59 Last Admin: 08/11/17 12:10 Dose: 3 ml Carvedilol (Coreg) 25 mg PO BID [facility] Stop: 10/09/17 16:59 Last Admin: 08/11/17 09:06 Dose: 25 mg Ondansetron HCl (Zofran) 4 mg IVP Q6H PRN PRN Reason: Nausea / Vomiting Stop: 10/01/17 19:00 Pantoprazole Sodium (Protonix) 40 mg PO DAILY [facility] Stop: 10/06/17 09:44 Last Admin: 08/11/17 09:06 Dose: 40 mg Polyethylene Glycol (Miralax) 17 gm GT DAILY [facility] Stop: 10/08/17 08:59 Last Admin: 08/11/17 09:06 Dose: 17 gm Sodium Chloride (Saline Flush) 10 ml IV QSHIFT [facility] Stop: 10/01/17 19:59 Last Admin: 08/10/17 20:17 Dose: 10 ml General: Cooperative, No acute distress HEENT: PERRLA Neck: Supple Cardiovascular: Regular rate Lungs: Clear to auscultation Abdomen: Soft, no Tender, no Guarding Extremities: Other (No edema, cyanosis, clubbing.) Neurological: Other (Alert awake and following commands.) - Procedures Procedures: Procedures Procedure Code Date CHANGE FEEDING DEVICE IN UP INTEST TRACT, 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 Occasional high reading but otherwise better. Continue to monitor - Plan Plan: Cr is stable. Mild hyponatremia but stable. Coreg dose increased. Nutritional Asmnt/Malnutr-PDOC - Dietary Evaluation Malnutrition Findings (Please click <Entered> for more info): Nutritional Asmnt/Malnutrition Start: 08/07/17 14: 53 Text: Status: Complete Freq: Document 08/07/17 14:53 OLIVIA (Rec: 08/07/17 15:02 [facility] Nutritional Asmnt/Malnutrition Patient General Information Nutritional Screening Moderate Risk Diagnosis ALOC Pertinent Medical Hx/Surgical Hx throat cancer, dysphagia with g tube, DJD, psychotic disorder, alcholism use Subjective Information Pt seen lying in bed at time of visit. Verified TF running at 50ml/hr. Per RN, TF runs continuous. No residual noted per EMR. Current Diet Order/ Nutrition Support Fibersource HN 50ml/hr Pertinent Medications protonix Pertinent Labs 08/06 Na 131, K 3.7 (improved), Cl 96, BUN 10, Cr 0.9, GLucos 120 Nutritional Hx/Data Height 1.55 m Height (Calculated Centimeters) 154.9 Current Weight (lbs) 61.689 kg Weight (Calculated Kilograms) 61.7 Weight (Calculated Grams) 75370.6 [place] Body Weight 112 Body Mass Index (BMI) 25.7 Weight Status Overweight GI Symptoms GI Symptoms None Last BM 08/05 Difficult in: None Skin Integrity/Comment: skin tear multiple sites Estimated Nutritional Goals BEE in Kcals: Using Current wt Calories/Kcals/Kg 23-27 Kcals Calculated 2555-5824 Protein: Using Current wt Protein g/k-1.2 Protein Calculated 62-74 Nutritional Problem No current Nutrition Prob Problem N/A Intervention/Recommendation Comments 1. Continue with current TF regimen. It provides 1440kcal, 65g protein, 972ml free water , meeting 100% of nutritional needs 2. Monitor TF rate, tolerance, wt weekly, skin integrity and labs 3. F/U as moderate risk in 3-5 days, 08/10-08/12 Expected Outcomes/Goals Expected Outcomes/Goals 1. Pt to meet at least 75% of nutritional needs via nutrition support with tolerance 2. Wt stability, skin to remain intact, labs to approach WNL.
--- NOTE | 2017-08-11 23:16 | General Progress Note ---
Subjective - Review of Systems Service Date: 08/11/17 Subjective: Patient seen and examined nursing no new concern reported Objective - Results Result Diagrams: 08/11/17 06:26 08/11/17 06:26 Recent Labs: Laboratory Last Values WBC 8.2 Th/cmm (4.8-10.8) 08/11/17 06:26 RBC 4.22 Mil/cmm (3.80-5.80) 08/11/17 06:26 Hgb 13.6 gm/dL (12-16) 08/11/17 06:26 Hct 41.4 % (41.0-60) 08/11/17 06:26 MCV 98.2 fl (80-99) 08/11/17 06:26 MCH 32.3 pg (27.0-31.0) H 08/11/17 06:26 MCHC Differential 32.9 pg (28.0-36.0) 08/11/17 06:26 RDW 13.3 % (11.5-20.0) 08/11/17 06:26 Plt Count 342 Th/cmm (150-400) 08/11/17 06:26 MPV 8.1 fl 08/11/17 06:26 Neutrophils % 51.3 % (40.0-80.0) 08/06/17 06:08 Band Neutrophils % 3 % (0-10) 08/02/17 15:43 Lymphocytes % 12.0 % (20.0-50.0) L 08/06/17 06:08 Monocytes % 11.6 % (2.0-10.0) H 08/06/17 06:08 Eosinophils % 23.9 % (0.0-5.0) H 08/06/17 06:08 Basophils % 1.2 % (0.0-2.0) 08/06/17 06:08 Neutrophils (Manual) 60 % (40-80) 08/11/17 06:26 Lymphocytes 10 % (20-50) L 08/11/17 06:26 Monocytes 9 % (2-10) 08/11/17 06:26 Eosinophils 21 % (0-5) H 08/11/17 06:26 Basophils 0 % (0-3) 08/02/17 15:43 Specimen Source Arterial 08/02/17 09:33 Sample Site RB 08/02/17 09:33 pH 7.49 (7.35-7.45) H 08/02/17 09:33 pCO2 41.0 mmHg (35.0-45.0) 08/02/17 09:33 pO2 53.0 mmHg (80.0-100.0) L 08/02/17 09:33 HCO3 30.4 mEq/L (20.0-26.0) H 08/02/17 09:33 Base Excess 7.2 mEq/L (-3.0-3.0) H 08/02/17 09:33 O2 Saturation 90.0 % (92.0-100.0) L 08/02/17 09:33 Bladimir Test NA 08/02/17 09:33 Vent Rate NA 08/02/17 09:33 Inspired O2 21 08/02/17 09:33 Tidal Volume NA 08/02/17 09:33 PEEP NA 08/02/17 09:33 Pressure (ins/psv/peep) NA 08/02/17 09:33 Critical Value LZHANG 08/02/17 09:33 Sodium 131 mEq/L (136-145) L 08/11/17 06:26 Potassium 4.0 mEq/L (3.5-5.1) 08/11/17 06:26 Chloride 99 mEq/L (98-107) 08/11/17 06:26 Carbon Dioxide 24.9 mEq/L (21.0-31.0) 08/11/17 06:26 Anion Gap 11.1 (7.0-16.0) 08/11/17 06:26 BUN 20 mg/dL (7-25) 08/11/17 06:26 Creatinine 0.9 mg/dL (0.7-1.3) 08/11/17 06:26 Est GFR ( Amer) TNP 08/11/17 06:26 Est GFR (Non-Af Amer) TNP 08/11/17 06:26 BUN/Creatinine Ratio 22.2 08/11/17 06:26 Glucose 97 mg/dL (70-105) 08/11/17 06:26 Plasma/Ser Osmolality 255 mOsmol/kg (280-301) L 08/02/17 15:43 Uric Acid 5.3 mg/dL (4.4-7.6) 08/02/17 15:43 Calcium 9.9 mg/dL (8.6-10.3) 08/11/17 06:26 Magnesium 1.9 mg/dL (1.9-2.7) 08/04/17 06:42 Total Bilirubin 0.4 mg/dL (0.3-1.0) 08/11/17 06:26 AST 15 U/L (13-39) 08/11/17 06:26 ALT 6 U/L (7-52) L 08/11/17 06:26 Alkaline Phosphatase 64 U/L (34-104) 08/11/17 06:26 Ammonia 48 umol/L (16-53) 08/03/17 03:10 Total Protein 7.3 gm/dL (6.0-8.3) 08/11/17 06:26 Albumin 3.7 gm/dL (4.2-5.5) L 08/11/17 06:26 Globulin 3.6 gm/dL 08/11/17 06:26 Albumin/Globulin Ratio 1.0 (1.0-1.8) 08/11/17 06:26 TSH 5.34 uIU/ml (0.34-5.60) 08/02/17 15:43 Urine Source RANDOM 08/02/17 15:00 Urine Color YELLOW 08/02/17 15:00 Urine Clarity CLEAR (CLEAR) 08/02/17 15:00 Urine pH 6.5 (4.6 - 8.0) 08/02/17 15:00 Ur Specific [place] <= 1.005 (1.005-1.030) 08/02/17 15:00 Urine Protein NEGATIVE mg/dL (NEGATIVE) 08/02/17 15:00 Urine Glucose (UA) NEGATIVE mg/dL (NEGATIVE) 08/02/17 15:00 Urine Ketones NEGATIVE mg/dL (NEGATIVE) 08/02/17 15:00 Urine Blood TRACE (NEGATIVE) 08/02/17 15:00 Urine Nitrate NEGATIVE (NEGATIVE) 08/02/17 15:00 Urine Bilirubin NEGATIVE (NEGATIVE) 08/02/17 15:00 Urine Urobilinogen 0.2 E.U./dL (0.2 - 1.0) 08/02/17 15:00 Ur Leukocyte Esterase NEGATIVE (NEGATIVE) 08/02/17 15:00 Urine RBC 0-2 /hpf (0-5) H 08/02/17 15:00 Urine WBC 0-2 /hpf (0-5) 08/02/17 15:00 Ur Epithelial Cells NONE SEEN /lpf (FEW) 08/02/17 15:00 Urine Bacteria NONE SEEN /hpf (NONE SEEN) 08/02/17 15:00 Urine Osmolality 475 mOsmol/kg 08/06/17 21:00 - Physical Exam Vitals and I&O: Vital Signs Temp 98.2 F 08/11/17 18:00 Pulse 58 08/11/17 18:50 Resp 18 08/11/17 18:50 BP 144/66 08/11/17 18:00 Pulse Ox 93 08/11/17 18:50 Intake & Output 08/11/17 08/11/17 08/12/17 06:59 18:59 06:59 Intake Total 600 800 Balance 600 800 Weight (lbs) 61.235 kg 61.235 kg Intake: Oral 0 Tube Feeding 600 600 Other 200 Other: # Voids 3 3 # Bowel Movements 1 1 Stool Characteristics Soft Soft Formed Formed Active Medications: Current Medications Acetaminophen (Tylenol) 650 mg PO Q6H PRN PRN Reason: Mild Pain/Headache/T above 101 Stop: 10/01/17 19:00 Last Admin: 08/05/17 04:46 Dose: 650 mg Albuterol/Ipratropium (Duoneb Neb) 3 ml HHN [id number] [facility] Stop: 10/02/17 06:59 Last Admin: 08/11/17 18:50 Dose: 3 ml Carvedilol (Coreg) 25 mg PO BID [facility] Stop: 10/09/17 16:59 Last Admin: 08/11/17 16:54 Dose: 25 mg Ondansetron HCl (Zofran) 4 mg IVP Q6H PRN PRN Reason: Nausea / Vomiting Stop: 10/01/17 19:00 Pantoprazole Sodium (Protonix) 40 mg PO DAILY [facility] Stop: 10/06/17 09:44 Last Admin: 08/11/17 09:06 Dose: 40 mg Polyethylene Glycol (Miralax) 17 gm GT DAILY [facility] Stop: 10/08/17 08:59 Last Admin: 08/11/17 09:06 Dose: 17 gm Sodium Chloride (Saline Flush) 10 ml IV QSHIFT [facility] Stop: 10/01/17 19:59 Last Admin: 08/11/17 17:02 Dose: 10 ml General: No acute distress Cardiovascular: Regular rate Lungs: Clear to auscultation Abdomen: Soft, no Tender, no Guarding Extremities: Other (No edema, cyanosis, clubbing.) Neurological: Other (Alert awake and following commands.) - Procedures Procedures: Procedures Procedure Code Date CHANGE FEEDING DEVICE IN UP INTEST TRACT, RE[employer]UITING [employer]PERATIONS CONSULTANT APPROACH [id number] 08/02/17 CHANGE GASTROSTOMY TUBE 61121 08/02/17 Assessment/Plan - Assessment Assessment: HTN Dysphagia G tube status Mental health disorder Constipation - Plan Plan: Continue current treatment Monitor BP 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 Plan of care discussed with nursing staff Continue current treatment Psych follow up Nutritional Asmnt/Malnutr-PDOC - Dietary Evaluation Malnutrition Findings (Please click <Entered> for more info): Nutritional Asmnt/Malnutrition Start: 08/07/17 14: 53 Text: Status: Complete Freq: Document 08/07/17 14:53 TATO (Rec: 08/07/17 15:02 TATO [id number]) Nutritional Asmnt/Malnutrition Patient General Information Nutritional Screening Moderate Risk Diagnosis ALOC Pertinent Medical Hx/Surgical Hx throat cancer, dysphagia with g tube, DJD, psychotic disorder, alcholism use Subjective Information Pt seen lying in bed at time of visit. Verified TF running at 50ml/hr. Per RN, TF runs continuous. No residual noted per EMR. Current Diet Order/ Nutrition Support Fibersource HN 50ml/hr Pertinent Medications protonix Pertinent Labs 08/06 Na 131, K 3.7 (improved), Cl 96, BUN 10, Cr 0.9, GLucos 120 Nutritional Hx/Data Height 1.55 m Height (Calculated Centimeters) 154.9 Current Weight (lbs) 61.689 kg Weight (Calculated Kilograms) 61.7 Weight (Calculated Grams) 45286.6 [place] Body Weight 112 Body Mass Index (BMI) 25.7 Weight Status Overweight GI Symptoms GI Symptoms None Last BM 08/05 Difficult in: None Skin Integrity/Comment: skin tear multiple sites Estimated Nutritional Goals BEE in Kcals: Using Current wt Calories/Kcals/Kg 23-27 Kcals Calculated 9393-6807 Protein: Using Current wt Protein g/k-1.2 Protein Calculated 62-74 Nutritional Problem No current Nutrition Prob Problem N/A Intervention/Recommendation Comments 1. Continue with current TF regimen. It provides 1440kcal, 65g protein, 972ml free water , meeting 100% of nutritional needs 2. Monitor TF rate, tolerance, wt weekly, skin integrity and labs 3. F/U as moderate risk in 3-5 days, 08/10-08/12 Expected Outcomes/Goals Expected Outcomes/Goals 1. Pt to meet at least 75% of nutritional needs via nutrition support with tolerance 2. Wt stability, skin to remain intact, labs to approach WNL.
--- NOTE | 2017-08-12 03:04 | Progress Notes ---
DATE: 08/11/2017 Case was discussed with staff of the patient, reviewed records. The patient continues to be confused, continues to be unpredictable and impulsive. Continues to have poor insight; however, in general, the staff reports he is doing better, he is sleeping better, eating better responding to redirection better. No side effects with the medication. Thank you very much for allowing me to participate in the care of this most interesting gentleman. Dr. Juárez will follow up with him. JOB# [id number]
[2017-08-12] MEDS: Albuterol/Ipratropium Neb 3 ML AERS HHN SCH ×3 (07:24→19:24)
[2017-08-12] MEDS: POLYETHYLENE GLYCOL 3350 17 GM PACK GT SCH (09:01)
[2017-08-12] MEDS: Pantoprazole 40 mg/Packet PO SCH (09:01)
--- NOTE | 2017-08-12 10:05 | Progress Notes ---
DATE: 08/12/2017 SUBJECTIVE: Chart reviewed and the patient interviewed. I also discussed the patient's condition with the staff and reviewed records and labs. The patient is slightly calmer than before. The patient also is less agitated and less irritable. He also is trying to interact, but he is confused and needs redirections. He also is still unpredictable. Otherwise, the patient continued to comply with taking his medications with no side effects and at this time, the patient's psychotropic medications are upheld. ASSESSMENT: The patient is still psychotic and confused. TREATMENT PLAN: We will continue monitoring his behavior and his condition closely and we will continue to work upon his irritability and behavioral modification and continue to follow up. [facility]# [id number]
--- NOTE | 2017-08-12 10:15 | General Progress Note ---
Subjective - Review of Systems Subjective: Patient is seen and examined. Patient is on 5250 hold. Patient denies any chest pain, shortness of breath, palpitation, dizziness, nausea, vomiting, headache. Objective - Results Result Diagrams: 08/11/17 06:26 08/11/17 06:26 Recent Labs: Laboratory Last Values WBC 8.2 Th/cmm (4.8-10.8) 08/11/17 06:26 RBC 4.22 Mil/cmm (3.80-5.80) 08/11/17 06:26 Hgb 13.6 gm/dL (12-16) 08/11/17 06:26 Hct 41.4 % (41.0-60) 08/11/17 06:26 MCV 98.2 fl (80-99) 08/11/17 06:26 MCH 32.3 pg (27.0-31.0) H 08/11/17 06:26 MCHC Differential 32.9 pg (28.0-36.0) 08/11/17 06:26 RDW 13.3 % (11.5-20.0) 08/11/17 06:26 Plt Count 342 Th/cmm (150-400) 08/11/17 06:26 MPV 8.1 fl 08/11/17 06:26 Neutrophils % 51.3 % (40.0-80.0) 08/06/17 06:08 Band Neutrophils % 3 % (0-10) 08/02/17 15:43 Lymphocytes % 12.0 % (20.0-50.0) L 08/06/17 06:08 Monocytes % 11.6 % (2.0-10.0) H 08/06/17 06:08 Eosinophils % 23.9 % (0.0-5.0) H 08/06/17 06:08 Basophils % 1.2 % (0.0-2.0) 08/06/17 06:08 Neutrophils (Manual) 60 % (40-80) 08/11/17 06:26 Lymphocytes 10 % (20-50) L 08/11/17 06:26 Monocytes 9 % (2-10) 08/11/17 06:26 Eosinophils 21 % (0-5) H 08/11/17 06:26 Basophils 0 % (0-3) 08/02/17 15:43 Specimen Source Arterial 08/02/17 09:33 Sample Site RB 08/02/17 09:33 pH 7.49 (7.35-7.45) H 08/02/17 09:33 pCO2 41.0 mmHg (35.0-45.0) 08/02/17 09:33 pO2 53.0 mmHg (80.0-100.0) L 08/02/17 09:33 HCO3 30.4 mEq/L (20.0-26.0) H 08/02/17 09:33 Base Excess 7.2 mEq/L (-3.0-3.0) H 08/02/17 09:33 O2 Saturation 90.0 % (92.0-100.0) L 08/02/17 09:33 Bladimir Test NA 08/02/17 09:33 Vent Rate NA 08/02/17 09:33 Inspired O2 21 08/02/17 09:33 Tidal Volume NA 08/02/17 09:33 PEEP NA 08/02/17 09:33 Pressure (ins/psv/peep) NA 08/02/17 09:33 Critical Value LZHANG 08/02/17 09:33 Sodium 131 mEq/L (136-145) L 08/11/17 06:26 Potassium 4.0 mEq/L (3.5-5.1) 08/11/17 06:26 Chloride 99 mEq/L (98-107) 08/11/17 06:26 Carbon Dioxide 24.9 mEq/L (21.0-31.0) 08/11/17 06:26 Anion Gap 11.1 (7.0-16.0) 08/11/17 06:26 BUN 20 mg/dL (7-25) 08/11/17 06:26 Creatinine 0.9 mg/dL (0.7-1.3) 08/11/17 06:26 Est GFR ( Amer) TNP 08/11/17 06:26 Est GFR (Non-Af Amer) TNP 08/11/17 06:26 BUN/Creatinine Ratio 22.2 08/11/17 06:26 Glucose 97 mg/dL (70-105) 08/11/17 06:26 POC Glucose 134 MG/DL (70 - 105) H 08/12/17 06:06 Plasma/Ser Osmolality 255 mOsmol/kg (280-301) L 08/02/17 15:43 Uric Acid 5.3 mg/dL (4.4-7.6) 08/02/17 15:43 Calcium 9.9 mg/dL (8.6-10.3) 08/11/17 06:26 Magnesium 1.9 mg/dL (1.9-2.7) 08/04/17 06:42 Total Bilirubin 0.4 mg/dL (0.3-1.0) 08/11/17 06:26 AST 15 U/L (13-39) 08/11/17 06:26 ALT 6 U/L (7-52) L 08/11/17 06:26 Alkaline Phosphatase 64 U/L (34-104) 08/11/17 06:26 Ammonia 48 umol/L (16-53) 08/03/17 03:10 Total Protein 7.3 gm/dL (6.0-8.3) 08/11/17 06:26 Albumin 3.7 gm/dL (4.2-5.5) L 08/11/17 06:26 Globulin 3.6 gm/dL 08/11/17 06:26 Albumin/Globulin Ratio 1.0 (1.0-1.8) 08/11/17 06:26 TSH 5.34 uIU/ml (0.34-5.60) 08/02/17 15:43 Urine Source RANDOM 08/02/17 15:00 Urine Color YELLOW 08/02/17 15:00 Urine Clarity CLEAR (CLEAR) 08/02/17 15:00 Urine pH 6.5 (4.6 - 8.0) 08/02/17 15:00 Ur Specific [place] <= 1.005 (1.005-1.030) 08/02/17 15:00 Urine Protein NEGATIVE mg/dL (NEGATIVE) 08/02/17 15:00 Urine Glucose (UA) NEGATIVE mg/dL (NEGATIVE) 08/02/17 15:00 Urine Ketones NEGATIVE mg/dL (NEGATIVE) 08/02/17 15:00 Urine Blood TRACE (NEGATIVE) 08/02/17 15:00 Urine Nitrate NEGATIVE (NEGATIVE) 08/02/17 15:00 Urine Bilirubin NEGATIVE (NEGATIVE) 08/02/17 15:00 Urine Urobilinogen 0.2 E.U./dL (0.2 - 1.0) 08/02/17 15:00 Ur Leukocyte Esterase NEGATIVE (NEGATIVE) 08/02/17 15:00 Urine RBC 0-2 /hpf (0-5) H 08/02/17 15:00 Urine WBC 0-2 /hpf (0-5) 08/02/17 15:00 Ur Epithelial Cells NONE SEEN /lpf (FEW) 08/02/17 15:00 Urine Bacteria NONE SEEN /hpf (NONE SEEN) 08/02/17 15:00 Urine Osmolality 475 mOsmol/kg 08/06/17 21:00 - Physical Exam Vitals and I&O: Vital Signs Temp 97.5 F 08/12/17 04:00 Pulse 67 08/12/17 09:01 Resp 18 08/12/17 07:28 BP 177/85 08/12/17 09:01 Pulse Ox 97 08/12/17 07:28 Intake & Output 08/11/17 08/12/17 08/12/17 18:59 06:59 18:59 Intake Total 800 750 Output Total 600 Balance 800 150 Weight (lbs) 61.235 kg 61.235 kg Intake: Oral 0 Tube Feeding 600 500 Other 200 250 Output: Urine 600 Other: # Voids 3 3 # Bowel Movements 1 1 Stool Characteristics Soft Soft Formed Formed Active Medications: Current Medications Acetaminophen (Tylenol) 650 mg PO Q6H PRN PRN Reason: Mild Pain/Headache/T above 101 Stop: 10/01/17 19:00 Last Admin: 08/05/17 04:46 Dose: 650 mg Albuterol/Ipratropium (Duoneb Neb) 3 ml HHN [id number] [facility] Stop: 10/02/17 06:59 Last Admin: 08/12/17 07:24 Dose: 3 ml Carvedilol (Coreg) 25 mg PO BID [facility] Stop: 10/09/17 16:59 Last Admin: 08/12/17 09:01 Dose: 25 mg Ondansetron HCl (Zofran) 4 mg IVP Q6H PRN PRN Reason: Nausea / Vomiting Stop: 10/01/17 19:00 Pantoprazole Sodium (Protonix) 40 mg PO DAILY [facility] Stop: 10/06/17 09:44 Last Admin: 08/12/17 09:01 Dose: 40 mg Polyethylene Glycol (Miralax) 17 gm GT DAILY [facility] Stop: 10/08/17 08:59 Last Admin: 08/12/17 09:01 Dose: 17 gm Sodium Chloride (Saline Flush) 10 ml IV QSHIFT [facility] Stop: 10/01/17 19:59 Last Admin: 08/12/17 09:02 Dose: 10 ml General: No acute distress HEENT: PERRLA Neck: Supple Cardiovascular: Regular rate Lungs: Clear to auscultation Abdomen: Soft, no Tender, no Guarding Extremities: Other (No edema, cyanosis, clubbing.) Neurological: Other (Alert awake and following commands.) - Procedures Procedures: Procedures Procedure Code Date CHANGE FEEDING DEVICE IN UP INTEST TRACT, DIRECTOR [employer]USTRIAL NURSING APPROACH [id number] 08/02/17 CHANGE GASTROSTOMY TUBE 13419 08/02/17 Assessment/Plan - Assessment Assessment: Hyponatremia resolved. Altered mental status resolved. Metabolic encephalopathy resolved. Alcoholism. History of throat cancer. Status post gastrostomy tube placement for dysphagia. Hypertension. DJD. Psych disorder. - Plan Plan: Patient does look clinically stable at this time. Patient can go to [facility] for psychiatry treatment OR dc to home. Patient has been advised at this time to continue feeding along with other medication as patient is receiving. Care plan reviewed with the assigned nurse as well. Nutritional Asmnt/Malnutr-PDOC - Dietary Evaluation Malnutrition Findings (Please click <Entered> for more info): Nutritional Asmnt/Malnutrition Start: 08/07/17 14: 53 Text: Status: Complete Freq: Document 08/07/17 14:53 LCHENG (Rec: 08/07/17 15:02 LCHENG [email or web address]) Nutritional Asmnt/Malnutrition Patient General Information Nutritional Screening Moderate Risk Diagnosis ALOC Pertinent Medical Hx/Surgical Hx throat cancer, dysphagia with g tube, DJD, psychotic disorder, alcholism use Subjective Information Pt seen lying in bed at time of visit. Verified TF running at 50ml/hr. Per RN, TF runs continuous. No residual noted per EMR. Current Diet Order/ Nutrition Support Fibersource HN 50ml/hr Pertinent Medications protonix Pertinent Labs 08/06 Na 131, K 3.7 (improved), Cl 96, BUN 10, Cr 0.9, GLucos 120 Nutritional Hx/Data Height 1.55 m Height (Calculated Centimeters) 154.9 Current Weight (lbs) 61.689 kg Weight (Calculated Kilograms) 61.7 Weight (Calculated Grams) 07321.6 [place] Body Weight 112 Body Mass Index (BMI) 25.7 Weight Status Overweight GI Symptoms GI Symptoms None Last BM 08/05 Difficult in: None Skin Integrity/Comment: skin tear multiple sites Estimated Nutritional Goals BEE in Kcals: Using Current wt Calories/Kcals/Kg 23-27 Kcals Calculated 6431-4908 Protein: Using Current wt Protein g/k-1.2 Protein Calculated 62-74 Nutritional Problem No current Nutrition Prob Problem N/A Intervention/Recommendation Comments 1. Continue with current TF regimen. It provides 1440kcal, 65g protein, 972ml free water , meeting 100% of nutritional needs 2. Monitor TF rate, tolerance, wt weekly, skin integrity and labs 3. F/U as moderate risk in 3-5 days, 08/10-08/12 Expected Outcomes/Goals Expected Outcomes/Goals 1. Pt to meet at least 75% of nutritional needs via nutrition support with tolerance 2. Wt stability, skin to remain intact, labs to approach WNL.
--- NOTE | 2017-08-12 15:13 | General Progress Note ---
Subjective - Review of Systems Service Date: 08/12/17 Subjective: pt seen and examined Objective - Results Result Diagrams: 08/11/17 06:26 08/11/17 06:26 Recent Labs: Laboratory Last Values WBC 8.2 Th/cmm (4.8-10.8) 08/11/17 06:26 RBC 4.22 Mil/cmm (3.80-5.80) 08/11/17 06:26 Hgb 13.6 gm/dL (12-16) 08/11/17 06:26 Hct 41.4 % (41.0-60) 08/11/17 06:26 MCV 98.2 fl (80-99) 08/11/17 06:26 MCH 32.3 pg (27.0-31.0) H 08/11/17 06:26 MCHC Differential 32.9 pg (28.0-36.0) 08/11/17 06:26 RDW 13.3 % (11.5-20.0) 08/11/17 06:26 Plt Count 342 Th/cmm (150-400) 08/11/17 06:26 MPV 8.1 fl 08/11/17 06:26 Neutrophils % 51.3 % (40.0-80.0) 08/06/17 06:08 Band Neutrophils % 3 % (0-10) 08/02/17 15:43 Lymphocytes % 12.0 % (20.0-50.0) L 08/06/17 06:08 Monocytes % 11.6 % (2.0-10.0) H 08/06/17 06:08 Eosinophils % 23.9 % (0.0-5.0) H 08/06/17 06:08 Basophils % 1.2 % (0.0-2.0) 08/06/17 06:08 Neutrophils (Manual) 60 % (40-80) 08/11/17 06:26 Lymphocytes 10 % (20-50) L 08/11/17 06:26 Monocytes 9 % (2-10) 08/11/17 06:26 Eosinophils 21 % (0-5) H 08/11/17 06:26 Basophils 0 % (0-3) 08/02/17 15:43 Specimen Source Arterial 08/02/17 09:33 Sample Site RB 08/02/17 09:33 pH 7.49 (7.35-7.45) H 08/02/17 09:33 pCO2 41.0 mmHg (35.0-45.0) 08/02/17 09:33 pO2 53.0 mmHg (80.0-100.0) L 08/02/17 09:33 HCO3 30.4 mEq/L (20.0-26.0) H 08/02/17 09:33 Base Excess 7.2 mEq/L (-3.0-3.0) H 08/02/17 09:33 O2 Saturation 90.0 % (92.0-100.0) L 08/02/17 09:33 Bladimir Test NA 08/02/17 09:33 Vent Rate NA 08/02/17 09:33 Inspired O2 21 08/02/17 09:33 Tidal Volume NA 08/02/17 09:33 PEEP NA 08/02/17 09:33 Pressure (ins/psv/peep) NA 08/02/17 09:33 Critical Value LZHANG 08/02/17 09:33 Sodium 131 mEq/L (136-145) L 08/11/17 06:26 Potassium 4.0 mEq/L (3.5-5.1) 08/11/17 06:26 Chloride 99 mEq/L (98-107) 08/11/17 06:26 Carbon Dioxide 24.9 mEq/L (21.0-31.0) 08/11/17 06:26 Anion Gap 11.1 (7.0-16.0) 08/11/17 06:26 BUN 20 mg/dL (7-25) 08/11/17 06:26 Creatinine 0.9 mg/dL (0.7-1.3) 08/11/17 06:26 Est GFR ( Amer) TNP 08/11/17 06:26 Est GFR (Non-Af Amer) TNP 08/11/17 06:26 BUN/Creatinine Ratio 22.2 08/11/17 06:26 Glucose 97 mg/dL (70-105) 08/11/17 06:26 POC Glucose 134 MG/DL (70 - 105) H 08/12/17 06:06 Plasma/Ser Osmolality 255 mOsmol/kg (280-301) L 08/02/17 15:43 Uric Acid 5.3 mg/dL (4.4-7.6) 08/02/17 15:43 Calcium 9.9 mg/dL (8.6-10.3) 08/11/17 06:26 Magnesium 1.9 mg/dL (1.9-2.7) 08/04/17 06:42 Total Bilirubin 0.4 mg/dL (0.3-1.0) 08/11/17 06:26 AST 15 U/L (13-39) 08/11/17 06:26 ALT 6 U/L (7-52) L 08/11/17 06:26 Alkaline Phosphatase 64 U/L (34-104) 08/11/17 06:26 Ammonia 48 umol/L (16-53) 08/03/17 03:10 Total Protein 7.3 gm/dL (6.0-8.3) 08/11/17 06:26 Albumin 3.7 gm/dL (4.2-5.5) L 08/11/17 06:26 Globulin 3.6 gm/dL 08/11/17 06:26 Albumin/Globulin Ratio 1.0 (1.0-1.8) 08/11/17 06:26 TSH 5.34 uIU/ml (0.34-5.60) 08/02/17 15:43 Urine Source RANDOM 08/02/17 15:00 Urine Color YELLOW 08/02/17 15:00 Urine Clarity CLEAR (CLEAR) 08/02/17 15:00 Urine pH 6.5 (4.6 - 8.0) 08/02/17 15:00 Ur Specific [place] <= 1.005 (1.005-1.030) 08/02/17 15:00 Urine Protein NEGATIVE mg/dL (NEGATIVE) 08/02/17 15:00 Urine Glucose (UA) NEGATIVE mg/dL (NEGATIVE) 08/02/17 15:00 Urine Ketones NEGATIVE mg/dL (NEGATIVE) 08/02/17 15:00 Urine Blood TRACE (NEGATIVE) 08/02/17 15:00 Urine Nitrate NEGATIVE (NEGATIVE) 08/02/17 15:00 Urine Bilirubin NEGATIVE (NEGATIVE) 08/02/17 15:00 Urine Urobilinogen 0.2 E.U./dL (0.2 - 1.0) 08/02/17 15:00 Ur Leukocyte Esterase NEGATIVE (NEGATIVE) 08/02/17 15:00 Urine RBC 0-2 /hpf (0-5) H 08/02/17 15:00 Urine WBC 0-2 /hpf (0-5) 08/02/17 15:00 Ur Epithelial Cells NONE SEEN /lpf (FEW) 08/02/17 15:00 Urine Bacteria NONE SEEN /hpf (NONE SEEN) 08/02/17 15:00 Urine Osmolality 475 mOsmol/kg 08/06/17 21:00 - Physical Exam Vitals and I&O: Vital Signs Temp 97.5 F 08/12/17 04:00 Pulse 61 08/12/17 13:40 Resp 18 08/12/17 13:40 BP 177/85 08/12/17 09:01 Pulse Ox 96 08/12/17 13:40 Intake & Output 08/11/17 08/12/17 08/12/17 18:59 06:59 18:59 Intake Total 800 750 Output Total 600 Balance 800 150 Weight (lbs) 61.235 kg 61.235 kg Intake: Oral 0 Tube Feeding 600 500 Other 200 250 Output: Urine 600 Other: # Voids 3 3 # Bowel Movements 1 1 Stool Characteristics Soft Soft Formed Formed Active Medications: Current Medications Acetaminophen (Tylenol) 650 mg PO Q6H PRN PRN Reason: Mild Pain/Headache/T above 101 Stop: 10/01/17 19:00 Last Admin: 08/05/17 04:46 Dose: 650 mg Albuterol/Ipratropium (Duoneb Neb) 3 ml HHN [id number] [facility] Stop: 10/02/17 06:59 Last Admin: 08/12/17 13:37 Dose: 3 ml Carvedilol (Coreg) 25 mg PO BID [facility] Stop: 10/09/17 16:59 Last Admin: 08/12/17 09:01 Dose: 25 mg Ondansetron HCl (Zofran) 4 mg IVP Q6H PRN PRN Reason: Nausea / Vomiting Stop: 10/01/17 19:00 Pantoprazole Sodium (Protonix) 40 mg PO DAILY [facility] Stop: 10/06/17 09:44 Last Admin: 08/12/17 09:01 Dose: 40 mg Polyethylene Glycol (Miralax) 17 gm GT DAILY [facility] Stop: 10/08/17 08:59 Last Admin: 08/12/17 09:01 Dose: 17 gm Sodium Chloride (Saline Flush) 10 ml IV QSHIFT [facility] Stop: 10/01/17 19:59 Last Admin: 08/12/17 09:02 Dose: 10 ml General: No acute distress HEENT: PERRLA Neck: Supple Cardiovascular: Regular rate Lungs: Clear to auscultation Abdomen: Soft, no Tender, no Guarding Extremities: Other (No edema, cyanosis, clubbing.) Neurological: Other (Alert awake and following commands.) - Procedures Procedures: Procedures Procedure Code Date CHANGE FEEDING DEVICE IN UP INTEST TRACT, RN LONG TERM CARE APPROACH [id number] 08/02/17 CHANGE GASTROSTOMY TUBE 35438 08/02/17 Assessment/Plan - Assessment Assessment: hyponatremia hypokalemia alcoholism - Plan Plan: monitor serum sodium slightly low serum sodium Nutritional Asmnt/Malnutr-PDOC - Dietary Evaluation Malnutrition Findings (Please click <Entered> for more info): Nutritional Asmnt/Malnutrition Start: 08/07/17 14: 53 Text: Status: Complete Freq: Document 08/07/17 14:53 TAIWO (Rec: 08/07/17 15:02 [email or web address] Nutritional Asmnt/Malnutrition Patient General Information Nutritional Screening Moderate Risk Diagnosis ALOC Pertinent Medical Hx/Surgical Hx throat cancer, dysphagia with g tube, DJD, psychotic disorder, alcholism use Subjective Information Pt seen lying in bed at time of visit. Verified TF running at 50ml/hr. Per RN, TF runs continuous. No residual noted per EMR. Current Diet Order/ Nutrition Support Fibersource HN 50ml/hr Pertinent Medications protonix Pertinent Labs 08/06 Na 131, K 3.7 (improved), Cl 96, BUN 10, Cr 0.9, GLucos 120 Nutritional Hx/Data Height 1.55 m Height (Calculated Centimeters) 154.9 Current Weight (lbs) 61.689 kg Weight (Calculated Kilograms) 61.7 Weight (Calculated Grams) 83213.6 [place] Body Weight 112 Body Mass Index (BMI) 25.7 Weight Status Overweight GI Symptoms GI Symptoms None Last BM 08/05 Difficult in: None Skin Integrity/Comment: skin tear multiple sites Estimated Nutritional Goals BEE in Kcals: Using Current wt Calories/Kcals/Kg 23-27 Kcals Calculated 4953-4494 Protein: Using Current wt Protein g/k-1.2 Protein Calculated 62-74 Nutritional Problem No current Nutrition Prob Problem N/A Intervention/Recommendation Comments 1. Continue with current TF regimen. It provides 1440kcal, 65g protein, 972ml free water , meeting 100% of nutritional needs 2. Monitor TF rate, tolerance, wt weekly, skin integrity and labs 3. F/U as moderate risk in 3-5 days, 08/10-08/12 Expected Outcomes/Goals Expected Outcomes/Goals 1. Pt to meet at least 75% of nutritional needs via nutrition support with tolerance 2. Wt stability, skin to remain intact, labs to approach WNL.
[2017-08-13] MEDS: Albuterol/Ipratropium Neb 3 ML AERS HHN SCH ×2 (07:17→13:16)
[2017-08-13] MEDS: POLYETHYLENE GLYCOL 3350 17 GM PACK GT SCH (08:27)
[2017-08-13] MEDS: Pantoprazole 40 mg/Packet PO SCH (08:28)
--- NOTE | 2017-08-13 08:32 | Progress Notes ---
DATE: SUBJECTIVE: Chart reviewed and the patient interviewed. Also discussed the patient's condition with the staff and reviewed records and labs. The patient continued to be calmer and less agitated and less irritable. Also, he is interacting more with peers and with others. The patient also is compliant with taking his medications with no side effect of medications. ASSESSMENT: The patient is less agitated and less psychotic. TREATMENT PLAN: We will continue to monitor his behavior and his condition closely and continue to follow up. [facility]# [id number]
--- NOTE | 2017-08-13 09:03 | General Progress Note ---
Subjective - Review of Systems Subjective: Patient is seen and examined. Patient denies any chest pain, shortness of breath, palpitation, dizziness, nausea, vomiting, headache. Patient wants to go home. Discussed with case mangement yesterday re; safe discharge at home. Objective - Results Result Diagrams: 08/11/17 06:26 08/11/17 06:26 Recent Labs: Laboratory Last Values WBC 8.2 Th/cmm (4.8-10.8) 08/11/17 06:26 RBC 4.22 Mil/cmm (3.80-5.80) 08/11/17 06:26 Hgb 13.6 gm/dL (12-16) 08/11/17 06:26 Hct 41.4 % (41.0-60) 08/11/17 06:26 MCV 98.2 fl (80-99) 08/11/17 06:26 MCH 32.3 pg (27.0-31.0) H 08/11/17 06:26 MCHC Differential 32.9 pg (28.0-36.0) 08/11/17 06:26 RDW 13.3 % (11.5-20.0) 08/11/17 06:26 Plt Count 342 Th/cmm (150-400) 08/11/17 06:26 MPV 8.1 fl 08/11/17 06:26 Neutrophils % 51.3 % (40.0-80.0) 08/06/17 06:08 Band Neutrophils % 3 % (0-10) 08/02/17 15:43 Lymphocytes % 12.0 % (20.0-50.0) L 08/06/17 06:08 Monocytes % 11.6 % (2.0-10.0) H 08/06/17 06:08 Eosinophils % 23.9 % (0.0-5.0) H 08/06/17 06:08 Basophils % 1.2 % (0.0-2.0) 08/06/17 06:08 Neutrophils (Manual) 60 % (40-80) 08/11/17 06:26 Lymphocytes 10 % (20-50) L 08/11/17 06:26 Monocytes 9 % (2-10) 08/11/17 06:26 Eosinophils 21 % (0-5) H 03/18/18 06:26 Basophils 0 % (0-3) 08/02/17 15:43 Specimen Source Arterial 08/02/17 09:33 Sample Site RB 08/02/17 09:33 pH 7.49 (7.35-7.45) H 08/02/17 09:33 pCO2 41.0 mmHg (35.0-45.0) 08/02/17 09:33 pO2 53.0 mmHg (80.0-100.0) L 08/02/17 09:33 HCO3 30.4 mEq/L (20.0-26.0) H 08/02/17 09:33 Base Excess 7.2 mEq/L (-3.0-3.0) H 08/02/17 09:33 O2 Saturation 90.0 % (92.0-100.0) L 08/02/17 09:33 Bladimir Test NA 08/02/17 09:33 Vent Rate NA 08/02/17 09:33 Inspired O2 21 08/02/17 09:33 Tidal Volume NA 08/02/17 09:33 PEEP NA 08/02/17 09:33 Pressure (ins/psv/peep) NA 08/02/17 09:33 Critical Value LZHANG 08/02/17 09:33 Sodium 131 mEq/L (136-145) L 08/11/17 06:26 Potassium 4.0 mEq/L (3.5-5.1) 08/11/17 06:26 Chloride 99 mEq/L (98-107) 08/11/17 06:26 Carbon Dioxide 24.9 mEq/L (21.0-31.0) 08/11/17 06:26 Anion Gap 11.1 (7.0-16.0) 08/11/17 06:26 BUN 20 mg/dL (7-25) 08/11/17 06:26 Creatinine 0.9 mg/dL (0.7-1.3) 08/11/17 06:26 Est GFR ( Amer) TNP 08/11/17 06:26 Est GFR (Non-Af Amer) TNP 08/11/17 06:26 BUN/Creatinine Ratio 22.2 08/11/17 06:26 Glucose 97 mg/dL (70-105) 08/11/17 06:26 POC Glucose 134 MG/DL (70 - 105) H 08/12/17 06:06 Plasma/Ser Osmolality 255 mOsmol/kg (280-301) L 08/02/17 15:43 Uric Acid 5.3 mg/dL (4.4-7.6) 08/02/17 15:43 Calcium 9.9 mg/dL (8.6-10.3) 08/11/17 06:26 Magnesium 1.9 mg/dL (1.9-2.7) 08/04/17 06:42 Total Bilirubin 0.4 mg/dL (0.3-1.0) 08/11/17 06:26 AST 15 U/L (13-39) 08/11/17 06:26 ALT 6 U/L (7-52) L 08/11/17 06:26 Alkaline Phosphatase 64 U/L (34-104) 08/11/17 06:26 Ammonia 48 umol/L (16-53) 08/03/17 03:10 Total Protein 7.3 gm/dL (6.0-8.3) 08/11/17 06:26 Albumin 3.7 gm/dL (4.2-5.5) L 08/11/17 06:26 Globulin 3.6 gm/dL 08/11/17 06:26 Albumin/Globulin Ratio 1.0 (1.0-1.8) 08/11/17 06:26 TSH 5.34 uIU/ml (0.34-5.60) 08/02/17 15:43 Urine Source RANDOM 08/02/17 15:00 Urine Color YELLOW 08/02/17 15:00 Urine Clarity CLEAR (CLEAR) 08/02/17 15:00 Urine pH 6.5 (4.6 - 8.0) 08/02/17 15:00 Ur Specific [place] <= 1.005 (1.005-1.030) 08/02/17 15:00 Urine Protein NEGATIVE mg/dL (NEGATIVE) 08/02/17 15:00 Urine Glucose (UA) NEGATIVE mg/dL (NEGATIVE) 08/02/17 15:00 Urine Ketones NEGATIVE mg/dL (NEGATIVE) 08/02/17 15:00 Urine Blood TRACE (NEGATIVE) 08/02/17 15:00 Urine Nitrate NEGATIVE (NEGATIVE) 08/02/17 15:00 Urine Bilirubin NEGATIVE (NEGATIVE) 08/02/17 15:00 Urine Urobilinogen 0.2 E.U./dL (0.2 - 1.0) 08/02/17 15:00 Ur Leukocyte Esterase NEGATIVE (NEGATIVE) 08/02/17 15:00 Urine RBC 0-2 /hpf (0-5) H 08/02/17 15:00 Urine WBC 0-2 /hpf (0-5) 08/02/17 15:00 Ur Epithelial Cells NONE SEEN /lpf (FEW) 08/02/17 15:00 Urine Bacteria NONE SEEN /hpf (NONE SEEN) 08/02/17 15:00 Urine Osmolality 475 mOsmol/kg 08/06/17 21:00 - Physical Exam Vitals and I&O: Vital Signs Temp 97.6 F 08/13/17 04:00 Pulse 61 08/13/17 08:27 Resp 18 08/13/17 07:22 BP 104/71 08/13/17 08:27 Pulse Ox 96 08/13/17 07:22 Intake & Output 08/12/17 08/13/17 08/13/17 18:59 06:59 18:59 Intake Total 720 720 Balance 720 720 Weight (lbs) 61.235 kg 61.235 kg Intake: Tube Feeding 720 720 Other: # Voids 3 2 # Bowel Movements 1 Active Medications: Current Medications Acetaminophen (Tylenol) 650 mg PO Q6H PRN PRN Reason: Mild Pain/Headache/T above 101 Stop: 10/01/17 19:00 Last Admin: 08/05/17 04:46 Dose: 650 mg Albuterol/Ipratropium (Duoneb Neb) 3 ml HHN [id number] [facility] Stop: 10/02/17 06:59 Last Admin: 08/13/17 07:17 Dose: 3 ml Carvedilol (Coreg) 25 mg PO BID [facility] Stop: 10/09/17 16:59 Last Admin: 08/13/17 08:27 Dose: Not Given Ondansetron HCl (Zofran) 4 mg IVP Q6H PRN PRN Reason: Nausea / Vomiting Stop: 10/01/17 19:00 Pantoprazole Sodium (Protonix) 40 mg PO DAILY [facility] Stop: 10/06/17 09:44 Last Admin: 08/13/17 08:28 Dose: 40 mg Polyethylene Glycol (Miralax) 17 gm GT DAILY [facility] Stop: 10/08/17 08:59 Last Admin: 08/13/17 08:27 Dose: Not Given Sodium Chloride (Saline Flush) 10 ml IV QSHIFT [facility] Stop: 10/01/17 19:59 Last Admin: 08/13/17 08:28 Dose: 10 ml General: Alert, Oriented x3, Cooperative, No acute distress HEENT: Atraumatic, PERRLA, EOMI Neck: Supple Cardiovascular: Regular rate, Normal S1, Normal S2 Lungs: Clear to auscultation, Normal air movement Abdomen: Soft, no Tender, no Guarding Extremities: Other (No edema, cyanosis, clubbing.) Neurological: Other (Alert awake and following commands.) Psych/Mental Status: Mental status NL - Procedures Procedures: Procedures Procedure Code Date CHANGE FEEDING DEVICE IN UP INTEST TRACT, ISSUER APPROACH [id number] 08/02/17 CHANGE GASTROSTOMY TUBE 02207 08/02/17 Assessment/Plan - Assessment Assessment: Hyponatremia resolved. Metabolic encephalopathy resolved. Alcoholism. History of throat cancer. Status post gastrostomy tube placement for dysphagia. Hypertension. DJD. Psych disorder. - Plan Plan: Patient does look clinically stable at this time. Discharge to home with home health for med compliance,home safety and PT and OT. Patient has been advised at this time to continue feeding along with other medication as patient is receiving. Care plan reviewed with the assigned nurse as well. Nutritional Asmnt/Malnutr-PDOC - Dietary Evaluation Malnutrition Findings (Please click <Entered> for more info): Nutritional Asmnt/Malnutrition Start: 08/07/17 14: 53 Text: Status: Complete Freq: Document 08/07/17 14:53 OLIVIA (Rec: 08/07/17 15:02 [email or web address] Nutritional Asmnt/Malnutrition Patient General Information Nutritional Screening Moderate Risk Diagnosis ALOC Pertinent Medical Hx/Surgical Hx throat cancer, dysphagia with g tube, DJD, psychotic disorder, alcholism use Subjective Information Pt seen lying in bed at time of visit. Verified TF running at 50ml/hr. Per RN, TF runs continuous. No residual noted per EMR. Current Diet Order/ Nutrition Support Fibersource HN 50ml/hr Pertinent Medications protonix Pertinent Labs 08/06 Na 131, K 3.7 (improved), Cl 96, BUN 10, Cr 0.9, GLucos 120 Nutritional Hx/Data Height 1.55 m Height (Calculated Centimeters) 154.9 Current Weight (lbs) 61.689 kg Weight (Calculated Kilograms) 61.7 Weight (Calculated Grams) 16346.6 [place] Body Weight 112 Body Mass Index (BMI) 25.7 Weight Status Overweight GI Symptoms GI Symptoms None Last BM 08/05 Difficult in: None Skin Integrity/Comment: skin tear multiple sites Estimated Nutritional Goals BEE in Kcals: Using Current wt Calories/Kcals/Kg 23-27 Kcals Calculated 6022-6123 Protein: Using Current wt Protein g/k-1.2 Protein Calculated 62-74 Nutritional Problem No current Nutrition Prob Problem N/A Intervention/Recommendation Comments 1. Continue with current TF regimen. It provides 1440kcal, 65g protein, 972ml free water , meeting 100% of nutritional needs 2. Monitor TF rate, tolerance, wt weekly, skin integrity and labs 3. F/U as moderate risk in 3-5 days, 08/10-08/12 Expected Outcomes/Goals Expected Outcomes/Goals 1. Pt to meet at least 75% of nutritional needs via nutrition support with tolerance 2. Wt stability, skin to remain intact, labs to approach WNL.
--- NOTE | 2017-08-13 16:04 | General Progress Note ---
Subjective - Review of Systems Service Date: 08/13/17 Subjective: pt seen and examined no distress Objective - Results Result Diagrams: 08/11/17 06:26 08/11/17 06:26 Recent Labs: Laboratory Last Values WBC 8.2 Th/cmm (4.8-10.8) 08/11/17 06:26 RBC 4.22 Mil/cmm (3.80-5.80) 08/11/17 06:26 Hgb 13.6 gm/dL (12-16) 08/11/17 06:26 Hct 41.4 % (41.0-60) 08/11/17 06:26 MCV 98.2 fl (80-99) 08/11/17 06:26 MCH 32.3 pg (27.0-31.0) H 08/11/17 06:26 MCHC Differential 32.9 pg (28.0-36.0) 08/11/17 06:26 RDW 13.3 % (11.5-20.0) 08/11/17 06:26 Plt Count 342 Th/cmm (150-400) 08/11/17 06:26 MPV 8.1 fl 08/11/17 06:26 Neutrophils % 51.3 % (40.0-80.0) 08/06/17 06:08 Band Neutrophils % 3 % (0-10) 08/02/17 15:43 Lymphocytes % 12.0 % (20.0-50.0) L 08/06/17 06:08 Monocytes % 11.6 % (2.0-10.0) H 08/06/17 06:08 Eosinophils % 23.9 % (0.0-5.0) H 08/06/17 06:08 Basophils % 1.2 % (0.0-2.0) 08/06/17 06:08 Neutrophils (Manual) 60 % (40-80) 08/11/17 06:26 Lymphocytes 10 % (20-50) L 08/11/17 06:26 Monocytes 9 % (2-10) 08/11/17 06:26 Eosinophils 21 % (0-5) H 08/11/17 06:26 Basophils 0 % (0-3) 08/02/17 15:43 Specimen Source Arterial 08/02/17 09:33 Sample Site RB 08/02/17 09:33 pH 7.49 (7.35-7.45) H 08/02/17 09:33 pCO2 41.0 mmHg (35.0-45.0) 08/02/17 09:33 pO2 53.0 mmHg (80.0-100.0) L 08/02/17 09:33 HCO3 30.4 mEq/L (20.0-26.0) H 08/02/17 09:33 Base Excess 7.2 mEq/L (-3.0-3.0) H 08/02/17 09:33 O2 Saturation 90.0 % (92.0-100.0) L 08/02/17 09:33 Bladimir Test NA 08/02/17 09:33 Vent Rate NA 08/02/17 09:33 Inspired O2 21 08/02/17 09:33 Tidal Volume NA 08/02/17 09:33 PEEP NA 08/02/17 09:33 Pressure (ins/psv/peep) NA 08/02/17 09:33 Critical Value LZHANG 08/02/17 09:33 Sodium 131 mEq/L (136-145) L 08/11/17 06:26 Potassium 4.0 mEq/L (3.5-5.1) 08/11/17 06:26 Chloride 99 mEq/L (98-107) 08/11/17 06:26 Carbon Dioxide 24.9 mEq/L (21.0-31.0) 08/11/17 06:26 Anion Gap 11.1 (7.0-16.0) 08/11/17 06:26 BUN 20 mg/dL (7-25) 08/11/17 06:26 Creatinine 0.9 mg/dL (0.7-1.3) 08/11/17 06:26 Est GFR ( Amer) TNP 08/11/17 06:26 Est GFR (Non-Af Amer) TNP 08/11/17 06:26 BUN/Creatinine Ratio 22.2 08/11/17 06:26 Glucose 97 mg/dL (70-105) 08/11/17 06:26 POC Glucose 134 MG/DL (70 - 105) H 08/12/17 06:06 Plasma/Ser Osmolality 255 mOsmol/kg (280-301) L 08/02/17 15:43 Uric Acid 5.3 mg/dL (4.4-7.6) 08/02/17 15:43 Calcium 9.9 mg/dL (8.6-10.3) 08/11/17 06:26 Magnesium 1.9 mg/dL (1.9-2.7) 08/04/17 06:42 Total Bilirubin 0.4 mg/dL (0.3-1.0) 08/11/17 06:26 AST 15 U/L (13-39) 08/11/17 06:26 ALT 6 U/L (7-52) L 08/11/17 06:26 Alkaline Phosphatase 64 U/L (34-104) 08/11/17 06:26 Ammonia 48 umol/L (16-53) 08/03/17 03:10 Total Protein 7.3 gm/dL (6.0-8.3) 08/11/17 06:26 Albumin 3.7 gm/dL (4.2-5.5) L 08/11/17 06:26 Globulin 3.6 gm/dL 08/11/17 06:26 Albumin/Globulin Ratio 1.0 (1.0-1.8) 08/11/17 06:26 TSH 5.34 uIU/ml (0.34-5.60) 08/02/17 15:43 Urine Source RANDOM 08/02/17 15:00 Urine Color YELLOW 08/02/17 15:00 Urine Clarity CLEAR (CLEAR) 08/02/17 15:00 Urine pH 6.5 (4.6 - 8.0) 08/02/17 15:00 Ur Specific [place] <= 1.005 (1.005-1.030) 08/02/17 15:00 Urine Protein NEGATIVE mg/dL (NEGATIVE) 08/02/17 15:00 Urine Glucose (UA) NEGATIVE mg/dL (NEGATIVE) 08/02/17 15:00 Urine Ketones NEGATIVE mg/dL (NEGATIVE) 08/02/17 15:00 Urine Blood TRACE (NEGATIVE) 08/02/17 15:00 Urine Nitrate NEGATIVE (NEGATIVE) 08/02/17 15:00 Urine Bilirubin NEGATIVE (NEGATIVE) 08/02/17 15:00 Urine Urobilinogen 0.2 E.U./dL (0.2 - 1.0) 08/02/17 15:00 Ur Leukocyte Esterase NEGATIVE (NEGATIVE) 08/02/17 15:00 Urine RBC 0-2 /hpf (0-5) H 08/02/17 15:00 Urine WBC 0-2 /hpf (0-5) 08/02/17 15:00 Ur Epithelial Cells NONE SEEN /lpf (FEW) 08/02/17 15:00 Urine Bacteria NONE SEEN /hpf (NONE SEEN) 08/02/17 15:00 Urine Osmolality 475 mOsmol/kg 08/06/17 21:00 - Physical Exam Vitals and I&O: Vital Signs Temp 97.5 F 08/13/17 14:33 Pulse 64 08/13/17 14:33 Resp 18 08/13/17 14:33 BP 147/79 08/13/17 14:33 Pulse Ox 95 08/13/17 14:33 Intake & Output 08/12/17 08/13/17 08/13/17 18:59 06:59 18:59 Intake Total 720 720 600 Output Total 850 Balance 720 720 -250 Weight (lbs) 61.235 kg 61.235 kg 61.235 kg Intake: Tube Feeding 720 720 600 Output: Urine 850 Other: # Voids 3 2 # Bowel Movements 1 3 Stool Characteristics Soft Brown Active Medications: Current Medications Acetaminophen (Tylenol) 650 mg PO Q6H PRN PRN Reason: Mild Pain/Headache/T above 101 Stop: 10/01/17 19:00 Last Admin: 08/05/17 04:46 Dose: 650 mg Albuterol/Ipratropium (Duoneb Neb) 3 ml HHN [id number] [facility] Stop: 10/02/17 06:59 Last Admin: 08/13/17 13:16 Dose: 3 ml Carvedilol (Coreg) 25 mg PO BID [facility] Stop: 10/09/17 16:59 Last Admin: 08/13/17 08:27 Dose: Not Given Ondansetron HCl (Zofran) 4 mg IVP Q6H PRN PRN Reason: Nausea / Vomiting Stop: 10/01/17 19:00 Pantoprazole Sodium (Protonix) 40 mg PO DAILY [facility] Stop: 10/06/17 09:44 Last Admin: 08/13/17 08:28 Dose: 40 mg Polyethylene Glycol (Miralax) 17 gm GT DAILY [facility] Stop: 10/08/17 08:59 Last Admin: 08/13/17 08:27 Dose: Not Given Sodium Chloride (Saline Flush) 10 ml IV QSHIFT [facility] Stop: 10/01/17 19:59 Last Admin: 08/13/17 08:28 Dose: 10 ml General: Alert, Oriented x3, Cooperative, No acute distress HEENT: Atraumatic, PERRLA, EOMI Neck: Supple Cardiovascular: Regular rate, Normal S1, Normal S2 Lungs: Clear to auscultation, Normal air movement Abdomen: Soft, no Tender, no Guarding Extremities: Other (No edema, cyanosis, clubbing.) Neurological: Other (Alert awake and following commands.) Psych/Mental Status: Mental status NL - Procedures Procedures: Procedures Procedure Code Date CHANGE FEEDING DEVICE IN UP INTEST TRACT, CALIBRATION TECHNICIAN APPROACH [id number] 08/02/17 CHANGE GASTROSTOMY TUBE 71530 08/02/17 Assessment/Plan - Assessment Assessment: hyponatremia hypokalemia alcoholism - Plan Plan: monitor serum sodium stable serum sodium Nutritional Asmnt/Malnutr-PDOC - Dietary Evaluation Malnutrition Findings (Please click <Entered> for more info): Nutritional Asmnt/Malnutrition Start: 08/07/17 14: 53 Text: Status: Complete Freq: Document 08/07/17 14:53 [email or web address] (Rec: 08/07/17 15:02 [email or web address]) Nutritional Asmnt/Malnutrition Patient General Information Nutritional Screening Moderate Risk Diagnosis ALOC Pertinent Medical Hx/Surgical Hx throat cancer, dysphagia with g tube, DJD, psychotic disorder, alcholism use Subjective Information Pt seen lying in bed at time of visit. Verified TF running at 50ml/hr. Per RN, TF runs continuous. No residual noted per EMR. Current Diet Order/ Nutrition Support Fibersource HN 50ml/hr Pertinent Medications protonix Pertinent Labs 08/06 Na 131, K 3.7 (improved), Cl 96, BUN 10, Cr 0.9, GLucos 120 Nutritional Hx/Data Height 1.55 m Height (Calculated Centimeters) 154.9 Current Weight (lbs) 61.689 kg Weight (Calculated Kilograms) 61.7 Weight (Calculated Grams) 39079.6 [place] Body Weight 112 Body Mass Index (BMI) 25.7 Weight Status Overweight GI Symptoms GI Symptoms None Last BM 08/05 Difficult in: None Skin Integrity/Comment: skin tear multiple sites Estimated Nutritional Goals BEE in Kcals: Using Current wt Calories/Kcals/Kg 23-27 Kcals Calculated 6688-7236 Protein: Using Current wt Protein g/k-1.2 Protein Calculated 62-74 Nutritional Problem No current Nutrition Prob Problem N/A Intervention/Recommendation Comments 1. Continue with current TF regimen. It provides 1440kcal, 65g protein, 972ml free water , meeting 100% of nutritional needs 2. Monitor TF rate, tolerance, wt weekly, skin integrity and labs 3. F/U as moderate risk in 3-5 days, 08/10-08/12 Expected Outcomes/Goals Expected Outcomes/Goals 1. Pt to meet at least 75% of nutritional needs via nutrition support with tolerance 2. Wt stability, skin to remain intact, labs to approach WNL.
== END 2017-08-13 16:29 | disposition home health service (06) | DRG 393 ==
LOC: ER 14:51 → TELE 19:01 → MSI 08-05 09:40
PROVIDERS: ADMIT Internal Medicine; ATTEND Internal Medicine
PROC: 0D20XUZ Change Feeding Device in Upper Intestinal Tract, External Approach (ICD-10-PCS; principal; 2017-08-07)
DX: K94.23 Gastrostomy malfunction (principal); G93.41 Metabolic encephalopathy; E87.1 Hypo-osmolality and hyponatremia; R13.10 Dysphagia, unspecified; E86.0 Dehydration; F10.20 Alcohol dependence, uncomplicated; M19.90 Unspecified osteoarthritis, unspecified site; I73.9 Peripheral vascular disease, unspecified; E87.6 Hypokalemia; I10 Essential (primary) hypertension; F29 Unspecified psychosis not due to a substance or known physiological condition; S00.81XA Abrasion of other part of head, initial encounter; S50.312A Abrasion of left elbow, initial encounter; S50.311A Abrasion of right elbow, initial encounter; K59.00 Constipation, unspecified; S80.212A Abrasion, left knee, initial encounter; S80.211A Abrasion, right knee, initial encounter; F39 Unspecified mood [affective] disorder; Y83.8 Other surgical procedures as the cause of abnormal reaction of the patient, or of later complication, without mention of misadventure at the time of the procedure; F41.9 Anxiety disorder, unspecified; Y92.89 Other specified places as the place of occurrence of the external cause; Z85.89 Personal history of malignant neoplasm of other organs and systems; Z91.81 History of falling
CPT/HCPCS: 36415-UA; 36600-90; 70450-TC; 71045-TC; 71046-TC; 80048-TC; 80053-TC; 81001-TC; 82140-TC; 82803-TC; 82948-90; 83735-TC; 83930-90; 83935-90; 84443-TC; 84550-TC; 85007-TC; 85025-TC; 85027-TC; 90779; 90799; 93005; 94640; 94760; J2543; J3480; J7030; J7040; J7131; Z7610